=== PATIENT | male | born 1940 | race Caucasian/White ===

== ENCOUNTER 2016-05-28 13:55 | Inpatient (IN) | payer MEDICAID, MEDICARE ==
[~2016-05-28] VITALS: Ht 172.7 cm; Wt 78.9 kg
[2016-05-28] VITALS (8 sets, daily range): BP systolic 107–137; BP diastolic 56–68; PULSE 78–103; RESP 18–24; O2SAT 93–98
[~2016-05-28 13:55] MED LIST: ADV100INH INHALATION; IPRA4AER IH; LOSA25TA2 PO; METO25TA99 PO; Senna/Docusate Sodium PO; WARF2.5T PO
--- NOTE | 2016-05-28 14:13 | ED.REPORT ---
HPI-Dyspnea / Wheezing Date of Service May 28, 2016 ED Provider: MD Derek This is a 75 year old male with a history of COPD and CHF presenting to the emergency department due to shortness of breath that worsened 2 days ago. Associated symptoms include hemoptysis that began today and productive cough in the last few days with clear sputum. Denies fever, chills, nausea, vomiting, abdominal pain, bowel or bladder changes at this time. Started on azithromycin by PCP on , symptoms have been worsening. On 2 liters home O2. Nursing Notes Stated Complaint: SHORTNESS OF BREATH/SPITTING UP BLOOD Chief Complaint: Respiratory Distress Nursing Notes Reviewed: Yes Allergies: Coded Allergies: No Known Allergies (Unverified , 05/28/16) Scheduled ([Senna/Docusate Sodium]) 1 TABLET TABLET 2 TABLET PO DAILY ([Performist]) 20 MCG INHALATION BID Albuterol/Ipratropium (Combivent Respimat Inhal [place]) 120 Spr/4 Gm Inhaler 1 PUFF IH QID Azithromycin (Zithromax) 250 Mg Tablet 250 MG PO DAILY Budesonide (Pulmicort Flexhaler) 1 Puff/90 Mcg Aerp 1 PUFF IH BID Fluticasone/Salmeterol (Advair 100-50 Diskus) 60 Puffs/Inh Disk 1 PUFF INHALATION BID Furosemide (Furosemide) 40 Mg Tablet 40 MG PO DAILY Losartan Potassium (Cozaar) 25 Mg Tablet 50 MG PO DAILY Losartan Potassium (Losartan Potassium) 100 Mg Tablet 100 MG PO DAILY Metoprolol Succinate ER (Metoprolol Succinate ER) 50 Mg Tab.er.24h 50 MG PO BID Pantoprazole DR (Pantoprazole DR) 40 Mg Tablet.dr 40 MG PO DAILY Warfarin Sodium (Warfarin Sodium) 2.5 Mg Tablet 3.75 MG PO DAILY General Time Seen by : 14:12 Chief Complaint Other Hx Obtained From: Patient Arrived By: Walk-in Sudden in Onset?: Yes Onset Occurred: 2 days ago Symptom Duration: Since onset Severity: Current: No pain currently Pertinent Negative: Pt denies other symptoms Recent Healthcare: No recent doctor visit, No recent hospitalization Similar Sx Previous: No Past Medical History Past Medical History COPD CHF Past Surgical History none reported Smoking History Current Every Day Smoker Ambulatory Status Independent Review of Systems Constitutional: Denies: Chills, Fever Respiratory: Reports: Prod cough, bloody, Prod cough, clear, Shortness of breath Cardiovascular: Denies: Chest pain Complete sys rev & neg: except as marked. Neurologic: Denies: Lightheaded, Numbness, Weakness Physical Exam Initial Vital Signs Vital Signs (First) Date Time Temp Pulse Resp B/P Pulse Ox O2 Delivery O2 Flow Rate FiO2 05/28/16 14:05 37.3 103 24 137/68 96 Nasal Cannula 4 Initial VS: Reviewed Head / Eyes: Atraumatic, Normocephalic, PERRL ENT: Mucous membranes moist, Conjunctiva normal, No scleral icterus Extremities: Vascular intact, Neuro intact, No swelling, No tenderness Skin: Warm, Dry, No cyanosis Neurologic: Alert, Oriented, Nonfocal Psychiatric: Mood/affect normal, Behavior normal, Normal thought content General/Constitutional: Awake, Alert Neck: Atraumatic, Supple, No meningismus, Full range of motion, No swelling, Non-tender, No masses Resp Distress / Stridor: Positive: Resp distress mild Rales / Rhonchi: Positive: Rales R base Cardiovascular: No murmurs, No rubs Heart Rate / Rhythm: Positive: Tachycardia Abdomen: Non-tender, No guarding, No rebound, BS normoactive Bowel Sounds / Distention: Positive: Distention mild Interpretation & Diagnostics Lab Results Interpretation Result Diagram: 05/28/16 1410 Test 05/28/16 14:10 White Blood Count 14.1th/mm3 (3.8-10.1) Red Blood Count 3.80mil/mm3 (4.40-5.80) Hemoglobin 11.6g/dL (13.8-17.2) Hematocrit 35.4% (41.0-50.0) Mean Corpuscular Volume 93.2fL (81-100) Mean Corpuscular Hemoglobin 30.5pg (27.0-35.0) Mean Corpuscular Hemoglobin Concent 32.8% (32.0-37.0) Red Cell Distribution Width 14.6% (12.3-15.4) Platelet Count 121bil/L (150-400) Neutrophils (%) (Auto) 76.8% (40-74) Lymphocytes (%) (Auto) 10.7% (14-46) Monocytes (%) (Auto) 11.2% (4-12) Eosinophils (%) (Auto) 0.9% (0-5) Basophils (%) (Auto) 0.1% (0-3) ECG Interpretation ECG Interpretation: NSR at a rate of 94 Time: 14:32 Interpreted by: ED physician Normal ECG Interpretation: Normal rate, Normal sinus rhythm, No acute ischemic changes, Normal QRS, Normal axis, Normal intervals, No change from prior ECGs, Adequate tracing Re-Eval/Medical Decision Med Decision/Clinical Course This patient has a right lower lobe pneumonia is already on antibiotics. He is feeling outpatient treatment and all need to be admitted. The patient is somewhat hesitant about admission. He is sent out to my colleague Dr. Mitchell. Counseled Regarding: Diagnosis, Lab results, Need for follow-up Discharge & Departure Impression: Primary Impression: Pneumonia Pneumonia type: due to unspecified organism Laterality: right Lung location : lower lobe of lung Qualified Code: J18.9 - Pneumonia, unspecified organism Referrals: Natasha Garcia PAC (PCP) Care Transferred to: Dr. Mitchell Care Transferred at: 15:00 Scribe Attestation Portions of this note were transcribed by Navdeep Martinez. I, Dr. Reed personally performed the history, physical exam and medical decision-making; I reviewed and confirmed the accuracy of the information in the transcribed note. Signed by: car Ledbetter. 05/28/2016, 15:00. Danuta Reed MD May 28, 2016 14:13 NAVDEEP MARTINEZ May 28, 2016 14:15
[2016-05-28] MEDS ORDERED: PANT40TA3 PO (14:16)
[2016-05-28] MEDS ORDERED: BUDE90AE IH (14:16)
[2016-05-28] MEDS ORDERED: ZIT250 PO (14:16)
[2016-05-28] MEDS ORDERED: WARF2.5T82 PO (14:16)
[2016-05-28] MEDS ORDERED: METO-272 PO (14:16)
[2016-05-28] MEDS ORDERED: FURO40TA4 PO (14:16)
[2016-05-28] MEDS ORDERED: PERFORMIST INHALATION (14:16)
[2016-05-28] MEDS ORDERED: LOSA100T29 PO (14:16)
[2016-05-28] MEDS ORDERED: Albuterol-Ipratropium 3 mL Inhalation Solution NEB ONE (14:45)
[2016-05-28 14:51] LABS: BASOPHILS % (AUTO) 0.1 % (0-3); EOSINOPHILS % (AUTO) 0.9 % (0-5); MONOCYTES % (AUTO) 11.2 % (4-12); Mean Corpuscular Hemoglobin 30.5 pg (27.0-35.0); Mean Corpuscular Volume 93.2 fL (81-100); NEUTROPHILS % (AUTO) 76.8 % (40-74); Platelet Count 121 bil/L (150-400)
--- NOTE | 2016-05-28 14:54 | DRSVH ---
PROCEDURE: X-RAY CHEST ONE VIEW, PORTABLE ([id number]) INDICATIONS: SOB TECHNIQUE: One view of the chest was acquired. COMPARISON: [facility], CR, XR CHEST 2VW, 01/18/2016, 14:02. FINDINGS: Surgical changes and devices: None. Lungs and pleura: The lung volumes are large, the diaphragms are flattened, and there is a paucity o f superior blood vessels suggesting severe emphysematous change. Patchy pulmonary opacities are prese nt within the right mid and lower lung. Mediastinum: Mediastinal contours appear normal. Heart size is normal. Bones and chest wall: No suspicious bony lesions. Overlying soft tissues appear unremarkable. IMPRESSION: Right mid and lower lung patchy radiopacities suspicious for aspiration/infection superim posed on severe centrilobular emphysema. Short interval followup is recommended to ensure resolution of this finding and exclude underlying pulmonary pathology. Dictated by: Taniya Flor M.D. on 05/28/2016 at 14:51 Approved by: Taniya Flor M.D. on 05/28/2016 at 14:52
[2016-05-28 15:15] LABS: INR 4.13 ratio
[2016-05-28 15:18] LABS: TROPONIN T 0.033 ug/L (0.0-0.011)
[2016-05-28 15:29] LABS: Magnesium 2.3 mg/dL (1.6-2.6)
[2016-05-28] MEDS ORDERED: Albuterol 2.5 mg/3 mL Inhalation Solution NEB ONE (16:10)
[2016-05-28] MEDS ORDERED: 0.9% Sodium Chloride 1,000 ML IV ONE (16:50)
[2016-05-28] MEDS ORDERED: Piperacillin-Tazo 3.375 Gm Inj 3.375 GM in Dextrose 5% Minibag Plus 50 ML IV ONE (16:50)
[2016-05-28] MEDS ORDERED: levoFLOXacin Inj 750 MG in IV Premix 1 EACH IV ONE (16:50)
[2016-05-28] MEDS ORDERED: Alum-Mag Hydrox-Simeth 30 mL Suspension PO PRN (17:15)
[2016-05-28] MEDS ORDERED: Polyethylene Glycol (PEG) 17 Gm Powder PO PRN (17:15)
[2016-05-28] MEDS ORDERED: TRAZ150T72 PO (18:40)
--- NOTE | 2016-05-28 19:26 | NUR ---
ADMIT Report received from LICO Lamb in ED. Pt brought up to unit via gurney at 1800. Oriented to unit, room, and call light. Tele attached, IV ABX continued, O2 running at 3L. Pt strong with steady gate. Med rec completed and reviewed, admission interventions completed. Pt spitting up large amounts of blood. aware, next shift to continue with care.
[2016-05-28] MEDS: 0.9% Sodium Chloride 1,000 ML IV SCH (19:39)
[2016-05-28] MEDS: Fluticasone 100 mCg Inhaler INHALATION SCH (19:48)
[2016-05-28] MEDS: MeTOProlol XL 50 mg ER24 Tablet PO SCH (19:51)
[2016-05-28] MEDS ORDERED: Fluticasone-Salmeterol 100-50 Inhaler INHALATION SCH (20:30)
[2016-05-28] MEDS ORDERED: PERFORMIST PO SCH (20:30)
[2016-05-28] MEDS: Albuterol-Ipratropium 3 mL Inhalation Solution NEB SCH (21:30)
--- NOTE | 2016-05-28 22:49 | PCM.HPMED ---
Subjective Date of Service May 28, 2016 Primary Provider: Admitting Physician: Wisam Burns MD Primary Care Physician: Cam Alston MD Attending Physician: Wisam Burns MD Admit Status: From the Emergency Department Chief Complaint: Shortness of breath and blood in Saliva History of Present Illness: This is a 75 year-old male who states that he has noticed blood in his saliva, denying any blood in sputum or emesis. He has also been progressively short of breath for the last 2 days with increasing hypoxia. His daughter who he lives with states that his saturation was down to 70% but reached above 90% when placed on 4 L nasal cannula. There has been no chest pain or vomiting. He has had very little coughing. He has never seen blood in his saliva before. He has had pneumonia 4 times since January and is currently on erythromycin 1 tablet daily for prophylaxis. He has also gained 15 pounds in the last month and a half and has noticed increasing abdominal girth. This is likely due to increased steroid use over that time. He was started on Coumadin for bilateral femoral vein DVTs back in January. His VQ scan showed matched deficits at that time. The chest x-ray today shows a curious appearing right lower lobe infiltrate that is consistent with hemorrhage or straightforward pneumonia per my discussion with radiology. He is not showing any signs of the severe renal failure that he experienced in his last hospitalization. The creatinine has risen slightly but not to the previous levels. He quit smoking and drinking alcohol 6 months ago. He also has a history of acute on chronic heart failure with reduced ejection fraction that is followed by Dr. Martínez. His troponin today is 0.033. Review of Systems: Positive for bloody sputum/saliva, shortness of breath, increasing hypoxia. Negative for chest pain, coughing, fever, chills, sweats, nausea, vomiting, abdominal pain, dysuria, GI bleed, rash, joint pain, seizures, headaches, sore throat, new allergies, hearing loss. Allergies Coded Allergies: No Known Allergies (Unverified , 05/28/16) PMH 1. congestive heart failure, with an ejection fraction of 25%. Was found to also has severe mitral regurgitation, severe tricuspid regurgitation. 2. History of COPD. 3. History of tobacco abuse. 4. History of alcohol abuse. 5. Acute Kidney Injury 6. DVT Bilateral LE Family History Mom and dad of complications from diabetes apparently. Social History Hx Alcohol Use: No (Quit 7 days ago) Hx Substance Use: No Hx Tobacco Use: Yes Smoking Status: Former Smoker Living Arrangement: with Family (Daughter ) Additional Information PCP is Dr. Alston Weight Reduction Specialist is Dr. Novak He lives with daughter. Smoking a pack a day for 50 years, quit 6 months ago. Alcohol: Drinks 10 cans of beer per week until 6 months ago. Exam Vital Signs Vital Sign - Last Date Time Temp Pulse Resp B/P Pulse Ox O2 Delivery O2 Flow Rate FiO2 05/28/16 17:13 85 22 93 Nasal Cannula 2 05/28/16 14:05 37.3 137/68 Exam He is alert, oriented 3, quick witted, and does not appear to be in significant distress. Pupils are equally round and reactive to light and accommodation. Extraocular muscles are intact. Sclerae are pink and nonicteric. Throat looks normal. Lymph nodes are felt head, neck, supraclavicular area. No thyromegaly JVD is less than 6 cm No carotid bruits are heard Heart is regular rate and rhythm without murmur. Lungs are notable for right base crackles. Abdomen is soft, nontender, no organomegaly or mass, bowel sounds are heard Extremities have no ankle edema Skin has no rash or jaundice Neuro exam. Cranial nerves II through XII tested intact. There is no tremor. Motor function is 4/5 throughout. Lab and Diagnostics Labs INR is 4.13 BNP is 847 Pro calcitonin is 0.1 Result Diagram: 05/28/16 1410 05/28/16 1410 X-Rays, CTs and MRIs X-RAY CHEST ONE VIEW, PORTABLE ([id number]) INDICATIONS: SOB TECHNIQUE: One view of the chest was acquired. COMPARISON: [facility], CR, XR CHEST 2VW, 01/18/2016, 14:02. FINDINGS: Surgical changes and devices: None. Lungs and pleura: The lung volumes are large, the diaphragms are flattened, and there is a paucity of superior blood vessels suggesting severe emphysematous change. Patchy pulmonary opacities are present within the right mid and lower lung. Mediastinum: Mediastinal contours appear normal. Heart size is normal. Bones and chest wall: No suspicious bony lesions. Overlying soft tissues appear unremarkable. IMPRESSION: Right mid and lower lung patchy radiopacities suspicious for aspiration/infection superimposed on severe centrilobular emphysema. Short interval followup is recommended to ensure resolution of this finding and exclude underlying pulmonary pathology. Dictated by: Taniya Flor M.D. Assessment & Plan 1 - Pulmonary Hemorrhage/Pneumonia -Hold Coumadin and consider Vit K/FFP if bleeding recurs or H/H drops -He does have a documented history of DVT and so stopping anticoagulation could cause more problems than continuing it. We will see how the balance goes. -D/W radiology. The RLL infiltrate looks like Blood to me but the Procalcitonin is slightly elevated -Continue on Levaquin IV -The blood and saliva would appear to be a pulmonary source. 2 - COPD Exacerbation/Pneumonia -Begin IV Solumedrol -Continue Oxygen by NC 3 - HTN/CHF/Valvular Heart Disease and Cardiomyopathy -Continue his usual Cardiac medicines of losartan, metoprolol, Lasix. -Cautious IV fluid hydration overnight. -The BNP is 847. 4 - Acute on Chronic Kidney Disease -IVF to be given cautiously and BMP to be repeated in the morning. Darin Burns MD Pain Evaluation: Adequate Pain Control VTE Prophylaxis: Theraputic Anticoag with Warfarin Resuscitation Status: CPR: Attempt Resuscitation Wisam Burns MD May 28, 2016 18:00
[2016-05-29] VITALS (11 sets, daily range): BP systolic 114–160; BP diastolic 63–72; PULSE 91–110; RESP 20–24; O2SAT 93–99
[2016-05-29] MEDS: 0.9% Sodium Chloride 1,000 ML IV SCH ×2 (05:43→15:40)
[2016-05-29 06:03] LABS: BASOPHILS % (AUTO) 0.1 % (0-3); EOSINOPHILS % (AUTO) 1.8 % (0-5); MONOCYTES % (AUTO) 13.1 % (4-12); Mean Corpuscular Hemoglobin 30.2 pg (27.0-35.0); Mean Corpuscular Volume 93.5 fL (81-100); NEUTROPHILS % (AUTO) 69.3 % (40-74); Platelet Count 89 bil/L (150-400)
[2016-05-29 06:23] LABS: INR 3.23 ratio
--- NOTE | 2016-05-29 06:57 | NUR ---
Cough Pts cough frequency slowly decreased through out the shift. Slept well after receiving trazodone.
[2016-05-29] MEDS: Albuterol-Ipratropium 3 mL Inhalation Solution NEB SCH ×4 (07:37→20:14)
[2016-05-29] MEDS: FORMOTEROL FUMARATE INHALATION SCH ×2 (08:22→20:13)
[2016-05-29] MEDS: MeTOProlol XL 50 mg ER24 Tablet PO SCH ×2 (08:30→21:45)
[2016-05-29] MEDS: Senna-Docusate 8.6-50 mg Tablet PO SCH (09:05)
[2016-05-29] MEDS: Pantoprazole 40 mg ER24 Tablet PO SCH (09:05)
[2016-05-29] MEDS: Fluticasone 100 mCg Inhaler INHALATION SCH ×2 (11:14→21:44)
--- NOTE | 2016-05-29 11:15 | PCM.PNMED ---
Subjective Date of Service May 29, 2016 Subjective Feels like breathing is getting better but still coughing up blood, no chest pain, no nausea or vomiting Exam Vital Signs Vital Sign - Last Date Time Temp Pulse Resp B/P Pulse Ox O2 Delivery O2 Flow Rate FiO2 05/29/16 11:08 101 05/29/16 09:59 36.6 24 131/72 97 Nasal Cannula 3.00 Intake and Output 05/28/16 05/28/16 05/29/16 Cumulative From/Thru 15:00 23:00 07:00 05/28/16 14:05 - 05/29/16 06:07 Intake Total 1674 ml 1674 ml Output Total 625 ml 625 ml Balance 1049 ml 1049 ml Intake Oral 674 ml 674 ml IV Total 1000 ml 1000 ml Output Urine Total 625 ml 625 ml # Bowel Movements 0 0 Exam Gen- He is alert, oriented 3, quick witted, and does not appear to be in significant distress. Thin male sitting up in chair eyes- Pupils are equal Extraocular muscles are intact. Sclerae are pink and nonicteric. Neck-trach midline Heart is regular rate and rhythm without murmur. Lungs are notable for right base crackles. otherwise CTA no wheezes or rhonchi Abdomen is soft, nontender, no organomegaly or mass, bowel sounds are heard musc- have no ankle edema, moving 4 Skin has no rash or jaundice Neuro exam. Cranial nerves II through XII intact, gross neuro exam nonfocal Psych- patient is pleasant and appropriate Lab and Diagnostics Result Diagram: 05/29/16 0530 05/29/16 0530 X-Rays, CTs and MRIs X-RAY CHEST ONE VIEW, PORTABLE ([id number]) INDICATIONS: SOB TECHNIQUE: One view of the chest was acquired. COMPARISON: [facility], CR, XR CHEST 2VW, 01/18/2016, 14:02. FINDINGS: Surgical changes and devices: None. Lungs and pleura: The lung volumes are large, the diaphragms are flattened, and there is a paucity of superior blood vessels suggesting severe emphysematous change. Patchy pulmonary opacities are present within the right mid and lower lung. Mediastinum: Mediastinal contours appear normal. Heart size is normal. Bones and chest wall: No suspicious bony lesions. Overlying soft tissues appear unremarkable. IMPRESSION: Right mid and lower lung patchy radiopacities suspicious for aspiration/infection superimposed on severe centrilobular emphysema. Short interval followup is recommended to ensure resolution of this finding and exclude underlying pulmonary pathology. Dictated by: Taniya Flor M.D. Assessment & Plan 75-year-old male admitted 05/28 with pneumonia/pulmonary hemorrhage. He was in acute respiratory failure that seems to have resolved overnight. # Pulmonary Hemorrhage/Pneumonia -Hold Coumadin and consider Vit K/FFP if bleeding recurs or H/H drops -He does have a documented history of DVT and so stopping anticoagulation could cause more problems than continuing it. We will see how the balance goes. -D/W radiology. The RLL infiltrate looks like Blood to me but the Procalcitonin is slightly elevated -Continue on Levaquin IV -The blood and saliva would appear to be a pulmonary source. #Acute blood loss anemia -Following H&H at least daily -Correct supratherapeutic INR vitamin K 05/29 # COPD Exacerbation/Pneumonia -cont IV Solumedrol -Continue Oxygen by NC # HTN/CHF/Valvular Heart Disease and Cardiomyopathy -Continue his usual Cardiac medicines of losartan, metoprolol, Lasix. -Cautious IV fluid hydration overnight. -The BNP is 847. # Acute on Chronic Kidney Disease -IVF to be given cautiously and BMP to be repeated in the morning. #Thrombocytopenia-baseline platelet seemed to be around 90,000 historically #Vitamin K -In the setting of warfarin/Levaquin I will give vitamin K 2.5 mg by mouth 05/29 VTE Prophylaxis: Theraputic Anticoag with Warfarin VTE Mechanical Devices: Intermittant Pneumatic CD Resuscitation Status: CPR: Attempt Resuscitation Mak Powell MD May 29, 2016 11:15
[2016-05-29] MEDS ORDERED: Phytonadione (Adult) 10 mg/1 mL Inj PO ONE (11:20)
--- NOTE | 2016-05-29 15:55 | NUR ---
Medications/Coughing up blood Pt complained about taking Flovent during morning administration. Willing to take dose but prefers Nebulizer treatments. Explained to pt about the importance of following MD medication regimen and that each medication has a specific purpose. Pt willing to comply, daughter in room to help reinforce following MD orders. Reported that pt coughing up blood during NOC shift has been reduced from when admitted. During the morning pt still coughing up blood, reported to be less than day before. Administered PO Vitamin K per orders. Have not seen pt cough up any blood since. Continuing to monitor.
[2016-05-29 19:51] LABS: Unsaturated Iron Binding 195.7 ug/dL
[2016-05-30] VITALS (12 sets, daily range): BP systolic 127–164; BP diastolic 66–73; PULSE 80–117; RESP 20–22; O2SAT 91–96
[2016-05-30] MEDS: 0.9% Sodium Chloride 1,000 ML IV SCH ×3 (00:02→21:47)
--- NOTE | 2016-05-30 03:23 | NUR ---
Patient continues to cough of avelina blood. Dozing most of the night. Able to get up with SBA and give self sponge bath in restroom tonight. Able to verbalize needs and using call light appropriately.
[2016-05-30 07:00] LABS: BASOPHILS % (AUTO) 0.1 % (0-3); EOSINOPHILS % (AUTO) 4.1 % (0-5); MONOCYTES % (AUTO) 13.7 % (4-12); Mean Corpuscular Hemoglobin 30.8 pg (27.0-35.0); Mean Corpuscular Volume 93.9 fL (81-100); NEUTROPHILS % (AUTO) 65.5 % (40-74); Platelet Count 96 bil/L (150-400)
[2016-05-30] MEDS: Albuterol-Ipratropium 3 mL Inhalation Solution NEB SCH ×4 (07:33→22:10)
[2016-05-30 07:41] LABS: TROPONIN T 0.019 ug/L (0.0-0.011)
[2016-05-30] MEDS: FORMOTEROL FUMARATE INHALATION SCH ×2 (07:45→20:30)
--- NOTE | 2016-05-30 08:00 | NUR ---
Pt off floor to XRAY via WC
[2016-05-30] MEDS: Senna-Docusate 8.6-50 mg Tablet PO SCH (08:38)
[2016-05-30] MEDS: MeTOProlol XL 50 mg ER24 Tablet PO SCH ×2 (08:38→21:20)
[2016-05-30] MEDS: Pantoprazole 40 mg ER24 Tablet PO SCH (08:38)
[2016-05-30] MEDS: Fluticasone 100 mCg Inhaler INHALATION SCH ×2 (08:38→21:20)
[2016-05-30 08:58] LABS: INR 1.39 ratio
--- NOTE | 2016-05-30 08:59 | DRSVH ---
PROCEDURE: X-RAY CHEST, TWO VIEWS ([id number]) INDICATIONS: pneumonia/possible pulmonary hemorrhage TECHNIQUE: 2 views of the chest were acquired. COMPARISON: [facility], CR, XR CHEST 1VW (PORTABLE), 05/28/2016, 14:11. FINDINGS: Surgical changes and devices: None. Lungs and pleura: The lung volumes are large, the diaphragms are flattened, and there is a paucity o f superior blood vessels suggesting severe emphysematous change. Patchy pulmonary opacities are prese nt within the right mid and lower lung. Mediastinum: Mediastinal contours appear normal. Heart size is normal. Bones and chest wall: No suspicious bony lesions. Overlying soft tissues appear unremarkable. IMPRESSION: 1. Mid right and lower lung diffuse interstitial opacities redemonstrated not significantly changed w hich may be related to aspiration/infection but pulmonary hemorrhage cannot be excluded. If indicate d chest CT scan could be performed for further characterization. 2. Emphysematous changes redemonstrated. Dictated by: Sudhakar DAVIS Interpreted: Maki Mayer MD on 05/30/2016 at 8:36 Transcribed by: IMTIAZ on 05/30/2016 at 8:58 Approved by: Maki Mayer M.D. on 05/30/2016 at 16:33
--- NOTE | 2016-05-30 08:59 | NUR ---
Social Work Note - Initial Assessment: D/A: See Initial Assessment. The Pt is a 75 y/o male that was admitted for bilat pneumonia, failed output tx, hypoxia. The Pt's PCP is MD Cam Alston and his primary insurance is Medicare with a [facility] Medicaid supplement, no LTC or VA benefits. EMR reviewed, MOISES met with the Pt and the Pt's daughter to explain role and discuss discharge planning. MOISES telephone number written on white board. The Pt lives in a one story home in [place] with his daughter Pina. The Pt reports that his daughter Pina is his DPOA, copy requested. The Pt reports that his daughter assists with all of his caregiving needs to include cooking, cleaning, medications, personal care, and driving. The Pt has a hospital bed, wheelchair, and walker at home. He has home oxygen (2l) with [employer]. He has had [facility] in the past but denies a SNF history. PT evaluation completed, recommending return home once medically stable. The Pt denies any needs at this time, SW to follow if needs arise. P: Pt likely to discharge home with family to provide POV transportation when medically stable. The Pt denies any needs at this time, SW to follow if needs arise. MIGUEL Saldana Weaving Supervisor MIGUEL Hinson Addendum: 05/30/16 at 0928 by YELENA CARMONA Amended: Links added.
--- NOTE | 2016-05-30 09:27 | NUR ---
Social Work Note - Initial Assessment: D/A: See Initial Assessment. The Pt is a 75 y/o male that was admitted for bilat pneumonia, failed output tx, hypoxia. The Pt's PCP is MD Cam Alston and his primary insurance is Medicare with a [facility] Medicaid supplement, no LTC or VA benefits. EMR reviewed, MOISES met with the Pt and the Pt's daughter to explain role and discuss discharge planning. MOISES telephone number written on white board. The Pt lives in a one story home in [place] with his daughter Pina. The Pt reports that his daughter Pina is his DPOA, copy requested. The Pt reports that his daughter assists with all of his caregiving needs to include cooking, cleaning, medications, personal care, and driving. The Pt has a hospital bed, wheelchair, and walker at home. He has home oxygen (2l) with [employer]. He has had [facility] in the past but denies a SNF history. PT evaluation completed, recommending return home once medically stable. The Pt denies any needs at this time, SW to follow if needs arise. P: Pt likely to discharge home with family to provide POV transportation when medically stable. The Pt denies any needs at this time, SW to follow if needs arise. MIGUEL Saldana Venetian Blind Worker MIGUEL Hinson Addendum: 05/30/16 at 0927 by YELENA CARMONA Amended: Links added.
--- NOTE | 2016-05-30 14:23 | PCM.CHPMED ---
Subjective Date of Service: May 30, 2016 Provider requesting consult: Mak Powell MD Primary Physician: Admitting Physician: Wisam Burns MD Primary Care Physician: Cam Alston MD Attending Physician: Wisam Burns MD Chief Complaint: Chief Complaint: Hemoptysis History of Present Illness: Pulmonology Consult: Attending physician Dr. Fabio Mcneil. Requesting Physician Dr. Powell Mr Hein is a 75 year old male with a past medical history of COPD, CHF with EF of ~23% and MR, DVT, Pulmonary hypertension and renal insufficiency presented to [facility] ED secondary to hemoptysis x 2 days. Pt was hospitalized December/January 2016 for Heart failure with reduced ejection fraction(CHF); COPD; acute kidney injury and liver injury. He was discharged with cardiac and blood pressure medication adjustment which included the discontinuation of furosemide, COPD inhalers and home O2. He was also started on Warfarin secondary to his DVT's. Since discharge from the hospital in 2015 Pt reports that he has had 5 bouts of pneumonia which have required prophylactic antibiotic treatment. He has had a continual productive cough of green/yellow sputum but does not report and fevers or chills. He has gained ~15lbs over the last month. In the 2-3 days leading up to this admission Pt endorses coughing up blood about 4 times per day while awake and not during the night. The blood loss is reported as small/ mild. He denies N/V, ABD pain, CP, KIM, Dizzyness, Blurred vision. Mr. Abdullahi was born in [place] and moved to [facility] when he was a kid. 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 He currently lives with his daughter and son-in-law who appeared to care for him. Pets in the home including dog and a cat and he does endorse owning a period approximately 20 years ago. He is a lifetime smoker stating that he started smoking at age 5 , and has smoked 2 packs per day until approximately 6 months ago after his last hospital admission. He has traveled to [facility] in [place] though nowhere in the last 3-4 years. Son-in-law was present during the interview both deny other sick contacts in the home. Patient's PCP is Dr. Alston. [facility] Past Medical History 1. Congestive heart failure, with an ejection fraction of 25%. Was found to also has severe mitral regurgitation, severe tricuspid regurgitation. 2. History of COPD. 3. History of tobacco abuse. 4. History of alcohol abuse. 5. Acute Kidney Injury 6. DVT Bilateral LE Allergies: Coded Allergies: No Known Allergies (Unverified , 05/28/16) Family History Family History Mother and Father both Dx with DM, per Pt from complications due to DM Social History Hx Alcohol Use: Yes (Quit 7 days ago)Alcoholic Drinks Per Day: 10Hx Substance Use: NoHx Tobacco Use: Yes Smoking Status: Former Smoker Living Arrangement: with Family (Daughter ) Exam Vital Signs Vital Sign - Last Date Time Temp Pulse Resp B/P Pulse Ox O2 Delivery O2 Flow Rate FiO2 05/30/16 12:44 36.6 90 20 136/68 93 Nasal Cannula 2.00 Intake and Output 05/29/16 05/29/16 05/30/16 Cumulative From/Thru 15:00 23:00 07:00 05/28/16 14:05 - 05/30/16 06:41 Intake Total 2458 ml 1458 ml 5590 ml Output Total 1375 ml 575 ml 2575 ml Balance 1083 ml 883 ml 3015 ml Intake Oral 1200 ml 400 ml 2274 ml IV Total 1258 ml 1058 ml 3316 ml Output Urine Total 1375 ml 575 ml 2575 ml # Bowel Movements 0 1 1 Additional Information: General: Sitting up in bed in no acute distress, appropriately interactive reactive HEENT: Normocephalic, atraumatic. External ears without defect. Pupils equal, round, and reactive to light and accommodation. Anicteric sclerae, moist conjunctivae, and no lid lag. Oropharynx free of erythema and cobble stoning with moist mucosa. Edentulous. Neck: Jugular venous distention present, No bruits. Cardiovascular: Regular rate and rhythm with no murmurs, rubs, or gallops appreciated. Pulmonary: Right lower lobe crackles, accessory neck muscle usage during inspiration. Bronchial breath sounds heard in the bilateral upper lung andrews. C Abdomen: Bowel tones present. Soft, nontender, nondistended. Extremities: Finger clubbing, no cyanosis. Lower extremity pretibial edema. Neurological: Cranial nerves grossly intact. Psychiatric: Normal mood and affect. Alert and oriented to person, place, and time. Lab and Diagnostics Result Diagram: 05/30/16 0610 05/30/16 0610 X-Rays, CTs and MRIs . X-RAY CHEST ONE VIEW, PORTABLE 05/28/2016 IMPRESSION: Right mid and lower lung patchy radiopacities suspicious for aspiration/infection superimposed on severe centrilobular emphysema. Short interval followup is recommended to ensure resolution of this finding and exclude underlying pulmonary pathology. X-RAY CHEST, TWO VIEWS 05/30/2016 IMPRESSION: 1. Mid right and lower lung diffuse interstitial opacities redemonstrated not significantly changed which may be related to aspiration/infection but pulmonary hemorrhage cannot be excluded. If indicated chest CT scan could be performed for further characterization. 2. Emphysematous changes redemonstrated. Assessment & Plan Assessment 75 male with PMH of COPD, CHF with EF of ~23% and MR, DVT, Pulmonary hypertension and renal insufficiency. 1. Hemoptysis. Patient had been coughing up blood 2 days prior to hospital admission and continues to have hemoptysis during hospital admission. Significant past medical history of DVTs and possible PE secondary to VQ mismatch during last hospital admission. There is a concern for recurrent PE, though it is also likely that current hemoptysis is the result of trauma secondary to recurrent hacking cough with supratherapeutic INR on admission as well as the possibility of an underlying neoplasm. - CT angiogram pending - Doppler lower extremities pending - Continue to hold warfarin - Based on results of CT and lower extremity US will consider diagnostic bronchoscopy. 2. Possible pneumonia versus pulmonary hemorrhage. - CXR showed RLL infiltrate pulmonary hemorrhage versus aspiration. - Pro calcitonin mildly elevated 0.12 from 0.1 - Current antibiotics levofloxacin - Hemoglobin 11.6 on admit currently 9.6 - INR 1.39 from 4.1. 3 COPD. - Continue oxygen via nasal cannula - Continue Flovent, DuoNeb nebs 4. CHF. Echo done 01/06/2016 showed EF 23% with mitral and tricuspid regurgitation. Physical exam findings do show lower extremity edema - Repeat echo pending - Continue home metoprolol, losartan - Lasix 40 mg daily Chronic Problems Hypertension, CKD, thrombocytopenia to be managed by primary team Problems: Pain Evaluation: Adequate Pain Control VTE Prophylaxis: Theraputic Anticoag with Warfarin VTE Mechanical Devices: Intermittant Pneumatic CD Resuscitation Status: CPR: Attempt Resuscitation Attending Statement The patient was seen and examined together with Dr. Merino on 05/30/2016 and I agree with the history, exam and plan as outlined in the note above. ROSALINDA MERINO DO May 30, 2016 14:23 Fabio Mcneil MD May 31, 2016 11:25
--- NOTE | 2016-05-30 14:48 | NUR ---
SOB Exacerbation Pt in side lying position while in bed for Echocardiogram. SBA ambulated to bathroom afterwards. SOB exacerbation afterwards, SpO2 at 88%. 2L O2 NC. Pt resting in seated position on bed. Breathing improved. Instructed/taught pt that with position during ECHO and ambulating made it difficult to breath. Pt SpO2 improved to 92% with some rest. Notes on board to not over exacerbate self with activity. Continuing with care.
--- NOTE | 2016-05-30 15:03 | PCM.PNMED ---
Subjective Date of Service May 30, 2016 Subjective Other than continuing hemoptysis patient has no complaints. His dyspnea is about stable, he has not having chest pain and he has no nausea or vomiting Exam Vital Signs Vital Sign - Last Date Time Temp Pulse Resp B/P Pulse Ox O2 Delivery O2 Flow Rate FiO2 05/30/16 05:51 36.6 92 22 150/68 93 Nasal Cannula 2.00 Intake and Output 05/29/16 05/29/16 05/30/16 Cumulative From/Thru 15:00 23:00 07:00 05/28/16 14:05 - 05/30/16 06:41 Intake Total 2458 ml 1458 ml 5590 ml Output Total 1375 ml 575 ml 2575 ml Balance 1083 ml 883 ml 3015 ml Intake Oral 1200 ml 400 ml 2274 ml IV Total 1258 ml 1058 ml 3316 ml Output Urine Total 1375 ml 575 ml 2575 ml # Bowel Movements 0 1 1 Exam Gen- He is alert, oriented 3, Thin male sitting up in chair in no apparent distress eyes- Pupils are equal Extraocular muscles are intact. Sclerae are pink and nonicteric. Neck-trach midline Heart is regular rate and rhythm without murmur. Lungs are notable for right base crackles. otherwise CTA no wheezes or rhonchi Abdomen is soft, nontender, no organomegaly or mass, bowel sounds are heard musc- have no ankle edema, moving 4 Skin has no rash or jaundice Neuro exam. Cranial nerves II through XII intact, gross neuro exam nonfocal Psych- patient is pleasant and appropriate Lab and Diagnostics Result Diagram: 05/29/16 1905 05/29/16 0530 X-Rays, CTs and MRIs X-RAY CHEST ONE VIEW, PORTABLE ([id number]) INDICATIONS: SOB TECHNIQUE: One view of the chest was acquired. COMPARISON: [facility], CR, XR CHEST 2VW, 01/18/2016, 14:02. FINDINGS: Surgical changes and devices: None. Lungs and pleura: The lung volumes are large, the diaphragms are flattened, and there is a paucity of superior blood vessels suggesting severe emphysematous change. Patchy pulmonary opacities are present within the right mid and lower lung. Mediastinum: Mediastinal contours appear normal. Heart size is normal. Bones and chest wall: No suspicious bony lesions. Overlying soft tissues appear unremarkable. IMPRESSION: Right mid and lower lung patchy radiopacities suspicious for aspiration/infection superimposed on severe centrilobular emphysema. Short interval followup is recommended to ensure resolution of this finding and exclude underlying pulmonary pathology. Dictated by: Taniya Flor M.D. Assessment & Plan 75-year-old male admitted 05/28 with pneumonia/pulmonary hemorrhage. He was in acute respiratory failure that seems to have resolved overnight. 05/30 pulmonary consult and workup for hemoptysis, spoke to daughter/POA was going out of town tomorrow morning we will be needing to speak with son-in-law I met at bedside today. Still awaiting CT scan results to decide whether bronchoscopy will be indicated thank you Dr. Cardoza for seeing/consulting on patient #Hemoptysis-clinically the patient looks well but I saw the frankly bloody expectorant that the patient had been bringing up and became alarmed and ordered a CT scan and showed it to the telephone station repairer Dr. Bartlett who agreed that this was alarming the patient needed further workup. Formal pulmonary consult was placed, CT angiogram is pending along with Dopplers of lower extremities. Differential includes chronic clot that caused infarction and bleeding versus tumor. Patient had a large area of V/Q mismatch when he was last year and started on warfarin. CT angiogram was not obtained because of JG creatinine of 4.0. He has a strong family history for cancer particularly lung cancer and multiple risk factors including tobacco abuse. # Pulmonary Hemorrhage/Pneumonia -Holding Coumadin from admit and may discontinue it - DVT/ +/-PE (int prob v/q) 01/18/16 -D/W radiology. The RLL infiltrate looks like Blood to me but the Procalcitonin is slightly elevated -Continue on Levaquin IV 05/28- -The blood and saliva would appear to be a pulmonary source. #Acute blood loss anemia -Following H&H at least daily -Corrected supratherapeutic INR vitamin K 05/29 -INR 1.39 05/30 # COPD Exacerbation/Pneumonia - IV Solumedrol/levaquin 05/28- -Continue Oxygen by PR patient's on 2 L which is pretty much baseline 05/30 # HTN/CHF/Valvular Heart Disease and Cardiomyopathy -Continue his usual Cardiac medicines of losartan, metoprolol, Lasix. -Cautious IV fluid hydration overnight. -The BNP is 847. Patient does not seem clinically to be in overt heart failure # JG/Chronic Kidney Disease 3 -IVF to be given cautiously -Creatinine was 1.64 05/29 -CR 1.27 05/30 much closer to baseline #Thrombocytopenia-baseline platelet seemed to be around 90,000 historically #Supratherapeutic INR - -In the setting of warfarin/Levaquin I will give vitamin K 2.5 mg by mouth 05/29 -Corrected 1.39 05/30 #DVT/PE 02/01-patient is coming up on 6 months of therapy with there are ongoing issues risk of warfarin outweighs benefit at this point in time and will likely be discontinued VTE Prophylaxis: Theraputic Anticoag with Warfarin VTE Mechanical Devices: Intermittant Pneumatic CD Resuscitation Status: CPR: Attempt Resuscitation Mak Powell MD May 30, 2016 07:26
--- NOTE | 2016-05-30 16:01 | DRSVH ---
PROCEDURE: US VENOUS LEG DUPLEX BILATERAL INDICATIONS: Hx of DVT TECHNIQUE: Real-time imaging, as well as color and pulse Doppler interrogation, were performed of the deep veins of both legs from the inguinal ligament to the popliteal fossa. COMPARISON: None. FINDINGS: The deep veins are normally compressible, and free of intraluminal thrombus. Color and pu lse Doppler demonstrate normal phasic intravascular flow. There is normal augmentation response to d istal compression maneuver. IMPRESSION: No deep venous thrombosis identified within either the left or right lower extremities. Dictated by: Sudhakar DAVIS Interpreted: Maki Mayer MD on 05/30/2016 at 16:01 Transcribed by: IMTIAZ on 05/30/2016 at 16:01 Approved by: Maki Mayer M.D. on 06/01/2016 at 21:56
--- NOTE | 2016-05-30 16:05 | NUR ---
Pt off floor for CT scan via WC.
--- NOTE | 2016-05-30 16:28 | DRSVH ---
[facility] [address] [place] [address] Echocardiogram Report Name: Enriqueta CERVANTES BStudy Date: 05/30/2016 Height: 68 in Hospital Exam Location: [facility] Weight: 171 lb Gender: Male BSA: 1.9 m2 : 1940 Age: 75 yrs BP: 127/73 mmHg Reason For Study: PNEUMONIA Ordering Physician: HOSPITALIST SVHPerformed By: Bart Waite Referring Physician: TONY Interpretation Summary Left ventricular systolic function is moderately reduced with the ejection fraction estimated to be 40-45% but has significantly improved compared to the prior exam. There is mild to moderate global hypokinesis that is significantly improved compared to the previous study but remains worse in the distal anteroseptum, apex, and periapical sgemtns which are essentially akinetic and unchanged from the previous study. Assessment of diastolic parameters indicates a relaxation abnormality of the left ventricle, consistent with normal filling pressures, and is unchanged compared to the previous study. The right ventricle is normal in size and function and has markedly improved compared to the previous study. The right ventricular systolic pressure is estimated at 39 mmHg assuming a right atrial pressure of 3 mm Hg, and is likely significantly lower compared to the previous study. The left atrium is mildly dilated and has mildly increased in size since the prior echo exam. Right atrial size is normal and has significantly decreased in size. There is moderate mitral regurgitation that is unchanged compared to the previous study, and mild to moderate tricuspid regurgitation that has significantly improved compared to the previous study. The ascending aorta is at the upper limits of normal in size and unchanged compared to the previous study. There is no pleural effusion seen, suggesting resolution of the previously seen effusions on the previous study. Procedure: A two-dimensional transthoracic echocardiogram with color flow and Doppler was performed. The study quality was technically difficult. Comparison is made with the echocardiogram of 01/17/16. The patient was in normal sinus rhythm during the exam. Left Ventricle: The left ventricle is normal in size. There is normal left ventricular wall thickness. There is no thrombus. Left ventricular systolic function is moderately reduced. The ejection fraction is estimated to be 40- 45%. Compared to the prior exam, left ventricular function is significantly improved. There is mild to moderate global hypokinesis of the left ventricle. This is significantly improved compared to the previous study. This is worse in the distal anteroseptum, apex, and periapical sgemtns which are essentially akinetic, unchanged from the previous study. Assessment of diastolic parameters indicates a relaxation abnormality of the left ventricle, consistent with normal filling pressures. This is unchanged compared to the previous study. Right Ventricle: The right ventricle is normal in size and function. This is markedly improved compared to the previous study. Atria: The left atrium is mildly dilated. The left atrium has mildly increased in size since the prior echo exam. Right atrial size is normal. The right atrium has significantly decreased in size since the prior echo exam. The interatrial septum is intact with no evidence for an atrial septal defect. Mitral Valve: There is mild mitral annular calcification. There is moderate mitral regurgitation. This is unchanged compared to the previous study. Aortic Valve: The aortic valve is not well visualized. The aortic valve is grossly normal. The aortic valve opens well. There is trace aortic regurgitation. Tricuspid Valve: The tricuspid valve is normal in structure and function. There is mild to moderate tricuspid regurgitation. The right ventricular systolic pressure is estimated at 39 mmHg assuming a right atrial pressure of 3 mm Hg. This is significantly improved compared to the previous study. Pulmonic Valve: The pulmonic valve is not well visualized. Great Vessels: The aortic root is normal size. The ascending aorta is at the upper limits of normal in size. This is unchanged compared to the previous study. The pulmonary artery is normal size. The IVC is of normal diameter and collapses greater than 50% with a sniff. This suggests a low right atrial pressure of 3 mm Hg. Pericardium/ Pleura There is no pericardial effusion. There is no pleural effusion. This is resolution of the previously seen effusions compared to the previous study. MMode/2D Measurements & Calculations LVIDd: 5.2 cm LA dimension: 4.3 cm RA long axis: 4.5 cm Ao root diam LVIDs: 3.9 cm FS: 26.2 % LA A2 area: 20.4 cm RA area: 15.8 cm Aortic Jxn EPSS: 0.83 cm LA A4 area: 23.4 cm RA vol: 47.1 ml IVSd: 0.88 cm LA length (vol): 5.4 cm RA : 24.6 ml/m2 asc Aorta LA vol: 75.2 ml Diam: 3.4 cm LA vol index IVC diam: 1.8 cm EDV(MOD-sp2) LV alejandro. diameter/BSA LV sys. diameter/BSA RVD1 (basal) : 108.6 ml (cm/m^2): 2.7 (cm/m^2): 2.0 : 3.3 cm RVD2 (mid) : 3.6 cm Doppler Measurements & Calculations Ao V2 max: 142.3 cm/secMV E max azar MV E/A: 0.56 TR max azar Ao max P.1 mmHg : 66.2 cm/sec Med Peak E' Azar : 301.2 cm/sec Ao mean P.9 mmHg MV A max azar TR max PG : 118.6 cm/sec E/E' med: 11.7 : 36.3 mmHg Lat Peak E' Azar PA V2 max : 90.9 cm/sec E/E' lat: 8.1 PA mean PG E/e' average PA Accel Time Pulm A Revs Dur : 0.10 sec MV A dur : 0.12 sec MV dec time: 0.23 sec Ao V2 mean MR PISA radius PA V2 mean : 106.7 cm/sec : 72.5 cm/sec Ao V2 VTI: 27.8 cm PA pr(Accel) : 25.8 mmHg Sierra Jacob [facility] A Dur: -0.03 msec Reading Physician:04:27 PM
--- NOTE | 2016-05-30 16:45 | DRSVH ---
PROCEDURE: CT ANGIO CHEST PULMONARY EMBOLISM ([id number]) INDICATIONS: Hemoptysis TECHNIQUE: After the administration of intravenous contrast, 2 mm thick sections acquired from the pulmonary api wong to the posterior costophrenic angles. 3-dimensional maximum intensity projection (MIP) coronal a nd sagittal reformats were then acquired through the thorax. For radiation dose reduction, the follo wing was used: automated exposure control, adjustment of mA and/or kV according to patient size. COMPARISON: None. FINDINGS: Image quality: Excellent. Pulmonary arteries: No filling defect within the pulmonary arteries to suggest acute pulmonary embolu s. The pulmonary arteries demonstrate normal size. Lungs and pleura: Bolus, paraseptal, and severe centrilobular emphysema is present bilaterally with an apical predominance. Superimposed, consolidative radiopacities are present throughout the right lo wer lobe. A 2.9 x 4.0 x 3.7 cm mass is present within the lateral aspect of the right lower lobe (ser ies 7, image 41 and series 8, image 27). No pleural effusion or pneumothorax. There is a spiculated 2 .4 x 1.5 cm mass at the left lung base (series 7, image 46). A 4 mm diameter spiculated mass is prese nt more inferiorly at the left lung base (series 7, image 49). There is a large bulla within the infe rior lingula. Mediastinum: Heart size is normal, without pericardial effusion. A subcarinal lymph node measures 1. 3 cm in diameter. Thoracic aorta is normal in caliber and enhancement. Scattered atheromatous calcifi cations are present within the aortic arch. Esophagus is normal in caliber, without hiatal hernia. Bones and chest wall: No suspicious bony lesions. Ribs and thoracic spine appear intact throughout. Thyroid gland is unremarkable. No axillary or supraclavicular adenopathy. Abdomen: A 3 mm diameter calculus is present within the gallbladder fundus. No bulbar wall thickenin g on this limited view. Visualized upper abdominal solid organs appear otherwise normal in the early arterial phase of enhancement. IMPRESSION: 1. Consolidative airspace opacity throughout the right lower lobe suspicious for aspiration/infection . Aspiration secondary to hemoptysis could also cause this appearance. 2. Discrete mass lesion within the lateral aspect of the right lower lobe. This finding is suspicious for a discrete neoplastic mass. Additionally, 2 spiculated lesions are present within the left lung base suspicious for neoplastic lesions. If clinically indicated, the right lower lobe mass may be ramón nable to CT-guided percutaneous biopsy. Of note, the patient is at increased risk for complication acosta ch as pneumothorax given the extensive emphysematous disease. 3. Solitary enlarged subcarinal lymph node. Differential considerations include reactive/infectious e tiologies and korin metastasis. 4. No acute pulmonary embolus. Dictated by: Taniya Flor M.D. on 05/30/2016 at 16:30 Approved by: Taniya Flor M.D. on 05/30/2016 at 16:44
[2016-05-30] MEDS ORDERED: levoFLOXacin Inj 500 MG in IV Premix 1 EACH IV SCH (17:00)
[2016-05-31] VITALS (10 sets, daily range): BP systolic 115–136; BP diastolic 56–74; PULSE 65–106; RESP 18–22; O2SAT 92–98
[2016-05-31] MEDS ORDERED: Lactated Ringer's 1,000 ML IV ONE ×2 (06:00)
[2016-05-31 06:41] LABS: BASOPHILS % (AUTO) 0.2 % (0-3); EOSINOPHILS % (AUTO) 5.4 % (0-5); MONOCYTES % (AUTO) 12.7 % (4-12); Mean Corpuscular Hemoglobin 30.1 pg (27.0-35.0); Mean Corpuscular Volume 93.2 fL (81-100); NEUTROPHILS % (AUTO) 59.9 % (40-74); Platelet Count 103 bil/L (150-400)
[2016-05-31 06:53] LABS: INR 1.12 ratio
[2016-05-31] MEDS: Albuterol-Ipratropium 3 mL Inhalation Solution NEB SCH ×4 (07:49→20:10)
[2016-05-31] MEDS: Senna-Docusate 8.6-50 mg Tablet PO SCH (08:30)
[2016-05-31] MEDS: FORMOTEROL FUMARATE INHALATION SCH ×2 (08:30→20:30)
[2016-05-31] MEDS: Pantoprazole 40 mg ER24 Tablet PO SCH (08:31)
[2016-05-31] MEDS: MeTOProlol XL 50 mg ER24 Tablet PO SCH ×2 (08:31→19:51)
[2016-05-31] MEDS: Fluticasone 100 mCg Inhaler INHALATION SCH ×2 (08:32→19:51)
[2016-05-31] MEDS: 0.9% Sodium Chloride 1,000 ML IV SCH (08:39)
--- NOTE | 2016-05-31 10:33 | ABG ---
DateTimeAnalyzed 10:29:00 -_ pH ____7.496 - 7.350 7.450 pCO2 ___32.6__ -mmHg 35.0 45.0 pO2 ___48.0__ -mmHg 69.0 116 HCO3- ___24.9__ -mmol/L 22.0 26.0 ABE ____2.2__ -mmol/L -2.0 2.0 tHb ____9.8__ -g/dL O2Hb ___86.0__ -% COHb ____2.1__ -% MetHb ____1.0__ -% sO2 ___88.7__ -% FIO2 ___28.0__ -% Drawn By [facility] - Date/Time Notified____ 10:32:00 -_ Oxygen Device 1 __CANNULA - Notified By [facility] - Notified Whom [place], Galindo DO -___ B 754 -mmHg tO2 ___.9__ -Vol% Rasta test _Positive -
--- NOTE | 2016-05-31 10:48 | PCM.PNMED ---
Subjective Date of Service May 31, 2016 Subjective Pulmonology Consult: Attending physician Dr. Fabio Mcneil. Requesting Physician Dr. Powell. Reason for Consult Hemoptysis Mr Hein is a 75 year old male with a past medical history of COPD, CHF with EF of ~23% and MR, DVT, Pulmonary hypertension and renal insufficiency presented to [facility] ED secondary to hemoptysis x 2 days. Pathology consult requested secondary to hemoptysis. Differential includes PE, barotrauma, underlying malignancy. Overnight: Patient had mostly uneventful night. SPO2 remained high 80s low 90s then will drop with activity. Patient able to ambulate to bathroom independently. Reports no chest pain, shortness of breath at rest or headache. Overall is in good spirits and is aware of care plan for the day. Exam Vital Signs Vital Sign - Last Date Time Temp Pulse Resp B/P Pulse Ox O2 Delivery O2 Flow Rate FiO2 05/31/16 10:33 106 05/31/16 09:23 36.9 20 136/63 95 Nasal Cannula 2.00 Intake and Output 05/30/16 05/30/16 05/31/16 Cumulative From/Thru 15:00 23:00 07:00 05/28/16 14:05 - 05/31/16 06:40 Intake Total 2033 ml 500 ml 8123 ml Output Total 750 ml 1050 ml 4375 ml Balance 1283 ml -550 ml 3748 ml Intake Oral 704 ml 500 ml 3478 ml IV Total 1329 ml 4645 ml Output Urine Total 750 ml 1050 ml 4375 ml # Bowel Movements 0 0 1 Exam General: Sitting up in bed in no acute distress, appropriately interactive reactive. Good spirits HEENT: Normocephalic, atraumatic. External ears without defect. Pupils equal, round, and reactive to light and accommodation. Anicteric sclerae, moist conjunctivae, and no lid lag. Oropharynx free of erythema and cobble stoning with moist mucosa. Edentulous. Neck: Jugular venous distention present, No bruits. Cardiovascular: Regular rate and rhythm with no murmurs, rubs, or gallops appreciated. Pulmonary: Right lower lobe crackles, accessory neck muscle usage during inspiration. Bronchial breath sounds heard in the bilateral upper lung andrews. Abdomen: Bowel tones present. Soft, nontender, nondistended. Extremities: Finger clubbing, no cyanosis. Lower extremity pretibial edema. Left index finger missing after second knuckle. Neurological: Cranial nerves grossly intact. Psychiatric: Normal mood and affect. Alert and oriented to person, place, and time. IVs and Medications Medications Reviewed: Medications were reviewed in detail Lab and Diagnostics Result Diagram: 05/31/16 0615 05/31/1615 X-Rays, CTs and MRIs X-RAY CHEST ONE VIEW, PORTABLE 05/28/2016 IMPRESSION: Right mid and lower lung patchy radiopacities suspicious for aspiration/infection superimposed on severe centrilobular emphysema. Short interval followup is recommended to ensure resolution of this finding and exclude underlying pulmonary pathology. X-RAY CHEST, TWO VIEWS 05/30/2016 IMPRESSION: 1. Mid right and lower lung diffuse interstitial opacities redemonstrated not significantly changed which may be related to aspiration/infection but pulmonary hemorrhage cannot be excluded. If indicated chest CT scan could be performed for further characterization. 2. Emphysematous changes redemonstrated. CT ANGIO CHEST PULMONARY EMBOLISM 05/30/2016 IMPRESSION: 1. Consolidative airspace opacity throughout the right lower lobe suspicious for aspiration/infection. Aspiration secondary to hemoptysis could also cause this appearance. 2. Discrete mass lesion within the lateral aspect of the right lower lobe. This finding is suspicious for a discrete neoplastic mass. Additionally, 2 spiculated lesions are present within the left lung base suspicious for neoplastic lesions. If clinically indicated, the right lower lobe mass may be amenable to CT-guided percutaneous biopsy. Of note, the patient is at increased risk for complication such as pneumothorax given the extensive emphysematous disease. 3. Solitary enlarged subcarinal lymph node. Differential considerations include reactive/infectious etiologies and korin metastasis. 4. No acute pulmonary embolus. US VENOUS LEG DUPLEX BILATERAL 05/30/2016 IMPRESSION: No deep venous thrombosis identified within either the left or right lower extremities. Cardiac Echo Impressions . Echocardiogram Report: Interpretation Summary Left ventricular systolic function is moderately reduced with the ejection fraction estimated to be 40-45% but has significantly improved compared to the prior exam. There is mild to moderate global hypokinesis that is significantly improved compared to the previous study but remains worse in the distal anteroseptum, apex, and periapical sgemtns which are essentially akinetic and unchanged from the previous study. Assessment of diastolic parameters indicates a relaxation abnormality of the left ventricle, consistent with normal filling pressures, and is unchanged compared to the previous study. The right ventricle is normal in size and function and has markedly improved compared to the previous study. The right ventricular systolic pressure is estimated at 39 mmHg assuming a right atrial pressure of 3 mm Hg, and is likely significantly lower compared to the previous study. The left atrium is mildly dilated and has mildly increased in size since the prior echo exam. Right atrial size is normal and has significantly decreased in size. There is moderate mitral regurgitation that is unchanged compared to the previous study, and mild to moderate tricuspid regurgitation that has significantly improved compared to the previous study. The ascending aorta is at the upper limits of normal in size and unchanged compared to the previous study. There is no pleural effusion seen, suggesting resolution of the previously seen effusions on the previous study. Assessment & Plan 75 male with PMH of COPD, CHF with EF of ~23% and MR, DVT, Pulmonary hypertension and renal insufficiency. 1. Hemoptysis. Patient had been coughing up blood 2 days prior to hospital admission and continues to have hemoptysis during hospital admission. Significant past medical history of DVTs and possible PE secondary to VQ mismatch during last hospital admission. There is a concern for recurrent PE, though it is also likely that current hemoptysis is the result of trauma secondary to recurrent hacking cough with supratherapeutic INR on admission as well as the possibility of an underlying neoplasm. - CT chest showed mass lesion lateral aspect of right lower lobe. Suspicious for neoplastic mass. Also showed 2 spiculated lesions in the left lung base suspicious for neoplastic lesions. - Doppler lower extremities negative - Continue to hold warfarin - Based on location of lesion found on CT needle biopsy scheduled for today. Bronchoscopy canceled. 2. Possible pneumonia versus pulmonary hemorrhage. - CXR showed RLL infiltrate pulmonary hemorrhage versus aspiration. - Pro calcitonin mildly elevated 0.12 from 0.1 - Current antibiotics levofloxacin - Hemoglobin 11.6 on admit currently 9.6 - INR 1.39 from 4.1. 3 COPD. - Continue oxygen via nasal cannula - Continue Flovent, DuoNeb nebs 4. CHF. Echo done 01/06/2016 showed EF 23% with mitral and tricuspid regurgitation. Physical exam findings do show lower extremity edema - Repeat echo showed EF of 43%. [id number] global hypokinesis also improved to previous study. Moderate mitral regurgitation unchanged from previous - Continue home metoprolol, losartan - Lasix 40 mg daily Chronic Problems Hypertension, CKD, thrombocytopenia to be managed by primary team VTE Prophylaxis: Theraputic Anticoag with Warfarin VTE Mechanical Devices: Intermittant Pneumatic CD Resuscitation Status: CPR: Attempt Resuscitation Attending Statement The patient was seen and examined together with Dr. Merino on 05/31/2016 and I agree with the history, exam and plan as outlined in the note above. ROSALINDA MERINO DO May 31, 2016 10:48 Fabio Mcneil MD Jun 11, 2016 10:34
[2016-05-31] MEDS: predniSONE 20 mg Tablet PO SCH (12:15)
--- NOTE | 2016-05-31 12:21 | PCM.PNMED ---
Subjective Date of Service May 31, 2016 Subjective Patient states that his sputum is decreasing but still bloody. No chest pain, breathing about stable baseline, no nausea or vomiting Exam Vital Signs Vital Sign - Last Date Time Temp Pulse Resp B/P Pulse Ox O2 Delivery O2 Flow Rate FiO2 05/31/16 05:49 36.6 82 18 127/70 98 Nasal Cannula 2.00 Intake and Output 05/30/16 05/30/16 05/31/16 Cumulative From/Thru 15:00 23:00 07:00 05/28/16 14:05 - 05/31/16 06:40 Intake Total 2033 ml 500 ml 8123 ml Output Total 750 ml 1050 ml 4375 ml Balance 1283 ml -550 ml 3748 ml Intake Oral 704 ml 500 ml 3478 ml IV Total 1329 ml 4645 ml Output Urine Total 750 ml 1050 ml 4375 ml # Bowel Movements 0 0 1 Exam Gen- He is alert, oriented 3, Thin male sitting at bedside no apparent distress eyes- Pupils are equal Extraocular muscles are intact. Sclerae are pink and nonicteric. Neck-trach midline Heart is regular rate and rhythm without murmur. Lungs: Moving air well, wheezes expiratory right lung base Abdomen is soft, nontender, no organomegaly or mass, bowel sounds are heard musc- have no ankle edema, moving 4 Skin has no rash or jaundice Neuro exam. Cranial nerves II through XII intact, gross neuro exam nonfocal Psych- patient is pleasant and appropriate Lab and Diagnostics Result Diagram: 05/31/1615 05/31/1615 X-Rays, CTs and MRIs CT chest concurrently reviewed by Andre 05/31 Severe emphysema with blebs, right-sided peripheral mass 1. Consolidative airspace opacity throughout the right lower lobe suspicious for aspiration/infection. Aspiration secondary to hemoptysis could also cause this appearance. 2. Discrete mass lesion within the lateral aspect of the right lower lobe. This finding is suspicious for a discrete neoplastic mass. Additionally, 2 spiculated lesions are present within the left lung base suspicious for neoplastic lesions. If clinically indicated, the right lower lobe mass may be amenable to CT-guided percutaneous biopsy. Of note, the patient is at increased risk for complication such as pneumothorax given the extensive emphysematous disease. 3. Solitary enlarged subcarinal lymph node. Differential considerations include reactive/infectious etiologies and korin metastasis. 4. No acute pulmonary embolus. Dictated by: Taniya Flor M.D. on 05/30/2016 at 16:30 Doppler lower extremities - for DVT 05/30 Assessment & Plan 75-year-old male admitted 05/28 with pneumonia/pulmonary hemorrhage. He was in acute respiratory failure that seems to have resolved overnight. 05/30 pulmonary consult and workup for hemoptysis, spoke to daughter/POA was going out of town tomorrow morning we will be needing to speak with son-in-law I met at bedside today. 05/31 patient medically stable awaiting biopsy plan #Right side peripheral lung mass-evaluating best way to obtain tissue sample, appears to me that CT-guided needle biopsy will be most expedient approach but option of that versus bronchoscopy per pulmonary Dr. Cardoza thank you very much for your consultation. #Hemoptysis-diminishing # Pulmonary Hemorrhage/Pneumonia- seems to have stabilized/stopped with reversal of warfarin/anticoagulation -d/c Coumadin only resumed per pulmonary/Dhruv recommendation if needed - DVT/ +/-PE (int prob v/q) 01/18/16, Doppler/CT angiogram negative for clot/PE 05/30 -Continue on Levaquin IV 05/28- -CT scan reveals mass which is likely source of hemorrhage #Acute blood loss anemia Hg 9.2 05/31 approximately stable -Corrected supratherapeutic INR vitamin K 05/29 -INR 1.39 05/30, 1.12 05/31 # COPD Exacerbation/Pneumonia - IV levaquin 05/28-05/31 ,prednisone 40 mg daily -06/05, Levaquin 500mg q48 -06/03 -Continue Oxygen by [place] patient's on 2 L which is pretty much baseline 05/30 # HTN/CHF/Valvular Heart Disease and Cardiomyopathy -Continue his usual Cardiac medicines of losartan, metoprolol, Lasix. -Cautious IV fluid hydration overnight. -The BNP is 847. Patient does not seem clinically to be in overt heart failure , would use IV fluids cautiously # JG/Chronic Kidney Disease 3-JG resolved, IV fluids discontinued 05/31 -Creatinine was 1.64 05/29 -CR 1.27 05/30 much closer to baseline #Thrombocytopenia-baseline platelet seemed to be around 90,000 historically #Supratherapeutic INR -resolved 05/30, off anticoagulation 05/28 -In the setting of warfarin/Levaquin I will give vitamin K 2.5 mg by mouth 05/29 -INR 1.39 05/30, 1.12 05/31 #DVT/PE 02/01-patient is coming up on 6 months of therapy with there are ongoing issues risk of warfarin outweighs benefit at this point in time and will likely be discontinued VTE Prophylaxis: Theraputic Anticoag with Warfarin VTE Mechanical Devices: Intermittant Pneumatic CD Resuscitation Status: CPR: Attempt Resuscitation Mak Powell MD May 31, 2016 07:46
--- NOTE | 2016-05-31 18:35 | NUR ---
Biopsy: Patient is going to have lung biopsy tomorrow. He was given Dinner and will be NPO AFTER MIDNIGHT FOR THE PROCEDURE TOMORROW.
[2016-06-01] VITALS (12 sets, daily range): BP systolic 121–180; BP diastolic 65–81; PULSE 83–105; RESP 18–20; O2SAT 90–98
--- NOTE | 2016-06-01 03:54 | NUR ---
Biopsy Pt is NPO after midnight, sleeping well. Will continue to monitor.
[2016-06-01] MEDS: FORMOTEROL FUMARATE INHALATION SCH ×2 (07:39→20:44)
[2016-06-01] MEDS: Albuterol-Ipratropium 3 mL Inhalation Solution NEB SCH ×4 (07:39→20:43)
[2016-06-01] MEDS: Senna-Docusate 8.6-50 mg Tablet PO SCH (08:30)
[2016-06-01] MEDS: Fluticasone 100 mCg Inhaler INHALATION SCH ×2 (08:57→21:03)
[2016-06-01] MEDS: MeTOProlol XL 50 mg ER24 Tablet PO SCH ×2 (08:59→21:22)
[2016-06-01] MEDS: levoFLOXacin 500 mg Tablet PO SCH (08:59)
[2016-06-01] MEDS: Pantoprazole 40 mg ER24 Tablet PO SCH (08:59)
[2016-06-01 09:45] LABS: BASOPHILS % (AUTO) 0.2 % (0-3); EOSINOPHILS % (AUTO) 4.8 % (0-5); MONOCYTES % (AUTO) 11.6 % (4-12); Mean Corpuscular Hemoglobin 30.4 pg (27.0-35.0); Mean Corpuscular Volume 92.7 fL (81-100); NEUTROPHILS % (AUTO) 63.5 % (40-74); Platelet Count 106 bil/L (150-400)
[2016-06-01 10:03] LABS: INR 1.01 ratio
[2016-06-01 10:08] LABS: Magnesium 2.2 mg/dL (1.6-2.6)
--- NOTE | 2016-06-01 10:10 | NUR ---
EFRAIN signed ST[employer]PER spoke with pt's daughter on the phone, verbal permission to sign. MIGUEL Recinos
--- NOTE | 2016-06-01 10:51 | NUR ---
EFRAIN: Gave patient message and he requested we call his daughter Pooja who is the POA.
--- NOTE | 2016-06-01 13:27 | NUR ---
Social Work: Continued d/c planning Data: Pt is on day 4 of hospitalization. EMR reviewed. PLANER OPERATOR called pt's daughter to discuss d/c plan. Pt's daughter states that they want HH set up for pt before d/c. PLANER OPERATOR states that HH RN would be appropriate but that the most recent PT note states that they recommend home with no PT needs. PLANER OPERATOR spoke with PT who states they have not worked with pt since 05/29 and that they have closed pt. PLANER OPERATOR will discuss with MD regarding if another PT evaluation is needed. PLANER OPERATOR will continue to follow. Assessment: Pt who is independent at baseline. Plan: Pt will d/c home via POV possibly with HH, [facility] preferred if needed. PLANER OPERATOR will continue to follow. MIGUEL Recinos
[2016-06-01] MEDS: predniSONE 20 mg Tablet PO SCH (13:42)
--- NOTE | 2016-06-01 18:09 | NUR ---
Lung Biopsy: Patients lung biopsy is scheduled for 0830 tomorrow morning. Patient will be NPO after midnight for the procedure. Patient has had no c/o lung pain today. He has been on 2 liters of 02 ans sating in the 90s. He does become SOB with activity.
--- NOTE | 2016-06-01 22:50 | NUR ---
Resp Pt has no complaint of shortness of breath. His cough has been minimal. Aware that he is NPO after MN for lung bx in AM Will cont to monitor
--- NOTE | 2016-06-01 23:09 | PCM.PNMED ---
Subjective Date of Service Jun 01, 2016 Subjective The patient is sitting up in a bedside chair with no new complaints. He appears to be a little bit apprehensive about what his diagnosis might be. Otherwise he appears comfortable. Exam Vital Signs Vital Sign - Last Date Time Temp Pulse Resp B/P Pulse Ox O2 Delivery O2 Flow Rate FiO2 06/01/16 20:51 36.2 83 20 148/70 98 Nasal Cannula 2.00 Intake and Output 05/31/16 05/31/16 06/01/16 Cumulative From/Thru 15:00 23:00 07:00 05/28/16 14:05 - 06/01/16 06:22 Intake Total 1385 ml 300 ml 9808 ml Output Total 2300 ml 375 ml 7050 ml Balance -915 ml -75 ml 2758 ml Intake Oral 450 ml 300 ml 4228 ml IV Total 935 ml 5580 ml Output Urine Total 2300 ml 375 ml 7050 ml # Voids 5 5 # Bowel Movements 1 0 2 Exam General: Patient is in no apparent distress sitting up in a bedside chair. HEENT: Head is atraumatic and normocephalic. Eyes: Pupils are equally round and reactive to light and accommodation. Extraocular muscles are intact. Sclera are white, anicteric. Subconjunctival mucosa is pink. Ears and nose are unremarkable. Oropharynx: There is no mucosal lesions, there is no thrush, there is no pharyngitis. Neck: Is supple, there are no nodes, or masses or tenderness. Chest: Is clear to auscultation and percussion. There are no rales, rhonchi, wheezes or rubs. Heart: Rate, rhythm is regular. There is no murmur, rub or gallop. Abdomen: Good bowel sounds are present. Abdomen is soft, nontender, no organomegaly or masses were appreciated. Extremities: Are symmetrical and well perfused. There is no edema, there is no cellulitis, no rash. Neurologic: There are no focal neurological deficits. Cranial nerves II through XII are intact. There are no sensory or motor deficits. Psychiatric: Patients mood is calm and shows no sign of agitation. Genital: Deferred Rectal: Deferred Lab and Diagnostics Result Diagram: 06/01/1615 06/01/16 0915 Microbiology Name: Enriqueta CERVANTES Age/Sex: 75/M Attend Dr: Wisam Burns MD Acct: [id number] Unit: [id number] Status: ADM IN Location: [facility] [place] 3016-1 Re05/28/16 Disch: Specimen: [id number] Collected: 05/28/16 Status: RES Req#: [id number] Received: 05/28/16 Source: BLOOD Sp Desc : AA Alecia Dr: Danuta Reed MD Ordered: NEO Comments: Collected by Nurse/Unit? Y/N N Procedure Result Verified Site Microbiology NADER CULTURE BLOOD Preliminary 05/30/16 No growth at 2 days; culture examined daily no report between 2-5 days if negative. X-Rays, CTs and MRIs CT chest concurrently reviewed by Andre 05/31 Severe emphysema with blebs, right-sided peripheral mass 1. Consolidative airspace opacity throughout the right lower lobe suspicious for aspiration/infection. Aspiration secondary to hemoptysis could also cause this appearance. 2. Discrete mass lesion within the lateral aspect of the right lower lobe. This finding is suspicious for a discrete neoplastic mass. Additionally, 2 spiculated lesions are present within the left lung base suspicious for neoplastic lesions. If clinically indicated, the right lower lobe mass may be amenable to CT-guided percutaneous biopsy. Of note, the patient is at increased risk for complication such as pneumothorax given the extensive emphysematous disease. 3. Solitary enlarged subcarinal lymph node. Differential considerations include reactive/infectious etiologies and korin metastasis. 4. No acute pulmonary embolus. Dictated by: Taniya Flor M.D. on 05/30/2016 at 16:30 PROCEDURE: US VENOUS LEG DUPLEX BILATERAL INDICATIONS: Hx of DVT TECHNIQUE: Real-time imaging, as well as color and pulse Doppler interrogation, were performed of the deep veins of both legs from the inguinal ligament to the popliteal fossa. COMPARISON: None. FINDINGS: The deep veins are normally compressible, and free of intraluminal thrombus. Color and pulse Doppler demonstrate normal phasic intravascular flow. There is normal augmentation response to distal compression maneuver. IMPRESSION: No deep venous thrombosis identified within either the left or right lower extremities. Dictated by: Sudhakar DAVIS Interpreted: Maki Mayer MD on 05/30/2016 at 16: 01 Transcribed by: IMTIAZ on 05/30/2016 at 16:01 Approved by: Maki Mayer M.D. on 06/01/2016 at 21:56 Cardiac Echo Impressions . Echocardiogram Report: Interpretation Summary Left ventricular systolic function is moderately reduced with the ejection fraction estimated to be 40-45% but has significantly improved compared to the prior exam. There is mild to moderate global hypokinesis that is significantly improved compared to the previous study but remains worse in the distal anteroseptum, apex, and periapical sgemtns which are essentially akinetic and unchanged from the previous study. Assessment of diastolic parameters indicates a relaxation abnormality of the left ventricle, consistent with normal filling pressures, and is unchanged compared to the previous study. The right ventricle is normal in size and function and has markedly improved compared to the previous study. The right ventricular systolic pressure is estimated at 39 mmHg assuming a right atrial pressure of 3 mm Hg, and is likely significantly lower compared to the previous study. The left atrium is mildly dilated and has mildly increased in size since the prior echo exam. Right atrial size is normal and has significantly decreased in size. There is moderate mitral regurgitation that is unchanged compared to the previous study, and mild to moderate tricuspid regurgitation that has significantly improved compared to the previous study. The ascending aorta is at the upper limits of normal in size and unchanged compared to the previous study. There is no pleural effusion seen, suggesting resolution of the previously seen effusions on the previous study. Assessment & Plan 75-year-old male admitted 05/28 with pneumonia/pulmonary hemorrhage. He was in acute respiratory failure that seems to have resolved overnight. # Right side peripheral lung mass-evaluating best way to obtain tissue sample, a CT-guided needle biopsy will be performed in the morning #Hemoptysis-diminishing # Pulmonary Hemorrhage/Pneumonia- seems to have stabilized/stopped with reversal of warfarin/anticoagulation - Coumadin has been discontinued and will only resumed per pulmonary/Dhruv recommendation if needed - DVT/ +/-PE (int prob v/q) 01/18/16, Doppler/CT angiogram negative for clot/PE 05/30 - Continue on Levaquin IV started on 05/28/16 - CT scan reveals mass which is likely source of hemorrhage # Acute blood loss anemia Hg 9.2 05/31 approximately stable - Corrected supratherapeutic INR with vitamin K given on 05/29/16 - INR 1.39 05/30, 1.12 05/31 # COPD Exacerbation/Pneumonia - IV levaquin was given from 05/28-05/31/16, then 06/05/16, Levaquin was changed to 500mg by mouth q48 -06/03 - We will continue prednisone 40 mg daily -06/05. - Continue Oxygen by [place] patient's on 2 L which is pretty much baseline 05/30/16 # HTN/CHF/Valvular Heart Disease and Cardiomyopathy - Continue his usual Cardiac medicines of losartan, metoprolol, Lasix. - Cautious IV fluid hydration was given - The BNP is 847. Patient does not seem clinically to be in overt heart failure , would use IV fluids cautiously # JG/Chronic Kidney Disease 3-JG resolved, IV fluids discontinued 05/31 -Creatinine was 1.64 05/29 -CR 1.27 05/30 much closer to baseline # Thrombocytopenia-baseline platelet seemed to be around 90,000 historically # Supratherapeutic INR -resolved 05/30/16, off anticoagulation 05/28/16 -In the setting of warfarin/Levaquin I will give vitamin K 2.5 mg by mouth 05/29. -INR 1.39 05/30, 1.12 05/31 # DVT/PE 02/01-patient is coming up on 6 months of therapy with there are ongoing issues risk of warfarin outweighs benefit at this point in time and will likely be discontinued Pain Evaluation: Adequate Pain Control (currently anticoagulation is being held due to plan for lung mass biopsy in a.m.) GI Prophylaxis: Proton Pump Inhibitor VTE Prophylaxis: Theraputic Anticoag with Warfarin VTE Mechanical Devices: Intermittant Pneumatic CD Resuscitation Status: CPR: Attempt Resuscitation Jose Cruz Carlson MD Jun 01, 2016 23:09
[2016-06-02] VITALS (11 sets, daily range): BP systolic 120–149; BP diastolic 51–80; PULSE 71–98; RESP 16–22; O2SAT 90–99
--- NOTE | 2016-06-02 00:56 | PROG NOTE ---
[address] [address] PROGRESS NOTE PATIENT: Enriqueta CEVRANTES : 1940 MR#: [id number] ADMIT: 05/28/2016 JOB ID: [id number] DATE: 06/01/2016 PROBLEM: 1. Lung mass. 2. Hemoptysis. SUBJECTIVE: Continues to cough up blood. However, he only coughed up blood this morning. Did fairly well last evening. It was about a tablespoon size plug of blood. Relatively dark. Breathing is about the same. Continues to have some mild difficulty, but overall stable. Ate fairly well last night. OBJECTIVE: Temperature 36.4, pulse 86-105, respiratory rate 18-20, blood pressure 130/68 to as high as 180/81, O2 sat on 2 liters of oxygen is 90% to 94%. General appearance: Chronically ill. Moving slowly. Remains jovial and gregarious. Chest: Fair breath sounds bilaterally. Diminished left base. Crackles at right base. Few crackles in the mid lung andrews bilaterally. Upper lung andrews are relatively clear. Heart tones normal. Abdomen is soft. Bowel tones present. Extremities: No pretibial edema. ASSESSMENT: 1. Hemoptysis. Remains unchanged. There was some confusion over whether he got Coumadin this morning, but it turns out he did not. Some type of clerical error. Confirmed with the pharmacist that he is not on any schedule for Coumadin. 2. Lung mass. Reschedule transthoracic needle aspiration biopsy. Will rediscuss with Radiology. PLAN: 1. Keep n.p.o. for possible transthoracic needle aspiration biopsy of the lung today. 2. Continue current regimen.
[2016-06-02 06:35] LABS: BASOPHILS % (AUTO) 0 % (0-3); EOSINOPHILS % (AUTO) 0.1 % (0-5); MONOCYTES % (AUTO) 8.4 % (4-12); Mean Corpuscular Hemoglobin 30.7 pg (27.0-35.0); Mean Corpuscular Volume 91.4 fL (81-100); NEUTROPHILS % (AUTO) 81.1 % (40-74); Platelet Count 119 bil/L (150-400)
[2016-06-02 06:50] LABS: Magnesium 2.2 mg/dL (1.6-2.6); Phosphorus 3.7 mg/dL (2.5-4.9)
[2016-06-02] MEDS: Albuterol-Ipratropium 3 mL Inhalation Solution NEB SCH ×3 (07:37→20:47)
[2016-06-02] MEDS: FORMOTEROL FUMARATE INHALATION SCH ×2 (07:38→20:48)
[2016-06-02] MEDS ORDERED: 0.9% Sodium Chloride 500 ML ONE (07:41)
[2016-06-02] MEDS ORDERED: Flumazenil 0.1 mg/mL 5 mL Inj IV ONE (07:47)
[2016-06-02] MEDS ORDERED: fentaNYL-PF 50 mCg/mL 2 mL Inj ONE (08:12)
[2016-06-02] MEDS: Fluticasone 100 mCg Inhaler INHALATION SCH ×2 (08:16→20:38)
[2016-06-02] MEDS: MeTOProlol XL 50 mg ER24 Tablet PO SCH ×2 (08:17→20:38)
[2016-06-02] MEDS: Pantoprazole 40 mg ER24 Tablet PO SCH (08:17)
[2016-06-02] MEDS: predniSONE 20 mg Tablet PO SCH (08:22)
[2016-06-02] MEDS: Senna-Docusate 8.6-50 mg Tablet PO SCH (08:24)
--- NOTE | 2016-06-02 09:24 | NUR ---
CT/JOSE Patient taken down to CT for lung biopsy at 0900. Denies SOB at rest, 2L NC, blood in sputum x1 this am. Patient will be recovered in JOSE before returning to [facility]. Santiagoefe held this am for procedure. Addendum: 06/02/16 at 1134 by IVAN CARRINGTON RN [facility] Patient returned to [facility] 1030 with chest tube, which upon arrival hooked up to low suction, some bubbling due to small air leak, suction line and dressing c/d/i were reinforced. Patient denies shortness of breath O2 sat 94% on 2L NC. Patient encourage not to get out of bed without calling, has been started on general diet, biopsy sent to lab, no hematosis at this time.
--- NOTE | 2016-06-02 10:27 | NUR ---
CT/Procedure Taken to CT about 0900. Baseline VS stable. Denied pain. Procedure commenced at 0910. Versed 1 mg and Fentanyl 50mcg IVP given. Pt. received pneumothorax per MD reading of CT. Chest tube placed and hooked to suction. Fluctuation and air leak present. Minimal pain during procedure, mostly from position. Relieved once procedure complete. Biopsies obtained. VS returned to baseline and pt. alert at end of procedure and MD stated JOSE not needed and VS already obtained sufficient for recovery since chest tube is in place. Transported to 301 at 1010 in no distress. VSS. Denies pain. Instructions given to pt. re: calling for help to get up and to inform us of increasing SOB. Verbalizes understanding. Report given to Otilio Atkinson RN from CT and bedside check done. Otilio further securing chest tube.
--- NOTE | 2016-06-02 11:20 | DRSVH ---
PROCEDURE: 1. CT-guided lung biopsy. 2. CT-guided chest tube placement. 3. Conscious sedation time 60 minutes. INDICATIONS: Emphysema. Right lung mass. TECHNIQUE: The indications, alternatives, benefits, risks, and possible complications of the procedure were comm unicated to the patient. Informed written consent from the patient was obtained and placed in the art. Continuous EKG and hemodynamic monitoring was started by trained personnel. For radiation dose reduction, the following was used: automated exposure control, adjustment of mA and/or kV according to patient size. The patient was brought to the CT suite and traffic officer spiral CT imaging was performed with localization g rid. The appropriate site for percutaneous access to the biopsy target was marked, was prepped and d raped sterilely, and was infused with local anaesthesia. Under CT guidance, a core biopsy trocar and needle set was advanced to the biopsy target. A pneumothorax was encountered prior to biopsy. Conseq uently, a 10 Gambian chest tube was placed within the right pleural space using Seldinger technique vi a an 18 gauge needle. The biopsy trocar was then advanced into the nodule. 4 core specimens were obta ined. The trocar and needle were then removed, and the patient was sent for post-procedure monitoring . COMPARISON: None. FINDINGS: Biopsy site: Right lower lobe nodule Needle: 20 gauge biopsy needle with introducer trocar. Number of passes: 4 Medications: 1% lidocaine for local anaesthesia. IV Fentanyl and Versed for conscious sedation for 60 minutes (see nursing record). Complications: None. IMPRESSION: 1. CT guided chest tube placement for treatment of pneumothorax encountered during lung biopsy. 2. Successful CT-guided biopsy of left lung base nodule. Dictated by: Young Matthew M.D. on 06/02/2016 at 11:14 Approved by: Young Matthew M.D. on 06/02/2016 at 11:18
--- NOTE | 2016-06-02 11:37 | NUR ---
Meds wasted Wasted Fentanyl 50mcg and Versed 1mg with Mary Santos RN. Returned Versed 2mg and Fentanyl 100mcg with Mary Santos RN.
--- NOTE | 2016-06-02 14:12 | NUR ---
CHEST TUBE P-Patient in need of lung biopsy. I-Patient taken to radiology for needle guided biopsy. E-Biopsy done unfortunately patient had pneumothorax and chest tube inserted. LABS - Hbg 9, Hct 26 NEURO- LOC X4, Very pleasant upbeat gentlemen CVS- SR tachy 100's PLUM- Chest tube intermittent suction, serosang drainage, 2L NC, O2 sat 54% GI- general diet good lunch, BM today. - Urinal SKIN-Diffuse bruising, fragile skin. PAIN-Denies IV-S/L PLAN- Monitor chest tube, breathing, await biopsy results, stabilize. Addendum: 06/02/16 at 1843 by IVAN CARRINGTON RN CHEST TUBE Total 55ml sero-sangeous out on low suction from right chest tube last 8 hrs. Insertion site c/d/i, Patient c/o mild pain, tylenol given.
--- NOTE | 2016-06-02 19:34 | PCM.PNMED ---
Subjective Date of Service Jun 02, 2016 Subjective The patient is in surprisingly good spirits after his lung biopsy. He stated that the new chest tube was not bothering him at all right after the procedure. However, several hours later he was complaining of it causing him some irritation and his nurse Otilio asked for some Tylenol to the patient some relief for this irritation. Exam Vital Signs Vital Sign - Last Date Time Temp Pulse Resp B/P Pulse Ox O2 Delivery O2 Flow Rate FiO2 06/02/16 16:55 36.6 82 18 135/51 Nasal Cannula 2.00 06/02/16 13:45 95 Intake and Output 06/01/16 06/01/16 06/02/16 Cumulative From/Thru 14:59 22:59 06:59 05/28/16 14:05 - 06/02/16 04:18 Intake Total 700 ml 300 ml 47363 ml Output Total 400 ml 820 ml 8270 ml Balance 300 ml -520 ml 2538 ml Intake Oral 700 ml 300 ml 5228 ml IV Total 5580 ml Output Urine Total 400 ml 820 ml 8270 ml # Voids 5 10 # Bowel Movements 2 Exam General: Patient is in no apparent distress sitting up in a bedside chair. HEENT: Head is atraumatic and normocephalic. Eyes: Pupils are equally round and reactive to light and accommodation. Extraocular muscles are intact. Sclera are white, anicteric. Subconjunctival mucosa is pink. Ears and nose are unremarkable. Oropharynx: There is no mucosal lesions, there is no thrush, there is no pharyngitis. Neck: Is supple, there are no nodes, or masses or tenderness. Chest: There is decreased breath sounds on the right and there is a chest tube in right chest. There are scattered crackles throughout the right lung base up to two thirds of the posterior right lung field on auscultation. Heart: Rate, rhythm is regular. There is no new murmur, rub or gallop. Abdomen: Good bowel sounds are present. Abdomen is soft, nontender, no organomegaly or masses were appreciated. Extremities: Are symmetrical and well perfused. There is no edema, there is no cellulitis, no rash. Neurologic: There are no focal neurological deficits. Cranial nerves II through XII are intact. There are no sensory or motor deficits. Psychiatric: Patients mood is calm and shows no sign of agitation. Genital: Deferred Rectal: Deferred Lab and Diagnostics Result Diagram: 06/02/1660406/02/16604 Microbiology Name: Enriqueta CERVANTES Age/Sex: 75/M Attend Dr: Wisam Burns MD Acct: [id number] Unit: [id number] Status: ADM IN Location: [facility] 3016-1 Re05/28/16 Disch: Specimen: [id number] Collected: 05/28/16 Status: RES Req#: [id number] Received: 05/28/16 Source: BLOOD Sp Desc : AA Alecia Dr: Danuta Reed MD Ordered: Comments: Collected by Nurse/Unit? Y/N N Procedure Result Verified Site Microbiology NADER CULTURE BLOOD Preliminary 05/30/16-1525 No growth at 2 days; culture examined daily no report between 2-5 days if negative. X-Rays, CTs and MRIs CT chest concurrently reviewed by Andre 05/31 Severe emphysema with blebs, right-sided peripheral mass 1. Consolidative airspace opacity throughout the right lower lobe suspicious for aspiration/infection. Aspiration secondary to hemoptysis could also cause this appearance. 2. Discrete mass lesion within the lateral aspect of the right lower lobe. This finding is suspicious for a discrete neoplastic mass. Additionally, 2 spiculated lesions are present within the left lung base suspicious for neoplastic lesions. If clinically indicated, the right lower lobe mass may be amenable to CT-guided percutaneous biopsy. Of note, the patient is at increased risk for complication such as pneumothorax given the extensive emphysematous disease. 3. Solitary enlarged subcarinal lymph node. Differential considerations include reactive/infectious etiologies and korin metastasis. 4. No acute pulmonary embolus. Dictated by: Taniya Flor M.D. on 05/30/2016 at 16:30 PROCEDURE: US VENOUS LEG DUPLEX BILATERAL INDICATIONS: Hx of DVT TECHNIQUE: Real-time imaging, as well as color and pulse Doppler interrogation, were performed of the deep veins of both legs from the inguinal ligament to the popliteal fossa. COMPARISON: None. FINDINGS: The deep veins are normally compressible, and free of intraluminal thrombus. Color and pulse Doppler demonstrate normal phasic intravascular flow. There is normal augmentation response to distal compression maneuver. IMPRESSION: No deep venous thrombosis identified within either the left or right lower extremities. Dictated by: Sudhakar DAVIS Interpreted: Maki Mayer MD on 05/30/2016 at 16: 01 Transcribed by: IMTIAZ on 05/30/2016 at 16:01 Approved by: Maki Mayer M.D. on 06/01/2016 at 21:56 Cardiac Echo Impressions . Echocardiogram Report: Interpretation Summary Left ventricular systolic function is moderately reduced with the ejection fraction estimated to be 40-45% but has significantly improved compared to the prior exam. There is mild to moderate global hypokinesis that is significantly improved compared to the previous study but remains worse in the distal anteroseptum, apex, and periapical sgemtns which are essentially akinetic and unchanged from the previous study. Assessment of diastolic parameters indicates a relaxation abnormality of the left ventricle, consistent with normal filling pressures, and is unchanged compared to the previous study. The right ventricle is normal in size and function and has markedly improved compared to the previous study. The right ventricular systolic pressure is estimated at 39 mmHg assuming a right atrial pressure of 3 mm Hg, and is likely significantly lower compared to the previous study. The left atrium is mildly dilated and has mildly increased in size since the prior echo exam. Right atrial size is normal and has significantly decreased in size. There is moderate mitral regurgitation that is unchanged compared to the previous study, and mild to moderate tricuspid regurgitation that has significantly improved compared to the previous study. The ascending aorta is at the upper limits of normal in size and unchanged compared to the previous study. There is no pleural effusion seen, suggesting resolution of the previously seen effusions on the previous study. Assessment & Plan 75-year-old male admitted 05/28/16 with pneumonia/pulmonary hemorrhage. He was in acute respiratory failure that seems to have resolved overnight. # Right side peripheral lung mass-a CT-guided needle biopsy will be performed this morning - Patient developed a postprocedure pneumothorax and had a chest tube placed - We will await lung biopsy pathology report - Consider oncology consult # Hemoptysis-present on admission and persisting, however diminishing # Pulmonary Hemorrhage/Pneumonia- seems to have stabilized/stopped with reversal of warfarin/anticoagulation - Coumadin has been discontinued and will only resumed per pulmonary/Dhruv recommendation if needed - DVT/ +/-PE (int prob v/q) 01/18/16, Doppler/CT angiogram negative for clot/PE 05/30 - Continue on Levaquin IV started on 05/28/16 - CT scan reveals mass which is likely source of hemorrhage # Acute blood loss anemia Hg 9.2 05/31 approximately stable - Corrected supratherapeutic INR with vitamin K given on 05/29/16 - INR 1.39 05/30, 1.12 05/31 # COPD Exacerbation/Pneumonia - IV Levaquin was given from 05/28-05/31/16, then 06/05/16, Levaquin was changed to 500mg by mouth q48 -06/03 - We will continue prednisone 40 mg daily -06/05. - Continue Oxygen by KS patient's on 2 L which is pretty much baseline 05/30/16 # HTN/CHF/Valvular Heart Disease and Cardiomyopathy - Continue his usual Cardiac medicines of losartan, metoprolol, Lasix. - Cautious IV fluid hydration was given - The BNP is 847. Patient does not seem clinically to be in overt heart failure , would use IV fluids cautiously # JG/Chronic Kidney Disease 3-JG resolved, IV fluids discontinued 05/31 -Creatinine was 1.64 05/29 -CR 1.27 05/30 much closer to baseline # Thrombocytopenia-baseline platelet seemed to be around 90,000 historically # Supratherapeutic INR -resolved 05/30/16, off anticoagulation 05/28/16 -In the setting of warfarin/Levaquin I will give vitamin K 2.5 mg by mouth 05/29. -INR 1.39 05/30, 1.12 05/31 # DVT/PE 02/01-patient is coming up on 6 months of therapy with there are ongoing issues risk of warfarin outweighs benefit at this point in time and will likely be discontinued. Disposition: Patient will require several more days of hospitalization due to pneumothorax and chest tube placement. Pain Evaluation: Adequate Pain Control GI Prophylaxis: Proton Pump Inhibitor VTE Prophylaxis: Theraputic Anticoag with Warfarin VTE Mechanical Devices: Intermittant Pneumatic CD Resuscitation Status: CPR: Attempt Resuscitation Jose Cruz Carlson MD Jun 02, 2016 19:34
[2016-06-03] VITALS (12 sets, daily range): BP systolic 119–153; BP diastolic 55–74; PULSE 68–96; RESP 18–22; O2SAT 90–98
--- NOTE | 2016-06-03 05:41 | NUR ---
Respiration/Chest tube Pt mild SOB at rest, increase when get up to bedside. SPO2 96-97% on O2 2l per nc. Occasional nonproductive cough,no hemoptysis noted. Coarse lung sounds and fine crackles at right posterior LL, decreased lung sounds, left<right. Tele:[id number], HR increase to 100s with activities. Chest tube in place at right later chest,low continuous wall suction, a few air bubbles with cough or expiration at pm,no bubbles noted since MN. Dressing CDI, put out sero-sanguineus drainage 25ml/12hours, less than previous shift 55ml. Cough and deep breathing encouraged to improve lung expansion. No c/o of chest pain.
[2016-06-03 06:40] LABS: BASOPHILS % (AUTO) 0.1 % (0-3); EOSINOPHILS % (AUTO) 0.2 % (0-5); MONOCYTES % (AUTO) 9.3 % (4-12); Mean Corpuscular Hemoglobin 30.5 pg (27.0-35.0); NEUTROPHILS % (AUTO) 77.8 % (40-74); Platelet Count 146 bil/L (150-400)
[2016-06-03] MEDS: Albuterol-Ipratropium 3 mL Inhalation Solution NEB SCH ×4 (07:33→20:16)
[2016-06-03] MEDS: FORMOTEROL FUMARATE INHALATION SCH ×2 (07:34→20:16)
[2016-06-03] MEDS: Fluticasone 100 mCg Inhaler INHALATION SCH ×2 (08:14→21:21)
[2016-06-03] MEDS: MeTOProlol XL 50 mg ER24 Tablet PO SCH ×2 (08:15→21:21)
[2016-06-03] MEDS: levoFLOXacin 500 mg Tablet PO SCH (08:15)
[2016-06-03] MEDS: Pantoprazole 40 mg ER24 Tablet PO SCH (08:15)
[2016-06-03] MEDS: Senna-Docusate 8.6-50 mg Tablet PO SCH (08:15)
[2016-06-03] MEDS: predniSONE 20 mg Tablet PO SCH (08:15)
[2016-06-03] MEDS: 0.9% NaCl + KCl 20 mEq/L 1,000 ML IV SCH (10:38)
--- NOTE | 2016-06-03 10:44 | NUR ---
Chest Tube: Responded to patient after being notified of chest tube becoming disconnected. Patient standing in room and tube laying on floor. Chest tube reconnected. paged and notified. Received order for CXR. Awaiting CXR.
--- NOTE | 2016-06-03 10:55 | NUR ---
Social Work: Continued d/c planning Data: Pt is on day 6 of hospitalization. EMR reviewed. Pt discussed in rounds. states pt would benefit from [facility] RN, PT still recommending home with outpt PT if needed. EVP AND CHIEF OPERATING OFFICER left a message with pt's daughter explaining this as well as that pt will likely remain at hospital for at least 2 more days, per . EVP AND CHIEF OPERATING OFFICER left a message with Avelino of [facility] referring pt, access given, F2F in [employer]P [employer]IEF [employer]PERATING OFFICER folder. EVP AND CHIEF OPERATING OFFICER will continue to follow. Assessment: Pt who is independent at baseline. Plan: Pt will d/c home via POV when medically stable with [facility]. EVP AND CHIEF OPERATING OFFICER will continue to follow. MIGUEL Recinos
--- NOTE | 2016-06-03 10:55 | NUR ---
EFRAIN signed MIGUEL Recinos
--- NOTE | 2016-06-03 11:40 | NUR ---
Off Unit: Patient transported to radiology for chest x-ray via wheelchair @ approx 1135. VSS. No apparent distress at time of transport.
--- NOTE | 2016-06-03 12:19 | DRSVH ---
PROCEDURE: X-RAY CHEST, TWO VIEWS ([id number]) INDICATIONS: Evaluate Pneumothorax TECHNIQUE: 2 views of the chest were acquired. COMPARISON: [facility], CR, XR CHEST 2VW, 05/30/2016, 8:05. FINDINGS: Surgical changes and devices: Right-sided pigtail chest tube is noted. Lungs and pleura: Trace apical right sided pneumothorax noted. Patchy opacities in the right lung b ase are stable compared to prior examination. Focal masslike a opacity in the periphery of the right lung base is stable.. Mediastinum: Mediastinal contours are normal. Heart size is normal. Bones and chest wall: No suspicious bony abnormalities. Soft tissues appear unremarkable. Subcutane ous air noted in the right chest wall soft tissues. IMPRESSION: Trace apical right sided pneumothorax. Dictated by: Siena Choi MD, PhD on 06/03/2016 at 12:16 Approved by: Siena Choi MD, PhD on 06/03/2016 at 12:18
--- NOTE | 2016-06-03 21:40 | PCM.PNMED ---
Subjective Date of Service Jun 03, 2016 Subjective Patient remains in good spirits. However, he states there was a little accident this morning when his chest tube tubing became disconnected. Patient states that he was not injured during this incident. Patient has no new complaints. Exam Vital Signs Vital Sign - Last Date Time Temp Pulse Resp B/P Pulse Ox O2 Delivery O2 Flow Rate FiO2 06/03/16 21:27 90 133/55 92 Nasal Cannula 2.00 06/03/16 20:19 20 06/03/16 18:18 36.7 Intake and Output 06/02/16 06/02/16 06/03/16 Cumulative From/Thru 15:00 23:00 07:00 05/28/16 14:05 - 06/03/16 06:15 Intake Total 487 ml 0 ml 87844 ml Output Total 1204 ml 675 ml 53417 ml Balance -717 ml -675 ml 1146 ml Intake Oral 487 ml 0 ml 5715 ml IV Total 5580 ml Output Urine Total 1200 ml 650 ml 79662 ml Emesis 4 ml 4 ml Chest Tube Drainage Total 25 ml 25 ml # Voids 1 11 # Bowel Movements 1 1 4 Exam General: Patient is in no apparent distress sitting up in a bedside chair. HEENT: Head is atraumatic and normocephalic. Eyes: Pupils are equally round and reactive to light and accommodation. Extraocular muscles are intact. Sclera are white, anicteric. Subconjunctival mucosa is pink. Ears and nose are unremarkable. Oropharynx: There is no mucosal lesions, there is no thrush, there is no pharyngitis. Neck: Is supple, there are no nodes, or masses or tenderness. Chest: There is improved breath sounds on the right. The chest tube in right chest is intact and the site is unremarkable. There are scattered crackles throughout the right lung base up to two thirds of the posterior right lung field on auscultation. However, again the right lung field is slightly clearer. Heart: Rate, rhythm is regular. There is no new murmur, rub or gallop. Abdomen: Good bowel sounds are present. Abdomen is soft, nontender, no organomegaly or masses were appreciated. Extremities: Are symmetrical and well perfused. There is no edema, there is no cellulitis, no rash. Neurologic: There are no focal neurological deficits. Cranial nerves II through XII are intact. There are no sensory or motor deficits. Psychiatric: Patients mood is calm and he shows no sign of agitation. Genital: Deferred Rectal: Deferred Lab and Diagnostics Result Diagram: 06/03/1660906/03/16609 Microbiology Name: Enriqueta CERVANTES Age/Sex: 75/M Attend Dr: Wisam Burns MD Acct: [id number] Unit: [id number] Status: ADM IN Location: [facility] [place] 3016-1 Re05/28/16 Disch: Specimen: [id number] Collected: 05/28/16 Status: RES Req#: [id number] Received: 05/28/16 Source: BLOOD Sp Desc : SURENDRA Alston Dr: Danuta Reed MD Ordered: BC Comments: Collected by Nurse/Unit? Y/N N Procedure Result Verified Site Microbiology NADER CULTURE BLOOD Preliminary 05/30/16-1525 No growth at 2 days; culture examined daily no report between 2-5 days if negative. X-Rays, CTs and MRIs CT chest concurrently reviewed by Andre 05/31 Severe emphysema with blebs, right-sided peripheral mass 1. Consolidative airspace opacity throughout the right lower lobe suspicious for aspiration/infection. Aspiration secondary to hemoptysis could also cause this appearance. 2. Discrete mass lesion within the lateral aspect of the right lower lobe. This finding is suspicious for a discrete neoplastic mass. Additionally, 2 spiculated lesions are present within the left lung base suspicious for neoplastic lesions. If clinically indicated, the right lower lobe mass may be amenable to CT-guided percutaneous biopsy. Of note, the patient is at increased risk for complication such as pneumothorax given the extensive emphysematous disease. 3. Solitary enlarged subcarinal lymph node. Differential considerations include reactive/infectious etiologies and korin metastasis. 4. No acute pulmonary embolus. Dictated by: Taniya Flor M.D. on 05/30/2016 at 16:30 PROCEDURE: US VENOUS LEG DUPLEX BILATERAL INDICATIONS: Hx of DVT TECHNIQUE: Real-time imaging, as well as color and pulse Doppler interrogation, were performed of the deep veins of both legs from the inguinal ligament to the popliteal fossa. COMPARISON: None. FINDINGS: The deep veins are normally compressible, and free of intraluminal thrombus. Color and pulse Doppler demonstrate normal phasic intravascular flow. There is normal augmentation response to distal compression maneuver. IMPRESSION: No deep venous thrombosis identified within either the left or right lower extremities. Dictated by: Sudhakar DAVIS Interpreted: Maki Mayer MD on 05/30/2016 at 16: 01 Transcribed by: IMTIAZ on 05/30/2016 at 16:01 Approved by: Maki Mayer M.D. on 06/01/2016 at 21:56 Cardiac Echo Impressions . Echocardiogram Report: Interpretation Summary Left ventricular systolic function is moderately reduced with the ejection fraction estimated to be 40-45% but has significantly improved compared to the prior exam. There is mild to moderate global hypokinesis that is significantly improved compared to the previous study but remains worse in the distal anteroseptum, apex, and periapical sgemtns which are essentially akinetic and unchanged from the previous study. Assessment of diastolic parameters indicates a relaxation abnormality of the left ventricle, consistent with normal filling pressures, and is unchanged compared to the previous study. The right ventricle is normal in size and function and has markedly improved compared to the previous study. The right ventricular systolic pressure is estimated at 39 mmHg assuming a right atrial pressure of 3 mm Hg, and is likely significantly lower compared to the previous study. The left atrium is mildly dilated and has mildly increased in size since the prior echo exam. Right atrial size is normal and has significantly decreased in size. There is moderate mitral regurgitation that is unchanged compared to the previous study, and mild to moderate tricuspid regurgitation that has significantly improved compared to the previous study. The ascending aorta is at the upper limits of normal in size and unchanged compared to the previous study. There is no pleural effusion seen, suggesting resolution of the previously seen effusions on the previous study. Assessment & Plan 75-year-old male admitted 05/28/16 with pneumonia/pulmonary hemorrhage. He was in acute respiratory failure that seems to have resolved overnight. # Right side peripheral lung mass-a CT-guided needle biopsy will be performed this morning - Patient developed a postprocedure pneumothorax and had a chest tube placed - We will await lung biopsy pathology report - Consider oncology consult once the pathology report has returned. # Hemoptysis-present on admission and persisting, patient coughed up another mass of blood this morning and seemed to show me. # Pulmonary Hemorrhage/Pneumonia- seems to have stabilized with reversal of warfarin/anticoagulation. However, patient is still having hemoptysis. - Coumadin has been discontinued and will only resumed per pulmonary/Dhruv recommendation if needed - DVT/ +/-PE (int prob v/q) 01/18/16, Doppler/CT angiogram negative for clot/PE 05/30 - Continue on Levaquin IV started on 05/28/16 - CT scan reveals mass which is likely source of hemorrhage # Acute blood loss anemia Hg 9.2 05/31 approximately stable - Corrected supratherapeutic INR with vitamin K given on 05/29/16 - INR 1.39 05/30, 1.12 05/31 # COPD Exacerbation/Pneumonia - IV Levaquin was given from 05/28-05/31/16, then 06/05/16, Levaquin was changed to 500mg by mouth q48 -06/03 - We will again to taper prednisone decreasing from 40 mg daily to 30 mg daily to start on 06/03/2016 - Continue Oxygen by [place] patient's on 2 L which is pretty much baseline 05/30/16 # HTN/CHF/Valvular Heart Disease and Cardiomyopathy - Continue his usual Cardiac medicines of losartan, metoprolol, Lasix. - Cautious IV fluid hydration was given - The BNP was 847. Patient does not seem clinically to be in overt heart failure, would use IV fluids cautiously # JG/Chronic Kidney Disease 3-JG resolved, IV fluids discontinued 05/31 -Creatinine was 1.64 05/29 -CR 1.27 05/30 much closer to baseline # Thrombocytopenia - The patient's baseline platelet seemed to be around 90,000 historically - Today the platelet count has improved to 46,000. - Lovenox DVT prophylaxis is on hold. # Supratherapeutic INR -resolved 05/30/16, off anticoagulation 05/28/16 -In the setting of warfarin/Levaquin I will give vitamin K 2.5 mg by mouth 05/29. -INR 1.39 05/30, 1.12 05/31 # DVT/PE 02/01-patient is coming up on 6 months of therapy with there are ongoing issues risk of warfarin outweighs benefit at this point in time and will likely be discontinued. Disposition: Patient will require several more days of hospitalization due to pneumothorax and chest tube placement. Pain Evaluation: Adequate Pain Control GI Prophylaxis: Proton Pump Inhibitor VTE Prophylaxis: Theraputic Anticoag with Warfarin VTE Mechanical Devices: Intermittant Pneumatic CD Resuscitation Status: CPR: Attempt Resuscitation Jose Cruz Carlson MD Jun 03, 2016 21:40
[2016-06-04] VITALS (12 sets, daily range): BP systolic 145–156; BP diastolic 52–71; PULSE 64–90; RESP 20–22; O2SAT 94–98
[2016-06-04] MEDS: 0.9% NaCl + KCl 20 mEq/L 1,000 ML IV SCH ×2 (00:30→14:36)
[2016-06-04 06:03] LABS: BASOPHILS % (AUTO) 0 % (0-3); EOSINOPHILS % (AUTO) 0.1 % (0-5); MONOCYTES % (AUTO) 8.9 % (4-12); Mean Corpuscular Hemoglobin 30.4 pg (27.0-35.0); Mean Corpuscular Volume 93.2 fL (81-100); NEUTROPHILS % (AUTO) 77.3 % (40-74); Platelet Count 131 bil/L (150-400)
--- NOTE | 2016-06-04 07:05 | NUR ---
Respiration/Chest tube Pt mild SOB at rest, increase when get up to bedside. SPO2 92-96% on O2 2l per nc. Intermittent nonproductive cough,no hemoptysis noted. Coarse lung sounds, no wheezes or crackles noted, decreased lung sounds improved. NEB by RT overnight. Chest tube in place at right later chest,low continuous wall suction, no air bubbles with cough or expiration. Dressing CDI, put out sero-sanguineus drainage 40ml/12hoursl. Cough and deep breathing encouraged to improve lung expansion. No c/o of chest pain.
[2016-06-04] MEDS: Albuterol-Ipratropium 3 mL Inhalation Solution NEB SCH ×4 (08:10→20:10)
[2016-06-04] MEDS: FORMOTEROL FUMARATE INHALATION SCH ×2 (08:10→20:09)
[2016-06-04] MEDS: Pantoprazole 40 mg ER24 Tablet PO SCH (10:08)
[2016-06-04] MEDS: Senna-Docusate 8.6-50 mg Tablet PO SCH (10:08)
[2016-06-04] MEDS: MeTOProlol XL 50 mg ER24 Tablet PO SCH ×2 (10:08→20:54)
[2016-06-04] MEDS: Fluticasone 100 mCg Inhaler INHALATION SCH ×2 (10:08→20:53)
[2016-06-04] MEDS: predniSONE 20 mg Tablet PO SCH (10:09)
[2016-06-04] MEDS ORDERED: Furosemide 10 mg/mL 4 mL Inj ONE (11:48)
--- NOTE | 2016-06-04 22:14 | PCM.PNMED ---
Subjective Date of Service Jun 04, 2016 Subjective Patient is still coughing up big chunks of blood. However he states that he is coughing up less phlegm. He has no chest pain. He has no new complaints. Exam Vital Signs Vital Sign - Last Date Time Temp Pulse Resp B/P Pulse Ox O2 Delivery O2 Flow Rate FiO2 06/04/16 20:10 Supplement Oxygen 06/04/16 20:10 74 20 95 2.00 06/04/16 19:54 36.4 145/68 Intake and Output 06/03/16 06/03/16 06/04/16 Cumulative From/Thru 15:00 23:00 07:00 05/28/16 14:05 - 06/04/16 04:25 Intake Total 1650 ml 775 ml 13630 ml Output Total 1230 ml 40 ml 35061 ml Balance 420 ml 735 ml 2301 ml Intake Oral 1160 ml 6875 ml IV Total 490 ml 775 ml 6845 ml Output Urine Total 1200 ml 36226 ml Emesis 4 ml Chest Tube Drainage Total 30 ml 55 ml Drainage Total 40 ml 40 ml # Voids 11 # Bowel Movements 0 4 Exam General: Patient is in no apparent distress sitting up in a bedside chair. HEENT: Head is atraumatic and normocephalic. Eyes: Pupils are equally round and reactive to light and accommodation. Extraocular muscles are intact. Sclera are white, anicteric. Subconjunctival mucosa is pink. Ears and nose are unremarkable. Oropharynx: There is no mucosal lesions, there is no thrush, there is no pharyngitis. Neck: Is supple, there are no nodes, or masses or tenderness. Chest: There is improved breath sounds on the right. The chest tube in right chest is intact and the site is unremarkable. There are scattered crackles throughout the right lung base up to two thirds of the posterior right lung field on auscultation. However, again the right lung field is slightly clearer again today. Heart: Rate, rhythm is regular. There is no new murmur, rub or gallop. Abdomen: Good bowel sounds are present. Abdomen is soft, nontender, no organomegaly or masses were appreciated. Extremities: Are symmetrical and well perfused. There is no edema, there is no cellulitis, no rash. Neurologic: There are no focal neurological deficits. Cranial nerves II through XII are intact. There are no sensory or motor deficits. Psychiatric: Patients mood is calm and he shows no sign of agitation. Genital: Deferred Rectal: Deferred Lab and Diagnostics Result Diagram: 06/04/1652806/04/16528 Microbiology Name: Enriqueta CERVANTES Age/Sex: 75/M Attend Dr: Wisam Burns MD Acct: [id number] Unit: [id number] Status: ADM IN [place] [facility] [place]016-1 Re05/28/16 Disch: Specimen: [id number] Collected: 05/28/16 Status: RES Req#: [id number] Received: 05/28/16 Source: BLOOD Sp Desc : AA Alecia Dr: Danuta Reed MD Ordered: NEO Comments: Collected by Nurse/Unit? Y/N N Procedure Result Verified Site Microbiology NADER CULTURE BLOOD Preliminary 05/30/16-1525 No growth at 2 days; culture examined daily no report between 2-5 days if negative. X-Rays, CTs and MRIs CT chest concurrently reviewed by Andre 05/31 Severe emphysema with blebs, right-sided peripheral mass 1. Consolidative airspace opacity throughout the right lower lobe suspicious for aspiration/infection. Aspiration secondary to hemoptysis could also cause this appearance. 2. Discrete mass lesion within the lateral aspect of the right lower lobe. This finding is suspicious for a discrete neoplastic mass. Additionally, 2 spiculated lesions are present within the left lung base suspicious for neoplastic lesions. If clinically indicated, the right lower lobe mass may be amenable to CT-guided percutaneous biopsy. Of note, the patient is at increased risk for complication such as pneumothorax given the extensive emphysematous disease. 3. Solitary enlarged subcarinal lymph node. Differential considerations include reactive/infectious etiologies and korin metastasis. 4. No acute pulmonary embolus. Dictated by: Taniya Flor M.D. on 05/30/2016 at 16:30 PROCEDURE: US VENOUS LEG DUPLEX BILATERAL INDICATIONS: Hx of DVT TECHNIQUE: Real-time imaging, as well as color and pulse Doppler interrogation, were performed of the deep veins of both legs from the inguinal ligament to the popliteal fossa. COMPARISON: None. FINDINGS: The deep veins are normally compressible, and free of intraluminal thrombus. Color and pulse Doppler demonstrate normal phasic intravascular flow. There is normal augmentation response to distal compression maneuver. IMPRESSION: No deep venous thrombosis identified within either the left or right lower extremities. Dictated by: Sudhakar DAVIS Interpreted: Maki Mayer MD on 05/30/2016 at 16: 01 Transcribed by: IMTIAZ on 05/30/2016 at 16:01 Approved by: Maki Mayer M.D. on 06/01/2016 at 21:56 Cardiac Echo Impressions . Echocardiogram Report: Interpretation Summary Left ventricular systolic function is moderately reduced with the ejection fraction estimated to be 40-45% but has significantly improved compared to the prior exam. There is mild to moderate global hypokinesis that is significantly improved compared to the previous study but remains worse in the distal anteroseptum, apex, and periapical sgemtns which are essentially akinetic and unchanged from the previous study. Assessment of diastolic parameters indicates a relaxation abnormality of the left ventricle, consistent with normal filling pressures, and is unchanged compared to the previous study. The right ventricle is normal in size and function and has markedly improved compared to the previous study. The right ventricular systolic pressure is estimated at 39 mmHg assuming a right atrial pressure of 3 mm Hg, and is likely significantly lower compared to the previous study. The left atrium is mildly dilated and has mildly increased in size since the prior echo exam. Right atrial size is normal and has significantly decreased in size. There is moderate mitral regurgitation that is unchanged compared to the previous study, and mild to moderate tricuspid regurgitation that has significantly improved compared to the previous study. The ascending aorta is at the upper limits of normal in size and unchanged compared to the previous study. There is no pleural effusion seen, suggesting resolution of the previously seen effusions on the previous study. Assessment & Plan 75-year-old male admitted 05/28/16 with pneumonia/pulmonary hemorrhage. He was in acute respiratory failure that seems to have resolved overnight after admission. She continues to have hemoptysis. # Right side peripheral lung mass-a CT-guided needle biopsy was performed 2016. - Patient developed a postprocedure pneumothorax and had a chest tube placed - We will await lung biopsy pathology report - Consider oncology consult once the pathology report has returned. - I have asked pulmonary to continue to follow the patient. # Hemoptysis-present on admission and persisting, - Patient continues to cough up large clots of blood. # Pulmonary Hemorrhage/Pneumonia- seems to have stabilized with reversal of warfarin/anticoagulation. However, patient is still having hemoptysis. - Coumadin has been discontinued and will only resumed per pulmonary/Dhruv recommendation if needed - DVT/ +/-PE (int prob v/q) 01/18/16, Doppler/CT angiogram negative for clot/PE 05/30 - Continue on Levaquin IV started on 05/28/16, patient states that he is feeling a little bit better - CT scan reveals mass which is likely source of hemorrhage # Acute blood loss anemia Hg 9.2 05/31 approximately stable - Corrected supratherapeutic INR with vitamin K given on 05/29/16 - INR 1.39 05/30, 1.12 05/31 # COPD Exacerbation/Pneumonia - IV Levaquin was given from 05/28-05/31/16, then 06/05/16, Levaquin was changed to 500mg by mouth q48 -06/03 - We will again to taper prednisone decreasing from 40 mg daily to 30 mg daily to start on 06/03/2016 - Continue Oxygen by [place] patient's on 2 L which is pretty much baseline 05/30/16 # HTN/CHF/Valvular Heart Disease and Cardiomyopathy - Suspect patient has hypertensive heart disease and unsure about the cause of his valvular disease - Continue his usual Cardiac medicines of losartan, metoprolol, Lasix. - Cautious IV fluid hydration was given - The BNP was 847. Patient does not seem clinically to be in overt heart failure, would use IV fluids cautiously # JG/Chronic Kidney Disease 3-JG resolved, IV fluids discontinued 05/31 -Creatinine was 1.64 05/29 -Creatinine is now 1.14 much closer to baseline # Thrombocytopenia improved - The patient's baseline platelet seemed to be around 90,000 historically - Today the platelet count has improved to 131,000. - Lovenox DVT prophylaxis is on hold due to the pulmonary hemorrhage and hemoptysis which is persisting. # Supratherapeutic INR -resolved 05/30/16, off anticoagulation 05/28/16 -In the setting of warfarin/Levaquin I will give vitamin K 2.5 mg by mouth 05/29. -INR 1.39 05/30, 1.12 05/31 # DVT/PE 02/01-patient is coming up on 6 months of therapy with there are ongoing issues risk of warfarin outweighs benefit at this point in time and will likely be discontinued. Disposition: Patient will require several more days of hospitalization due to pneumothorax and chest tube placement. Pain Evaluation: Adequate Pain Control GI Prophylaxis: Proton Pump Inhibitor VTE Prophylaxis: Theraputic Anticoag with Warfarin VTE Mechanical Devices: Intermittant Pneumatic CD Resuscitation Status: CPR: Attempt Resuscitation RobynJose Cruz MD Jun 04, 2016 22:14
[2016-06-05] VITALS (11 sets, daily range): BP systolic 130–159; BP diastolic 53–77; PULSE 67–82; RESP 18–22; O2SAT 94–100
[2016-06-05] MEDS: 0.9% NaCl + KCl 20 mEq/L 1,000 ML IV SCH ×2 (02:41→13:49)
--- NOTE | 2016-06-05 05:27 | NUR ---
Chest tube Chest tube to wall suction draining sero-sang drainage, dressing reinforced at beginning of shift, PT has no complaints of pain and only mild SOBOE. He still has a little hemoptysis but it in improving. Rested well last night and he is moving good air in both lungs.
[2016-06-05 06:52] LABS: BASOPHILS % (AUTO) 0.1 % (0-3); EOSINOPHILS % (AUTO) 0.4 % (0-5); MONOCYTES % (AUTO) 9.4 % (4-12); Mean Corpuscular Hemoglobin 30.6 pg (27.0-35.0); Mean Corpuscular Volume 93.9 fL (81-100); NEUTROPHILS % (AUTO) 73.7 % (40-74); Platelet Count 143 bil/L (150-400)
[2016-06-05] MEDS: Albuterol-Ipratropium 3 mL Inhalation Solution NEB SCH ×4 (07:21→20:53)
[2016-06-05] MEDS: Pantoprazole 40 mg ER24 Tablet PO SCH (08:14)
[2016-06-05] MEDS: Fluticasone 100 mCg Inhaler INHALATION SCH ×2 (08:14→20:41)
[2016-06-05] MEDS: MeTOProlol XL 50 mg ER24 Tablet PO SCH ×2 (08:15→20:41)
[2016-06-05] MEDS: Senna-Docusate 8.6-50 mg Tablet PO SCH (08:15)
[2016-06-05] MEDS: predniSONE 20 mg Tablet PO SCH (08:15)
[2016-06-05] MEDS: FORMOTEROL FUMARATE INHALATION SCH ×2 (08:30→20:52)
--- NOTE | 2016-06-05 09:49 | NUR ---
refused to sign EFRAIN
--- NOTE | 2016-06-05 14:26 | DRSVH ---
PROCEDURE: X-RAY CHEST ONE VIEW, PORTABLE ([id number]) INDICATIONS: Pneumothorax TECHNIQUE: One view of the chest was acquired. COMPARISON: [facility], CR, XR CHEST 2VW, 06/03/2016, 11:16. [facility], CR, XR CHEST 1VW (PORTABLE), 05/28/2016, 14:11. FINDINGS: Surgical changes and devices: Right-sided pigtail chest tube is noted. Lungs and pleura: Trace apical right sided pneumothorax noted. Patchy opacities in the right lung b ase are stable compared to prior examination. Focal masslike a opacity in the periphery of the right lung base is stable.. Mediastinum: Mediastinal contours are normal. Heart size is normal. Bones and chest wall: No suspicious bony abnormalities. Soft tissues appear unremarkable. Subcutane ous air noted in the right chest wall soft tissues. IMPRESSION: Resolved right pneumothorax and patchy opacity in the right lung base as well as focal op acity, stable compared to prior exam. Continued radiographic surveillance to resolution is recomme nded. Dictated by: Sudhakar Jo RRA Interpreted: Siena Choi MD on 06/05/2016 at 14:24 Transcribed by: JAQUAN on 06/05/2016 at 14:26 Approved by: Siena Choi MD, PhD on 06/05/2016 at 16:34
--- NOTE | 2016-06-05 14:55 | PROG NOTE ---
[address] [address] PROGRESS NOTE PATIENT: Enriqueta CERVANTES : 1940 MR#: [id number] ADMIT: 05/28/2016 JOB ID: [id number] DATE: 06/05/2016 PROBLEM LIST: 1. Hemoptysis. 2. Lung mass. 3. Small pneumothorax status post transthoracic needle aspiration biopsy. 4. Emphysematous lung disease. SUBJECTIVE: Breathing comfortably. No chest pain. No chest pain at the site of the chest tube. Hemoptysis has almost resolved. Breathing relatively comfortably. Appetite improving. OBJECTIVE: Temperature 36.4. Pulse 70. Respiratory rate 18-22. Blood pressure 159/77, O2 sat on 2 L is 100%. I and O shows 3.4 L in, 2.6 L out. General appearance: Sitting in chair. Comfortable. Speaking easily. Moving in chair easily. Chest: Fair breath sounds bilaterally. Significantly diminished at both bases. Crackles at the lower right lung field. No subcutaneous emphysema around the chest tube site. A very small air leak with one bubble maybe every 30 seconds or so. Heart: Heart tones normal. Abdomen soft. Bowel tones present. ASSESSMENT: 1. Small pneumothorax. Will obtain a chest x-ray. Suspect that is pretty much gone at this point. Still with a small pneumothorax, film of 48 hours ago. Will check it again but suspect that pneumothorax is probably gone with only a very small leak. Will continue the chest tube to suction. 2. Lung mass. Awaiting path report. 3. Hemoptysis slowly abating. PLAN: 1. Continue chest tube to suction. 2. Chest x-ray, upright: Underpenetrated view.
--- NOTE | 2016-06-05 15:11 | NUR ---
Activity/Chest Tube: Patient OOB to chair most of day. States SOB is "better" today w/exertion that compared to prior days. Baseline O2 2L via NC, 98-100% O2 sats. Rt chest tube to continuous low wall suction, draining minimal sero-sanguinous fluid. Dressing C/D/I. Continues to cough minimal dark clot-appearing sputum, however less than previous days. MDs aware.
--- NOTE | 2016-06-05 21:38 | PCM.PNMED ---
Subjective Date of Service Jun 05, 2016 Subjective Patient is feeling little bit better. He states that his hemoptysis is improving. However he still is coughing up some blood. He has no other new complaints. Exam Vital Signs Vital Sign - Last Date Time Temp Pulse Resp B/P Pulse Ox O2 Delivery O2 Flow Rate FiO2 06/05/16 20:54 80 20 100 Nasal Cannula 2.00 06/05/16 19:45 36.6 151/69 Intake and Output 06/04/16 06/04/16 06/05/16 Cumulative From/Thru 15:00 23:00 07:00 05/28/16 14:05 - 06/05/16 06:17 Intake Total 400 ml 2299 ml 1340 ml 64181 ml Output Total 950 ml 1610 ml 1825 ml 49014 ml Balance -550 ml 689 ml -485 ml 1955 ml Intake Oral 400 ml 1300 ml 490 ml 9065 ml IV Total 999 ml 850 ml 8694 ml Output Urine Total 950 ml 1600 ml 1775 ml 30132 ml Emesis 4 ml Chest Tube Drainage Total 10 ml 65 ml Drainage Total 50 ml 90 ml # Voids 11 # Bowel Movements 1 1 6 Exam General: Patient is in no apparent distress sitting up in a bedside chair. HEENT: Head is atraumatic and normocephalic. Eyes: Pupils are equally round and reactive to light and accommodation. Extraocular muscles are intact. Sclera are white, anicteric. Subconjunctival mucosa is pink. Ears and nose are unremarkable. Oropharynx: There is no mucosal lesions, there is no thrush, there is no pharyngitis. Neck: Is supple, there are no nodes, or masses or tenderness. Chest: There is improved breath sounds again today on the right. The chest tube in right chest is intact and the site is unremarkable. Heart: Rate, rhythm is regular. There is no new murmur, rub or gallop. Abdomen: Good bowel sounds are present. Abdomen is soft, nontender, no organomegaly or masses were appreciated. Extremities: Are symmetrical and well perfused. There is no edema, there is no cellulitis, no rash. Neurologic: There are no focal neurological deficits. Cranial nerves II through XII are intact. There are no sensory or motor deficits. Psychiatric: Patients mood is calm and he shows no sign of agitation. Genital: Deferred Rectal: Deferred Lab and Diagnostics Result Diagram: 06/05/1660506/05/16605 Microbiology Name: Enriqueta CERAVNTES Age/Sex: 75/M Attend Dr: Wisam Burns MD Acct: [id number] Unit: [id number] Status: ADM IN [place] [facility] [place]05/28[place] Disch: Specimen: [id number] Collected: 05/28/16 Status: RES Req#: [id number] Received: 05/28/16 Source: BLOOD Sp Desc : AA Alecia Dr: Danuta Reed MD Ordered: Comments: Collected by Nurse/Unit? Y/N N Procedure Result Verified Site Microbiology NADER CULTURE BLOOD Preliminary 05/30/16-1525 No growth at 2 days; culture examined daily no report between 2-5 days if negative. X-Rays, CTs and MRIs CT chest concurrently reviewed by Andre 05/31 Severe emphysema with blebs, right-sided peripheral mass 1. Consolidative airspace opacity throughout the right lower lobe suspicious for aspiration/infection. Aspiration secondary to hemoptysis could also cause this appearance. 2. Discrete mass lesion within the lateral aspect of the right lower lobe. This finding is suspicious for a discrete neoplastic mass. Additionally, 2 spiculated lesions are present within the left lung base suspicious for neoplastic lesions. If clinically indicated, the right lower lobe mass may be amenable to CT-guided percutaneous biopsy. Of note, the patient is at increased risk for complication such as pneumothorax given the extensive emphysematous disease. 3. Solitary enlarged subcarinal lymph node. Differential considerations include reactive/infectious etiologies and korin metastasis. 4. No acute pulmonary embolus. Dictated by: Taniya Flor M.D. on 05/30/2016 at 16:30 PROCEDURE: US VENOUS LEG DUPLEX BILATERAL INDICATIONS: Hx of DVT TECHNIQUE: Real-time imaging, as well as color and pulse Doppler interrogation, were performed of the deep veins of both legs from the inguinal ligament to the popliteal fossa. COMPARISON: None. FINDINGS: The deep veins are normally compressible, and free of intraluminal thrombus. Color and pulse Doppler demonstrate normal phasic intravascular flow. There is normal augmentation response to distal compression maneuver. IMPRESSION: No deep venous thrombosis identified within either the left or right lower extremities. Dictated by: Sudhakar DAVIS Interpreted: Maki Mayer MD on 05/30/2016 at 16: 01 Transcribed by: IMTIAZ on 05/30/2016 at 16:01 Approved by: Maki Mayer M.D. on 06/01/2016 at 21:56 Cardiac Echo Impressions . Echocardiogram Report: Interpretation Summary Left ventricular systolic function is moderately reduced with the ejection fraction estimated to be 40-45% but has significantly improved compared to the prior exam. There is mild to moderate global hypokinesis that is significantly improved compared to the previous study but remains worse in the distal anteroseptum, apex, and periapical sgemtns which are essentially akinetic and unchanged from the previous study. Assessment of diastolic parameters indicates a relaxation abnormality of the left ventricle, consistent with normal filling pressures, and is unchanged compared to the previous study. The right ventricle is normal in size and function and has markedly improved compared to the previous study. The right ventricular systolic pressure is estimated at 39 mmHg assuming a right atrial pressure of 3 mm Hg, and is likely significantly lower compared to the previous study. The left atrium is mildly dilated and has mildly increased in size since the prior echo exam. Right atrial size is normal and has significantly decreased in size. There is moderate mitral regurgitation that is unchanged compared to the previous study, and mild to moderate tricuspid regurgitation that has significantly improved compared to the previous study. The ascending aorta is at the upper limits of normal in size and unchanged compared to the previous study. There is no pleural effusion seen, suggesting resolution of the previously seen effusions on the previous study. Assessment & Plan Patient is a 75-year-old male admitted 05/28/16 with pneumonia/pulmonary hemorrhage. He was in acute respiratory failure that seems to have resolved overnight after admission. She continues to have hemoptysis. # Right side peripheral lung mass-a CT-guided needle biopsy was performed 2016. - Patient developed a postprocedure pneumothorax and had a chest tube placed - We will await lung biopsy pathology report - Consider oncology consult once the pathology report has returned. - I have asked pulmonary to continue to follow the patient and appreciate Dr. Castillo's input today. # Hemoptysis-present on admission and persisting, - Patient continues to cough up clots of blood. However, the hemoptysis has improved some. # Pulmonary Hemorrhage/Pneumonia- seems to have stabilized with reversal of warfarin/anticoagulation. However, patient is still having hemoptysis. - Coumadin has been discontinued and will only resumed per pulmonary/Dhruv recommendation if needed - DVT/ +/-PE (int prob v/q) 01/18/16, Doppler/CT angiogram negative for clot/PE 05/30 - Continue on Levaquin IV started on 05/28/16, patient states that he is feeling a little bit better - CT scan reveals mass which is likely source of hemorrhage - Check results of needle biopsy. # Acute blood loss anemia Hgb remains stable - Corrected supratherapeutic INR with vitamin K given on 05/29/16 - INR 1.39 05/30, 1.12 05/31 # COPD Exacerbation/Pneumonia - IV Levaquin was given from 05/28-05/31/16, then 06/05/16, Levaquin was changed to 500mg by mouth q48 -06/03 and has subsequently been discontinued. - We will to new to taper prednisone decreasing from 40 mg daily to 30 mg daily started on 06/03/2016. We will decrease prednisone to 20 mg by mouth daily on 06/06/2016. - Continue Oxygen by VT patient's on 2 L which is pretty much baseline 05/30/16 # HTN/CHF/Valvular Heart Disease and Cardiomyopathy - Suspect patient has hypertensive heart disease and unsure about the cause of his valvular disease - Continue his usual Cardiac medicines of losartan, metoprolol, Lasix. - Cautious IV fluid hydration was given - The BNP was 847. Patient does not seem clinically to be in overt heart failure, would use IV fluids cautiously # JG/Chronic Kidney Disease 3-JG resolved, IV fluids discontinued 05/31 -Creatinine was 1.64 05/29 -Creatinine is now 1. 21 and appears to have reached baseline # Thrombocytopenia improved - The patient's baseline platelet seemed to be around 90,000 historically - Today the platelet count has improved to 143,000. - Lovenox DVT prophylaxis is on hold due to the pulmonary hemorrhage and hemoptysis which is persisting. # Supratherapeutic INR -resolved 05/30/16, off anticoagulation 05/28/16 -In the setting of warfarin/Levaquin I will give vitamin K 2.5 mg by mouth 05/29. -INR 1.39 05/30, 1.12 05/31 # DVT/PE 02/01-patient is coming up on 6 months of therapy with there are ongoing issues risk of warfarin outweighs benefit at this point in time and will likely be discontinued. Disposition: Patient will require a few more days of hospitalization due to pneumothorax and chest tube placement. Pain Evaluation: Adequate Pain Control GI Prophylaxis: Proton Pump Inhibitor VTE Prophylaxis: Theraputic Anticoag with Warfarin VTE Mechanical Devices: Intermittant Pneumatic CD Resuscitation Status: CPR: Attempt Resuscitation YukonJose Cruz MD Jun 05, 2016 21:38
[2016-06-06] VITALS (13 sets, daily range): BP systolic 119–150; BP diastolic 56–75; PULSE 72–88; RESP 16–20; O2SAT 92–99
[2016-06-06] MEDS: 0.9% NaCl + KCl 20 mEq/L 1,000 ML IV SCH ×2 (02:53→15:31)
--- NOTE | 2016-06-06 03:46 | NUR ---
Transfer of Care Transfer of care to Sunita Lombardo RN. Pt is currently sleeping with, 2LPM NC o2, and saturating 94%. VSS, and afebrile. Chest tube intact and patent.
--- NOTE | 2016-06-06 06:42 | NUR ---
Uneventful Night: Pt had an uneventful night, no c/o pain, chest pain or SOB. Chest tube intact, minimal drainage. Pt slept most of the night, pleasant and cooperative with care.
[2016-06-06 06:51] LABS: BASOPHILS % (AUTO) 0.1 % (0-3); EOSINOPHILS % (AUTO) 0.8 % (0-5); Mean Corpuscular Hemoglobin 30.2 pg (27.0-35.0); Mean Corpuscular Volume 93.8 fL (81-100); NEUTROPHILS % (AUTO) 70.6 % (40-74); Platelet Count 152 bil/L (150-400)
[2016-06-06] MEDS: Albuterol-Ipratropium 3 mL Inhalation Solution NEB SCH ×4 (07:20→20:17)
[2016-06-06] MEDS: FORMOTEROL FUMARATE INHALATION SCH ×2 (07:20→20:18)
[2016-06-06] MEDS: MeTOProlol XL 50 mg ER24 Tablet PO SCH ×2 (08:04→20:45)
[2016-06-06] MEDS: Fluticasone 100 mCg Inhaler INHALATION SCH ×2 (08:04→20:45)
[2016-06-06] MEDS: predniSONE 20 mg Tablet PO SCH (08:07)
[2016-06-06] MEDS: Pantoprazole 40 mg ER24 Tablet PO SCH (08:07)
[2016-06-06] MEDS: Senna-Docusate 8.6-50 mg Tablet PO SCH (08:08)
--- NOTE | 2016-06-06 09:55 | NUR ---
Off unit Pt off unit to CXR, perinatal technician notified. Addendum: 06/06/16 at 1017 by LOUISE LEPE RN Pt back on unit at 1010, nutrition tech notified
--- NOTE | 2016-06-06 13:10 | DRSVH ---
PROCEDURE: X-RAY CHEST, TWO VIEWS ([id number]) INDICATIONS: Follow up for Pneumothorax TECHNIQUE: 2 views of the chest were acquired. COMPARISON: [facility], CR, XR CHEST 1VW (PORTABLE), 06/05/2016, 11:09. [facility], CR, XR CHEST 2VW, 06/03/2016, 11:16. [facility], CT, CT BX LUNG MEDIASTINUM, 06/02, 8:51. FINDINGS: Surgical changes and devices: Right-sided pigtail chest tube is noted. Lungs and pleura: Trace apical right sided pneumothorax has resolved. Patchy opacities in the right lung base are stable compared to prior examination. Focal masslike a opacity in the periphery of th e right lung base is stable.. Mediastinum: Mediastinal contours are normal. Heart size is normal. Bones and chest wall: No suspicious bony abnormalities. Soft tissues appear unremarkable. Subcutane ous air noted in the right chest wall soft tissues. IMPRESSION: Resolved trace right pneumothorax otherwise no change from prior exam. Continued radiogra [facility] surveillance to resolution is recommended. Dictated by: Sudhakar Jo [facility] Interpreted: Ruben Ramos MD on 06/06/2016 at 13:09 Transcribed by: LENIN on 06/06/2016 at 13:10 Approved by: Ruben Ramos M.D. on 06/06/2016 at 17:12
--- NOTE | 2016-06-06 15:17 | PATH ---
SURGICAL PATHOLOGY Attending Physician:See Additional MD CASE STATUS: Signed Out PATIENT NAME: Enriqueta CERVANTES PID: [id number] : 1940 DATE COLLECTED:06/02/2016 16:33 SPECIMEN: Lung Biopsy CLINICAL HISTORY: RIGHT LUNG MASS 1). RIGHT LOWER LUNG MASS FINAL DIAGNOSIS: 1.BIOPSIES, RIGHT LOWER LUNG MASS: MINUTE FRAGMENTS OF PULMONARY TISSUE WITH DILATED AIR SPACES CONSISTENT WITH EMPHYSEMA. TWO FRAGMENTS OF PULMONARY TISSUE WITH PROMINENT NONSPECIFIC FIBROSIS. NEGATIVE FOR EVIDENCE OF NEOPLASM. ICD10 CODE J98.4 GROSS DESCRIPTION: The specimen is received in one formalin filled container labeled with the patient's name, sublabeled "right lung mass" and consists of multiple white garcia tiny fragments of cylindrical shaped tissue which aggregate to 0.5 x 0.1 x 0.1 CM. The specimen is filtered and entirely submitted in one cassette. 06/02/2016 [facility] MICRO DESCRIPTION: See diagnosis. ICD-9 CODES: CPT CODES: 1: 63813 Electronically Signed Out Jeffy Villalta MD [facility] [address], [place] [address] Technical component performed at [facility], [facility] [address], [place], [address]
--- NOTE | 2016-06-06 15:53 | NUR ---
Social Work: Continued discharge planning: Data:EMR reviewed. Pt is on day 9 of hospitalization for pneumonia per H&P. Pt anticipated to be in the hospital for several more days. states pt would benefit from HH RN, PT still recommending home with outpt PT if needed. Referral has been made to [facility] for RN,PT, and OT. Pt likely to be homebound and pt's daughter provides 09/10 are at home. F2F in folder. SW will continue to follow. Assessment: Pt who is independent at baseline. Plan: Pt to discharge home with daughter when medically stable via POV. Referral made to [facility] for RN,PT, and OT. F2F in folder. SW will continue to follow. MIGUEL Hinson
--- NOTE | 2016-06-06 16:27 | PCM.PNMED ---
Subjective Date of Service Jun 06, 2016 Subjective Pulmonology Consult: Attending physician Dr. Fabio Mcneil. Requesting Physician Dr. Powell Mr Hein is a 75 year old male with a past medical history of COPD, CHF with EF of ~23% and MR, DVT, Pulmonary hypertension and renal insufficiency presented to [facility] ED secondary to hemoptysis x 2 days. Pulmonology consult requested secondary to hemoptysis. Differential includes PE, barotrauma, underlying malignancy. Overnight: Patient had uneventful night no complaints of pain, chest pain or shortness of breath. Chest tube remains intact with minimal drainage 30 mL over 24 hours. At time of interview patient denies KIM, and/V, CP, SOB, chest wall pain, abdominal pain, GI or type symptoms. Patient still has not been able to ambulate outside of his room secondary to chest tube drainage container secured to floor. Other than that he is in very good spirits and is eager to go home. Exam Vital Signs Vital Sign - Last Date Time Temp Pulse Resp B/P Pulse Ox O2 Delivery O2 Flow Rate FiO2 06/06/16 16:15 88 20 93 Nasal Cannula 2.00 06/06/16 12:58 36.7 133/61 Intake and Output 06/05/16 06/05/16 06/06/16 Cumulative From/Thru 15:00 23:00 07:00 05/28/16 14:05 - 06/06/16 05:50 Intake Total 1950 ml 1231 ml 30395 ml Output Total 3185 ml 800 ml 60081 ml Balance -1235 ml 431 ml 1151 ml Intake Oral 1950 ml 420 ml 77807 ml IV Total 811 ml 9505 ml Output Urine Total 3175 ml 800 ml 61474 ml Emesis 4 ml Chest Tube Drainage Total 10 ml 75 ml Drainage Total 90 ml # Voids 11 # Bowel Movements 2 0 8 Exam General: Sitting up in bed in no acute distress, appropriately interactive reactive. Chest tube in place draining to container secured to the floor. HEENT: Normocephalic, atraumatic. External ears without defect. Pupils equal, round, and reactive to light and accommodation. Neck: Mild JVD, much improved from previous exam No bruits. Cardiovascular: Regular rate and rhythm with no murmurs, rubs, or gallops appreciated. Pulmonary: Chest tube in place right flank. Right lower lobe crackles. Other lung andrews clear to auscultation Abdomen:Soft, nontender, nondistended. Extremities: Finger clubbing, no cyanosis. Mild Lower extremity pretibial edema , much improved from previous. Left index finger missing after second knuckle. Neurological: Cranial nerves grossly intact. Psychiatric: Normal mood and affect. Alert and oriented to person, place, and time. IVs and Medications Medications Reviewed: Medications were reviewed in detail Lab and Diagnostics No growth 5 days Result Diagram: 06/06/16 0623 06/06/16 0623 X-Rays, CTs and MRIs . X-RAY CHEST ONE VIEW, PORTABLE 05/28/2016 IMPRESSION: Right mid and lower lung patchy radiopacities suspicious for aspiration/infection superimposed on severe centrilobular emphysema. Short interval followup is recommended to ensure resolution of this finding and exclude underlying pulmonary pathology. X-RAY CHEST, TWO VIEWS 05/30/2016 IMPRESSION: 1. Mid right and lower lung diffuse interstitial opacities redemonstrated not significantly changed which may be related to aspiration/infection but pulmonary hemorrhage cannot be excluded. If indicated chest CT scan could be performed for further characterization. 2. Emphysematous changes redemonstrated. X-RAY CHEST, TWO VIEWS 06/03/2016 IMPRESSION: Trace apical right sided pneumothorax. X-RAY CHEST ONE VIEW, PORTABLE 06/05/2016 IMPRESSION: Resolved right pneumothorax and patchy opacity in the right lung base as well as focal opacity, stable compared to prior exam. Continued radiographic surveillance to resolution is recommended. X-RAY CHEST, TWO VIEWS 06/06/2016 IMPRESSION: Resolved trace right pneumothorax otherwise no change from prior exam. Continued radiographic surveillance to resolution is recommended. CT ANGIO CHEST PULMONARY EMBOLISM 05/30/2016 IMPRESSION: 1. Consolidative airspace opacity throughout the right lower lobe suspicious for aspiration/infection. Aspiration secondary to hemoptysis could also cause this appearance. 2. Discrete mass lesion within the lateral aspect of the right lower lobe. This finding is suspicious for a discrete neoplastic mass. Additionally, 2 spiculated lesions are present within the left lung base suspicious for neoplastic lesions. If clinically indicated, the right lower lobe mass may be amenable to CT-guided percutaneous biopsy. Of note, the patient is at increased risk for complication such as pneumothorax given the extensive emphysematous disease. 3. Solitary enlarged subcarinal lymph node. Differential considerations include reactive/infectious etiologies and korin metastasis. 4. No acute pulmonary embolus. 1. CT-guided lung biopsy. 06/02/[address]-guided chest tube placement. IMPRESSION: 1. CT guided chest tube placement for treatment of pneumothorax encountered during lung biopsy. 2. Successful CT-guided biopsy of left lung base nodule. US VENOUS LEG DUPLEX BILATERAL 05/30/2016 IMPRESSION: No deep venous thrombosis identified within either the left or right lower extremities. Cardiac Echo Impressions . Echocardiogram Report: Interpretation Summary Left ventricular systolic function is moderately reduced with the ejection fraction estimated to be 40-45% but has significantly improved compared to the prior exam. There is mild to moderate global hypokinesis that is significantly improved compared to the previous study but remains worse in the distal anteroseptum, apex, and periapical sgemtns which are essentially akinetic and unchanged from the previous study. Assessment of diastolic parameters indicates a relaxation abnormality of the left ventricle, consistent with normal filling pressures, and is unchanged compared to the previous study. The right ventricle is normal in size and function and has markedly improved compared to the previous study. The right ventricular systolic pressure is estimated at 39 mmHg assuming a right atrial pressure of 3 mm Hg, and is likely significantly lower compared to the previous study. The left atrium is mildly dilated and has mildly increased in size since the prior echo exam. Right atrial size is normal and has significantly decreased in size. There is moderate mitral regurgitation that is unchanged compared to the previous study, and mild to moderate tricuspid regurgitation that has significantly improved compared to the previous study. The ascending aorta is at the upper limits of normal in size and unchanged compared to the previous study. There is no pleural effusion seen, suggesting resolution of the previously seen effusions on the previous study. Additional Diagnostics DATE COLLECTED:06/02/2016 16:33 SPECIMEN: Lung Biopsy CLINICAL HISTORY: RIGHT LUNG MASS 1). RIGHT LOWER LUNG MASS FINAL DIAGNOSIS: 1.BIOPSIES, RIGHT LOWER LUNG MASS: MINUTE FRAGMENTS OF PULMONARY TISSUE WITH DILATED AIR SPACES CONSISTENT WITH EMPHYSEMA. TWO FRAGMENTS OF PULMONARY TISSUE WITH PROMINENT NONSPECIFIC FIBROSIS. NEGATIVE FOR EVIDENCE OF NEOPLASM. GROSS DESCRIPTION: The specimen is received in one formalin filled container labeled with the patient's name, sublabeled "right lung mass" and consists of multiple white garcia tiny fragments of cylindrical shaped tissue which aggregate to 0.5 x 0.1 x 0.1 CM. The specimen is filtered and entirely submitted in one cassette. 06/02/2016 [facility] MICRO DESCRIPTION: See diagnosis. Assessment & Plan 75 male admitted 05/28/2016 with pneumonia/pulmonary hemorrhage. Pulmonology consult secondary to hemoptysis and mass found on CT. During needle biopsy patient had pneumothorax requiring addition to hospital stay. 1. Pneumothorax secondary to CT transthoracic fine-needle biopsy, requiring chest tube placement. - Chest x-ray 06/06/2016 shows resolved trace right pneumothorax - Tomorrow 06/07/2016 will start a water seal on the chest tube, and repeat chest x-ray approximately 8 hours later - If no evidence of continuing pneumothorax will remove chest tube 06/08/2016 followed by repeat chest x-ray 2-3 hours after to ensure resolution of pneumothorax 2. Lung mass. - CT showed a mass which may be neoplastic in nature. - Pathology report received 06/06/2016 NEGATIVE FOR EVIDENCE OF NEOPLASM. 3. Hemoptysis. Resolved - CT showed no evidence of pulmonary embolism - Hemoptysis has resolved, patient states he has not coughed or coughed up blood in the last 24+ hours - Hemoptysis most likely secondary to barotrauma from chronic cough, with concomitant supratherapeutic INR on admission 4. COPD Exacerbation/Pneumonia - Patient finished Levaquin course - Prednisone taper now to 20 mg by mouth daily - Continue supplemental oxygen GI Prophylaxis: Proton Pump Inhibitor VTE Prophylaxis: Theraputic Anticoag with Warfarin VTE Mechanical Devices: Intermittant Pneumatic CD Resuscitation Status: CPR: Attempt Resuscitation Attending Statement The patient was seen and examined together with Dr. Merino on 06/06/2016 and I agree with the history, exam and plan as outlined in the note above. ROSALINDA MERINO DO Jun 06, 2016 16:27 Fabio Mcneil MD Jun 11, 2016 11:16 GI Prophylaxis: Proton Pump Inhibitor VTE Prophylaxis: Theraputic Anticoag with Warfarin VTE Mechanical Devices: Intermittant Pneumatic CD Resuscitation Status: CPR: Attempt Resuscitation ROSALINDA MERINO DO Jun 06, 2016 16:27 # DVT/PE 16-patient is coming up on 6 months of therapy with there are ongoing issues risk of warfarin outweighs benefit at this point in time and will likely be discontinued. Disposition: Patient will require a few more days of hospitalization due to pneumothorax and chest tube placement. GI Prophylaxis: Proton Pump Inhibitor VTE Prophylaxis: Theraputic Anticoag with Warfarin VTE Mechanical Devices: Intermittant Pneumatic CD Resuscitation Status: CPR: Attempt Resuscitation ROSALINDA MERINO DO Jun 06, 2016 16:27
[2016-06-06] MEDS ORDERED: diphenhydrAMINE 25 mg Capsule PO PRN (16:35)
--- NOTE | 2016-06-06 19:45 | PCM.PNMED ---
Subjective Date of Service Jun 06, 2016 Subjective Patient remains in good spirits he states that the hemoptysis is improving daily he still having some but it is much better. He has no other new complaints no fever, no chills and no diaphoresis. Patient has no nausea no vomiting no diarrhea. Exam Vital Signs Vital Sign - Last Date Time Temp Pulse Resp B/P Pulse Ox O2 Delivery O2 Flow Rate FiO2 06/06/16 19:19 Supplement Oxygen 06/06/16 17:12 36.6 86 18 150/63 94 2.00 Intake and Output 06/05/16 06/05/16 06/06/16 Cumulative From/Thru 15:00 23:00 07:00 05/28/16 14:05 - 06/06/16 05:50 Intake Total 1950 ml 1231 ml 96000 ml Output Total 3185 ml 800 ml 36034 ml Balance -1235 ml 431 ml 1151 ml Intake Oral 1950 ml 420 ml 26568 ml IV Total 811 ml 9505 ml Output Urine Total 3175 ml 800 ml 22436 ml Emesis 4 ml Chest Tube Drainage Total 10 ml 75 ml Drainage Total 90 ml # Voids 11 # Bowel Movements 2 0 8 Exam General: Patient is in no apparent distress sitting up in a bedside chair. HEENT: Head is atraumatic and normocephalic. Eyes: Pupils are equally round and reactive to light and accommodation. Extraocular muscles are intact. Sclera are white, anicteric. Subconjunctival mucosa is pink. Ears and nose are unremarkable. Oropharynx: There is no mucosal lesions, there is no thrush, there is no pharyngitis. Neck: Is supple, there are no nodes, or masses or tenderness. Chest: There is improved breath sounds again today on the right. The chest tube in right chest is intact and the site is unremarkable. Heart: Rate, rhythm is regular. There is no new murmur, rub or gallop. Abdomen: Good bowel sounds are present. Abdomen is soft, nontender, no organomegaly or masses were appreciated. Extremities: Are symmetrical and well perfused. There is no edema, there is no cellulitis, no rash. Neurologic: There are no focal neurological deficits. Cranial nerves II through XII are intact. There are no sensory or motor deficits. Psychiatric: Patients mood is calm and he shows no sign of agitation. Genital: Deferred Rectal: Deferred Lab and Diagnostics Result Diagram: 06/06/1662206/06/16622 Microbiology Cultures are negative at 5 days. X-Rays, CTs and MRIs . X-RAY CHEST ONE VIEW, PORTABLE 05/28/2016 IMPRESSION: Right mid and lower lung patchy radiopacities suspicious for aspiration/infection superimposed on severe centrilobular emphysema. Short interval followup is recommended to ensure resolution of this finding and exclude underlying pulmonary pathology. X-RAY CHEST, TWO VIEWS 05/30/2016 IMPRESSION: 1. Mid right and lower lung diffuse interstitial opacities redemonstrated not significantly changed which may be related to aspiration/infection but pulmonary hemorrhage cannot be excluded. If indicated chest CT scan could be performed for further characterization. 2. Emphysematous changes redemonstrated. X-RAY CHEST, TWO VIEWS 06/03/2016 IMPRESSION: Trace apical right sided pneumothorax. X-RAY CHEST ONE VIEW, PORTABLE 06/05/2016 IMPRESSION: Resolved right pneumothorax and patchy opacity in the right lung base as well as focal opacity, stable compared to prior exam. Continued radiographic surveillance to resolution is recommended. X-RAY CHEST, TWO VIEWS 06/06/2016 IMPRESSION: Resolved trace right pneumothorax otherwise no change from prior exam. Continued radiographic surveillance to resolution is recommended. CT ANGIO CHEST PULMONARY EMBOLISM 05/30/2016 IMPRESSION: 1. Consolidative airspace opacity throughout the right lower lobe suspicious for aspiration/infection. Aspiration secondary to hemoptysis could also cause this appearance. 2. Discrete mass lesion within the lateral aspect of the right lower lobe. This finding is suspicious for a discrete neoplastic mass. Additionally, 2 spiculated lesions are present within the left lung base suspicious for neoplastic lesions. If clinically indicated, the right lower lobe mass may be amenable to CT-guided percutaneous biopsy. Of note, the patient is at increased risk for complication such as pneumothorax given the extensive emphysematous disease. 3. Solitary enlarged subcarinal lymph node. Differential considerations include reactive/infectious etiologies and korin metastasis. 4. No acute pulmonary embolus. 1. CT-guided lung biopsy. 06/02/[address]-guided chest tube placement. IMPRESSION: 1. CT guided chest tube placement for treatment of pneumothorax encountered during lung biopsy. 2. Successful CT-guided biopsy of left lung base nodule. US VENOUS LEG DUPLEX BILATERAL 05/30/2016 IMPRESSION: No deep venous thrombosis identified within either the left or right lower extremities. PROCEDURE: X-RAY CHEST, TWO VIEWS ([id number]) INDICATIONS: Follow up for Pneumothorax TECHNIQUE: 2 views of the chest were acquired. COMPARISON: [facility], CR, XR CHEST 1VW (PORTABLE), 06/05/2016, 11: 09. [facility], CR, XR CHEST 2VW, 06/03/2016, 11:16. [facility], CT, CT BX LUNG MEDIASTINUM, 06/02/2016, 8:51. FINDINGS: Surgical changes and devices: Right-sided pigtail chest tube is noted. Lungs and pleura: Trace apical right sided pneumothorax has resolved. Patchy opacities in the right lung base are stable compared to prior examination. Focal masslike a opacity in the periphery of the right lung base is stable.. Mediastinum: Mediastinal contours are normal. Heart size is normal. Bones and chest wall: No suspicious bony abnormalities. Soft tissues appear unremarkable. Subcutaneous air noted in the right chest wall soft tissues. IMPRESSION: Resolved trace right pneumothorax otherwise no change from prior exam. Continued radiographic surveillance to resolution is recommended. Dictated by: Sudhakar Jo RR Interpreted: Ruben Ramos MD on 06/06/2016 at 13 :09 Transcribed by: LENIN on 06/06/2016 at 13:10 Approved by: Ruben Ramos M.D. on 06/06/2016 at 17:12 Cardiac Echo Impressions . Echocardiogram Report: Interpretation Summary Left ventricular systolic function is moderately reduced with the ejection fraction estimated to be 40-45% but has significantly improved compared to the prior exam. There is mild to moderate global hypokinesis that is significantly improved compared to the previous study but remains worse in the distal anteroseptum, apex, and periapical sgemtns which are essentially akinetic and unchanged from the previous study. Assessment of diastolic parameters indicates a relaxation abnormality of the left ventricle, consistent with normal filling pressures, and is unchanged compared to the previous study. The right ventricle is normal in size and function and has markedly improved compared to the previous study. The right ventricular systolic pressure is estimated at 39 mmHg assuming a right atrial pressure of 3 mm Hg, and is likely significantly lower compared to the previous study. The left atrium is mildly dilated and has mildly increased in size since the prior echo exam. Right atrial size is normal and has significantly decreased in size. There is moderate mitral regurgitation that is unchanged compared to the previous study, and mild to moderate tricuspid regurgitation that has significantly improved compared to the previous study. The ascending aorta is at the upper limits of normal in size and unchanged compared to the previous study. There is no pleural effusion seen, suggesting resolution of the previously seen effusions on the previous study. Additional Diagnostics DATE COLLECTED:06/02/2016 16:33 SPECIMEN: Lung Biopsy CLINICAL HISTORY: RIGHT LUNG MASS 1). RIGHT LOWER LUNG MASS FINAL DIAGNOSIS: 1.BIOPSIES, RIGHT LOWER LUNG MASS: MINUTE FRAGMENTS OF PULMONARY TISSUE WITH DILATED AIR SPACES CONSISTENT WITH EMPHYSEMA. TWO FRAGMENTS OF PULMONARY TISSUE WITH PROMINENT NONSPECIFIC FIBROSIS. NEGATIVE FOR EVIDENCE OF NEOPLASM. GROSS DESCRIPTION: The specimen is received in one formalin filled container labeled with the patient's name, sublabeled "right lung mass" and consists of multiple white garcia tiny fragments of cylindrical shaped tissue which aggregate to 0.5 x 0.1 x 0.1 CM. The specimen is filtered and entirely submitted in one cassette. 06/02/2016 DAC MICRO DESCRIPTION: See diagnosis. Assessment & Plan Patient is a 75-year-old male admitted 05/28/16 with pneumonia/pulmonary hemorrhage. He was in acute respiratory failure that seems to have resolved overnight after admission. She continues to have hemoptysis. # Right side peripheral lung mass-a CT-guided needle biopsy was performed 2016. - Patient developed a postprocedure pneumothorax and had a chest tube placed - Lung biopsy report negative for neoplasm - I have asked pulmonary to continue to follow the patient and appreciate Dr. Castillo's input today. And the plan from a pulmonary standpoint is as follows : " - Chest x-ray 06/06/2016 shows resolved trace right pneumothorax - Tomorrow 06/07/2016 will start a water seal on the chest tube, and repeat chest x-ray approximately 8 hours later - If no evidence of continuing pneumothorax will remove chest tube 2016 followed by repeat chest x-ray 2-3 hours after to ensure resolution of pneumothorax" - Appreciate the pulmonary service follow-up and help # Hemoptysis-present on admission and persisting, - However, the hemoptysis has improved and has been minimal over the last 24 hours. # Pulmonary Hemorrhage/Pneumonia- seems to have stabilized with reversal of warfarin/anticoagulation. However, patient's emesis persisted until last 24 hours or so.. - Coumadin has been discontinued and will only resumed per pulmonary/Dhruv recommendation if needed - DVT/ +/-PE (int prob v/q) 01/18/16, Doppler/CT angiogram negative for clot/PE 05/30 - Levaquin has been discontinued - CT scan revealed a "mass" which is likely source of hemorrhage - Needle biopsy was for pathology results only and specimen was placed in formalin.. # Acute blood loss anemia Hgb remains stable - Corrected supratherapeutic INR with vitamin K given on 05/29/16 - INR 1.39 05/30, 1.12 05/31 # COPD Exacerbation/Pneumonia - IV Levaquin was given from 05/28-05/31/16, Levaquin was changed to 500mg by mouth q48 -06/03 and has subsequently been discontinued. - We will continue to taper prednisone decreasing from 40 mg daily to 30 mg daily started on 06/03/2016. We will decrease prednisone to 20 mg by mouth daily on 06/06/2016. - [facility] which is pretty much baseline 05/30/16 # HTN/CHF/Valvular Heart Disease and Cardiomyopathy - Suspect patient has hypertensive heart disease and unsure about the cause of his valvular disease - Continue his usual Cardiac medicines of losartan, metoprolol, Lasix. - Cautious IV fluid hydration was given - The BNP was 847. Patient does not seem clinically to be in overt heart failure, would use IV fluids cautiously # JG/Chronic Kidney Disease 3-JG resolved, IV fluids discontinued 05/31 -Creatinine was 1.64 05/29 -Creatinine is now 1. 21 and appears to have reached baseline # Thrombocytopenia improved - The patient's baseline platelet seemed to be around 90,000 historically - Today the platelet count has improved to 143,000. - Lovenox DVT prophylaxis is on hold due to the pulmonary hemorrhage and hemoptysis which is persisting. # Supratherapeutic INR -resolved 05/30/16, off anticoagulation 05/28/16 -In the setting of warfarin/Levaquin I will give vitamin K 2.5 mg by mouth 05/29. -INR 1.39 05/30, 1.12 05/31 # DVT/PE 02/01-patient is coming up on 6 months of therapy with there are ongoing issues risk of warfarin outweighs benefit at this point in time and will likely be discontinued. Pain Evaluation: Adequate Pain Control GI Prophylaxis: Proton Pump Inhibitor VTE Prophylaxis: Theraputic Anticoag with Warfarin VTE Mechanical Devices: Intermittant Pneumatic CD Resuscitation Status: CPR: Attempt Resuscitation Jose Cruz Carlson MD Jun 06, 2016 19:45
[2016-06-07] VITALS (12 sets, daily range): BP systolic 127–153; BP diastolic 61–71; PULSE 64–92; RESP 16–22; O2SAT 94–99
[2016-06-07] MEDS: 0.9% NaCl + KCl 20 mEq/L 1,000 ML IV SCH ×2 (04:46→18:36)
[2016-06-07] MEDS: Albuterol-Ipratropium 3 mL Inhalation Solution NEB SCH ×4 (05:59→20:26)
[2016-06-07] MEDS: FORMOTEROL FUMARATE INHALATION SCH ×2 (05:59→20:26)
--- NOTE | 2016-06-07 06:28 | NUR ---
Chest tube Patient's chest tube remained in place overnight, lower right lobe. No drainage during NOC shift. Connected to wall suction. Very slight bubbling in chamber during coughs. Patient has denied shortness of breath and pain through the night.
[2016-06-07 06:48] LABS: BASOPHILS % (AUTO) 0.1 % (0-3); EOSINOPHILS % (AUTO) 2.1 % (0-5); MONOCYTES % (AUTO) 7.8 % (4-12); Mean Corpuscular Hemoglobin 29.7 pg (27.0-35.0); Mean Corpuscular Volume 94.6 fL (81-100); NEUTROPHILS % (AUTO) 64.5 % (40-74); Platelet Count 162 bil/L (150-400)
[2016-06-07 07:07] LABS: Magnesium 2.1 mg/dL (1.6-2.6)
[2016-06-07] MEDS: Pantoprazole 40 mg ER24 Tablet PO SCH (08:19)
[2016-06-07] MEDS: Fluticasone 100 mCg Inhaler INHALATION SCH ×2 (08:19→21:31)
[2016-06-07] MEDS: MeTOProlol XL 50 mg ER24 Tablet PO SCH ×2 (08:20→21:31)
[2016-06-07] MEDS: predniSONE 20 mg Tablet PO SCH (08:20)
[2016-06-07] MEDS: Senna-Docusate 8.6-50 mg Tablet PO SCH (08:25)
--- NOTE | 2016-06-07 09:15 | NUR ---
EFRAIN signed Verbal signature from daughter via phone call. MIGUEL Recinos
--- NOTE | 2016-06-07 11:19 | DRSVH ---
PROCEDURE: CT CHEST WITH CONTRAST ([id number]) INDICATIONS: follow-up for right lung inflammatory mass TECHNIQUE: After the administration of intravenous contrast, 5 mm thick sections acquired from the pulmonary api wong to the posterior costophrenic angles. 7 mm thick coronal and sagittal MIP reformats were acquire d. For radiation dose reduction, the following was used: automated exposure control, adjustment of mA and/or kV according to patient size. COMPARISON: [facility], CT, CT ANGIO CHEST PE, 05/30/2016, 16:10. [facility] , CT, CT BX LUNG MEDIASTINUM, 06/02/2016, 8:51. FINDINGS: Image quality: Excellent. Lungs and pleura: The previously seen subpleural mass within the right lower lobe infralaterally is n ot significantly change in size, measuring roughly 48 mm anteroposterior by 36 mm transverse. Previou sly seen multilobular mass within the left lung base posteriorly measuring roughly 23 mm, is not sign ificantly changed. No change in 9 mm arcuate density within the left posterior lung base. There is se marnie emphysema with apical predominance, as before. There is decreased, moderate interstitial opacity within the right lung base diffusely. No pleural effusions or pneumothorax. Right-sided chest tube is present. Central and peripheral airways are patent and normal in caliber. Mediastinum: Heart size is normal. No pericardial effusion. No mediastinal or hilar adenopathy by size criteria. Thoracic aorta and central pulmonary arteries are normal in size. Esophagus is cathi l in caliber. No hiatal hernia. Bones and chest wall: No suspicious bony lesions. No vertebral body compression fractures. No axil thomas or supraclavicular adenopathy by size criteria. Thyroid gland is within normal limits. Abdomen: Visualized upper abdominal solid organs appear normal. Upper abdominal bowel loops are nor mal in caliber. IMPRESSION: 1. No change in bilateral lung base masses. 2. Decreased right lower lobe pneumonia. 3. Severe emphysema. 4. Right chest tube is present. No right pneumothorax. Dictated by: Young Matthew M.D. on 06/07/2016 at 11:13 Approved by: Young Matthew M.D. on 06/07/2016 at 11:18
--- NOTE | 2016-06-07 12:52 | DRSVH ---
PROCEDURE: X-RAY CHEST ONE VIEW, PORTABLE ([id number]) INDICATIONS: Confirm Pneumo resolution TECHNIQUE: One view of the chest was acquired. COMPARISON: [facility], CR, XR CHEST 1VW (PORTABLE), 06/05/2016, 11:09. FINDINGS: Surgical changes and devices: Stable positioning of right pleural drain. Lungs and pleura: Emphysematous changes redemonstrated in the right lung mass again noted. Right bas ilar patchy airspace opacity redemonstrated. Mediastinum: Mediastinal contours appear normal. Heart size is normal. Bones and chest wall: No suspicious bony lesions. Overlying soft tissues appear unremarkable. IMPRESSION: 1. Low position right pleural drain and no pneumothorax. 2. Right lower lobe lung mass. 3. Right basilar airspace opacity likely related to pneumonia. 4. Emphysematous changes redemonstrated. Dictated by: Sudhakar Jo [facility] Interpreted: Siena Choi MD on 06/07/2016 at 12:50 Transcribed by: JAQUAN on 06/07/2016 at 12:52 Approved by: Siena Choi MD, PhD on 06/07/2016 at 16:15
--- NOTE | 2016-06-07 15:57 | PCM.PNMED ---
Subjective Date of Service Jun 07, 2016 Subjective Pulmonology Consult: Attending physician Dr. Fabio Mcneil. Requesting Physician Dr. Powell Mr Hein is a 75 year old male with a past medical history of COPD, CHF with EF of ~23% and MR, DVT, Pulmonary hypertension and renal insufficiency presented to [facility] ED secondary to hemoptysis x 2 days. Pulmonology consult requested secondary to hemoptysis. Differential includes PE, barotrauma, underlying malignancy. Overnight: Uneventful night. Pt states he has no complaints and is in no pain. He is still in good spirits and is ready to go home. Denies KIM, N/V, SOB, CP, ABD pain. Exam Vital Signs Vital Sign - Last Date Time Temp Pulse Resp B/P Pulse Ox O2 Delivery O2 Flow Rate FiO2 06/07/16 13:51 36.3 84 18 153/62 94 Nasal Cannula 2.00 Intake and Output 06/06/16 06/06/16 06/07/16 Cumulative From/Thru 15:00 23:00 07:00 05/28/16 14:05 - 06/07/16 06:39 Intake Total 1952 ml 1471 ml 72443 ml Output Total 2240 ml 1600 ml 84532 ml Balance -288 ml -129 ml 734 ml Intake Oral 1074 ml 550 ml 23316 ml IV Total 878 ml 921 ml 72523 ml Output Urine Total 2210 ml 1600 ml 10487 ml Emesis 4 ml Chest Tube Drainage Total 75 ml Drainage Total 30 ml 120 ml # Voids 11 # Bowel Movements 3 1 12 Exam General: Sitting in bed side chair in no distress, awake and alert and mentating appropriately. HEENT: Normocephalic, atraumatic. External ears without defect. Pupils equal, round, and reactive to light and accommodation. Neck: No JVD. Cardiovascular: Regular rate and rhythm with no murmurs, rubs, or gallops appreciated. Pulmonary: Chest tube in place right flank. Right lower lobe crackles, diminished from yesterday. Other lung andrews clear to auscultation Abdomen:Soft, nontender, nondistended. Extremities: Finger clubbing, no cyanosis. No edema. Left index finger missing after second knuckle. Neurological: Cranial nerves grossly intact. Psychiatric: Normal mood and affect. Alert and oriented to person, place, and time. IVs and Medications Medications Reviewed: Medications were reviewed in detail Lab and Diagnostics Result Diagram: 06/07/1662406/07/16624 Microbiology Cultures are negative at 5 days. X-Rays, CTs and MRIs . X-RAY CHEST ONE VIEW, PORTABLE 05/28/2016 IMPRESSION: Right mid and lower lung patchy radiopacities suspicious for aspiration/infection superimposed on severe centrilobular emphysema. Short interval followup is recommended to ensure resolution of this finding and exclude underlying pulmonary pathology. X-RAY CHEST, TWO VIEWS 05/30/2016 IMPRESSION: 1. Mid right and lower lung diffuse interstitial opacities redemonstrated not significantly changed which may be related to aspiration/infection but pulmonary hemorrhage cannot be excluded. If indicated chest CT scan could be performed for further characterization. 2. Emphysematous changes redemonstrated. X-RAY CHEST, TWO VIEWS 06/03/2016 IMPRESSION: Trace apical right sided pneumothorax. X-RAY CHEST ONE VIEW, PORTABLE 06/05/2016 IMPRESSION: Resolved right pneumothorax and patchy opacity in the right lung base as well as focal opacity, stable compared to prior exam. Continued radiographic surveillance to resolution is recommended. X-RAY CHEST, TWO VIEWS 06/06/2016 IMPRESSION: Resolved trace right pneumothorax otherwise no change from prior exam. Continued radiographic surveillance to resolution is recommended. CT ANGIO CHEST PULMONARY EMBOLISM 05/30/2016 IMPRESSION: 1. Consolidative airspace opacity throughout the right lower lobe suspicious for aspiration/infection. Aspiration secondary to hemoptysis could also cause this appearance. 2. Discrete mass lesion within the lateral aspect of the right lower lobe. This finding is suspicious for a discrete neoplastic mass. Additionally, 2 spiculated lesions are present within the left lung base suspicious for neoplastic lesions. If clinically indicated, the right lower lobe mass may be amenable to CT-guided percutaneous biopsy. Of note, the patient is at increased risk for complication such as pneumothorax given the extensive emphysematous disease. 3. Solitary enlarged subcarinal lymph node. Differential considerations include reactive/infectious etiologies and korin metastasis. 4. No acute pulmonary embolus. 1. CT-guided lung biopsy. 06/02/[address]-guided chest tube placement. IMPRESSION: 1. CT guided chest tube placement for treatment of pneumothorax encountered during lung biopsy. 2. Successful CT-guided biopsy of left lung base nodule. US VENOUS LEG DUPLEX BILATERAL 05/30/2016 IMPRESSION: No deep venous thrombosis identified within either the left or right lower extremities. PROCEDURE: X-RAY CHEST, TWO VIEWS IMPRESSION: Resolved trace right pneumothorax otherwise no change from prior exam. Continued radiographic surveillance to resolution is recommended. Cardiac Echo Impressions . Echocardiogram Report: Interpretation Summary Left ventricular systolic function is moderately reduced with the ejection fraction estimated to be 40-45% but has significantly improved compared to the prior exam. There is mild to moderate global hypokinesis that is significantly improved compared to the previous study but remains worse in the distal anteroseptum, apex, and periapical sgemtns which are essentially akinetic and unchanged from the previous study. Assessment of diastolic parameters indicates a relaxation abnormality of the left ventricle, consistent with normal filling pressures, and is unchanged compared to the previous study. The right ventricle is normal in size and function and has markedly improved compared to the previous study. The right ventricular systolic pressure is estimated at 39 mmHg assuming a right atrial pressure of 3 mm Hg, and is likely significantly lower compared to the previous study. The left atrium is mildly dilated and has mildly increased in size since the prior echo exam. Right atrial size is normal and has significantly decreased in size. There is moderate mitral regurgitation that is unchanged compared to the previous study, and mild to moderate tricuspid regurgitation that has significantly improved compared to the previous study. The ascending aorta is at the upper limits of normal in size and unchanged compared to the previous study. There is no pleural effusion seen, suggesting resolution of the previously seen effusions on the previous study. Additional Diagnostics DATE COLLECTED:06/02/2016 16:33 SPECIMEN: Lung Biopsy CLINICAL HISTORY: RIGHT LUNG MASS 1). RIGHT LOWER LUNG MASS FINAL DIAGNOSIS: 1.BIOPSIES, RIGHT LOWER LUNG MASS: MINUTE FRAGMENTS OF PULMONARY TISSUE WITH DILATED AIR SPACES CONSISTENT WITH EMPHYSEMA. TWO FRAGMENTS OF PULMONARY TISSUE WITH PROMINENT NONSPECIFIC FIBROSIS. NEGATIVE FOR EVIDENCE OF NEOPLASM. GROSS DESCRIPTION: The specimen is received in one formalin filled container labeled with the patient's name, sublabeled "right lung mass" and consists of multiple white garcia tiny fragments of cylindrical shaped tissue which aggregate to 0.5 x 0.1 x 0.1 CM. The specimen is filtered and entirely submitted in one cassette. 06/02/2016 [facility] MICRO DESCRIPTION: See diagnosis. Assessment & Plan 75 male admitted 05/28/2016 with pneumonia/pulmonary hemorrhage. Pulmonology consult secondary to hemoptysis and mass found on CT. During needle biopsy patient had pneumothorax requiring addition to hospital stay. 1. Pneumothorax secondary to CT transthoracic fine-needle biopsy, requiring chest tube placement. - Chest x-ray 06/06/2016 shows resolved trace right pneumothorax, follow up CXR 06/07/2016 remains clear - Water seal started on the chest tube 06/07/2016 at 11:00, repeat CXR ordered and pending for 06/07/2016 at 19:30 - If no evidence of continuing pneumothorax will remove chest tube 06/08/2016 followed by repeat chest x-ray 2-3 hours after to ensure resolution of pneumothorax 2. Lung mass. - CT showed a mass which may be neoplastic in nature. - Pathology report received 06/06/2016 NEGATIVE FOR EVIDENCE OF NEOPLASM. - May need repeat biopsy 3. Hemoptysis. Resolved - CT showed no evidence of pulmonary embolism - Hemoptysis has resolved, patient states he has not coughed or coughed up blood in the last 24+ hours - Hemoptysis most likely secondary to barotrauma from chronic cough, with concomitant supratherapeutic INR on admission 4. COPD Exacerbation/Pneumonia - Patient finished Levaquin course - Prednisone taper now to 20 mg by mouth daily - Continue supplemental oxygen GI Prophylaxis: Proton Pump Inhibitor VTE Prophylaxis: Theraputic Anticoag with Warfarin VTE Mechanical Devices: Intermittant Pneumatic CD Resuscitation Status: CPR: Attempt Resuscitation Attending Statement The patient was seen and examined together with Dr. Merino on 06/07/2016 and I agree with the history, exam and plan as outlined in the note above. ROSALINDA MERINO DO Jun 07, 2016 15:57 Fabio Mcneil MD Jul 10, 2016 12:57
--- NOTE | 2016-06-07 20:00 | DRSVH ---
PROCEDURE: X-RAY CHEST ONE VIEW, PORTABLE ([id number]) INDICATIONS: Chest tube water seal monitoring TECHNIQUE: One view of the chest was acquired. COMPARISON: [facility], CT, CT BX LUNG MEDIASTINUM, 06/02/2016, 8:51. [facility], CR, XR CHEST 1VW (PORTABLE), 06/07/2016, 10:04. FINDINGS: Surgical changes and devices: Grossly unchanged position of right chest tube Lungs and pleura: No pleural effusions or pneumothorax. Patchy consolidative opacities in the right lung base are unchanged since earlier same day. Right lung base nodule is unchanged Mediastinum: Mediastinal contours appear normal. Heart size is normal. Bones and chest wall: No suspicious bony lesions. Overlying soft tissues appear unremarkable. IMPRESSION: No pneumothorax identified. Unchanged appearance of right chest tube. No interval change since earlier same day. Dictated by: Juan Flores M.D. on 06/07/2016 at 19:55 Approved by: Juan Flores M.D. on 06/07/2016 at 19:59
--- NOTE | 2016-06-07 21:22 | PCM.PNMED ---
Subjective Date of Service Jun 07, 2016 Subjective He has no new complaints. He is no longer having any significant hemoptysis. He remains in good spirits despite still having a chest tube. Exam Vital Signs Vital Sign - Last Date Time Temp Pulse Resp B/P Pulse Ox O2 Delivery O2 Flow Rate FiO2 06/07/16 20:28 84 20 99 Nasal Cannula 2.00 06/07/16 13:51 36.3 153/62 Intake and Output 06/06/16 06/06/16 06/07/16 Cumulative From/Thru 15:00 23:00 07:00 05/28/16 14:05 - 06/07/16 06:39 Intake Total 1952 ml 1471 ml 04932 ml Output Total 2240 ml 1600 ml 96310 ml Balance -288 ml -129 ml 734 ml Intake Oral 1074 ml 550 ml 32761 ml IV Total 878 ml 921 ml 98457 ml Output Urine Total 2210 ml 1600 ml 88759 ml Emesis 4 ml Chest Tube Drainage Total 75 ml Drainage Total 30 ml 120 ml # Voids 11 # Bowel Movements 3 1 12 Exam General: Patient is in no apparent distress sitting up in a bedside chair. HEENT: Head is atraumatic and normocephalic. Eyes: Pupils are equally round and reactive to light and accommodation. Extraocular muscles are intact. Sclera are white, anicteric. Subconjunctival mucosa is pink. Ears and nose are unremarkable. Oropharynx: There is no mucosal lesions, there is no thrush, there is no pharyngitis. Neck: Is supple, there are no nodes, or masses or tenderness. Chest: There is improved breath sounds again today on the right. The chest tube in right chest is intact and the site is unremarkable. Heart: Rate, rhythm is regular. There is no new murmur, rub or gallop. Abdomen: Good bowel sounds are present. Abdomen is soft, nontender, no organomegaly or masses were appreciated. Extremities: Are symmetrical and well perfused. There is no edema, there is no cellulitis, no rash. Neurologic: There are no focal neurological deficits. Cranial nerves II through XII are intact. There are no sensory or motor deficits. Psychiatric: Patients mood is calm and he shows no sign of agitation. Genital: Deferred Rectal: Deferred Lab and Diagnostics Result Diagram: 06/07/1662406/07/16624 Microbiology Cultures are negative at 5 days. X-Rays, CTs and MRIs . X-RAY CHEST ONE VIEW, PORTABLE 05/28/2016 IMPRESSION: Right mid and lower lung patchy radiopacities suspicious for aspiration/infection superimposed on severe centrilobular emphysema. Short interval followup is recommended to ensure resolution of this finding and exclude underlying pulmonary pathology. X-RAY CHEST, TWO VIEWS 05/30/2016 IMPRESSION: 1. Mid right and lower lung diffuse interstitial opacities redemonstrated not significantly changed which may be related to aspiration/infection but pulmonary hemorrhage cannot be excluded. If indicated chest CT scan could be performed for further characterization. 2. Emphysematous changes redemonstrated. X-RAY CHEST, TWO VIEWS 06/03/2016 IMPRESSION: Trace apical right sided pneumothorax. X-RAY CHEST ONE VIEW, PORTABLE 06/05/2016 IMPRESSION: Resolved right pneumothorax and patchy opacity in the right lung base as well as focal opacity, stable compared to prior exam. Continued radiographic surveillance to resolution is recommended. X-RAY CHEST, TWO VIEWS 06/06/2016 IMPRESSION: Resolved trace right pneumothorax otherwise no change from prior exam. Continued radiographic surveillance to resolution is recommended. CT ANGIO CHEST PULMONARY EMBOLISM 05/30/2016 IMPRESSION: 1. Consolidative airspace opacity throughout the right lower lobe suspicious for aspiration/infection. Aspiration secondary to hemoptysis could also cause this appearance. 2. Discrete mass lesion within the lateral aspect of the right lower lobe. This finding is suspicious for a discrete neoplastic mass. Additionally, 2 spiculated lesions are present within the left lung base suspicious for neoplastic lesions. If clinically indicated, the right lower lobe mass may be amenable to CT-guided percutaneous biopsy. Of note, the patient is at increased risk for complication such as pneumothorax given the extensive emphysematous disease. 3. Solitary enlarged subcarinal lymph node. Differential considerations include reactive/infectious etiologies and korin metastasis. 4. No acute pulmonary embolus. 1. CT-guided lung biopsy. 06/02/[address]-guided chest tube placement. IMPRESSION: 1. CT guided chest tube placement for treatment of pneumothorax encountered during lung biopsy. 2. Successful CT-guided biopsy of left lung base nodule. US VENOUS LEG DUPLEX BILATERAL 05/30/2016 IMPRESSION: No deep venous thrombosis identified within either the left or right lower extremities. PROCEDURE: X-RAY CHEST, TWO VIEWS IMPRESSION: Resolved trace right pneumothorax otherwise no change from prior exam. Continued radiographic surveillance to resolution is recommended. Cardiac Echo Impressions . Echocardiogram Report: Interpretation Summary Left ventricular systolic function is moderately reduced with the ejection fraction estimated to be 40-45% but has significantly improved compared to the prior exam. There is mild to moderate global hypokinesis that is significantly improved compared to the previous study but remains worse in the distal anteroseptum, apex, and periapical sgemtns which are essentially akinetic and unchanged from the previous study. Assessment of diastolic parameters indicates a relaxation abnormality of the left ventricle, consistent with normal filling pressures, and is unchanged compared to the previous study. The right ventricle is normal in size and function and has markedly improved compared to the previous study. The right ventricular systolic pressure is estimated at 39 mmHg assuming a right atrial pressure of 3 mm Hg, and is likely significantly lower compared to the previous study. The left atrium is mildly dilated and has mildly increased in size since the prior echo exam. Right atrial size is normal and has significantly decreased in size. There is moderate mitral regurgitation that is unchanged compared to the previous study, and mild to moderate tricuspid regurgitation that has significantly improved compared to the previous study. The ascending aorta is at the upper limits of normal in size and unchanged compared to the previous study. There is no pleural effusion seen, suggesting resolution of the previously seen effusions on the previous study. Additional Diagnostics DATE COLLECTED:06/02/2016 16:33 SPECIMEN: Lung Biopsy CLINICAL HISTORY: RIGHT LUNG MASS 1). RIGHT LOWER LUNG MASS FINAL DIAGNOSIS: 1.BIOPSIES, RIGHT LOWER LUNG MASS: MINUTE FRAGMENTS OF PULMONARY TISSUE WITH DILATED AIR SPACES CONSISTENT WITH EMPHYSEMA. TWO FRAGMENTS OF PULMONARY TISSUE WITH PROMINENT NONSPECIFIC FIBROSIS. NEGATIVE FOR EVIDENCE OF NEOPLASM. GROSS DESCRIPTION: The specimen is received in one formalin filled container labeled with the patient's name, sublabeled "right lung mass" and consists of multiple white garcia tiny fragments of cylindrical shaped tissue which aggregate to 0.5 x 0.1 x 0.1 CM. The specimen is filtered and entirely submitted in one cassette. 06/02/2016 [facility] MICRO DESCRIPTION: See diagnosis. Assessment & Plan Patient is a 75-year-old male admitted 05/28/16 with pneumonia/pulmonary hemorrhage. He was in acute respiratory failure that seems to have resolved overnight after admission. She continues to have hemoptysis. # Right side peripheral lung mass-a CT-guided needle biopsy was performed 2016. - Patient developed a postprocedure pneumothorax and had a chest tube placed - Lung biopsy report negative for neoplasm - I have asked pulmonary to continue to follow the patient and appreciate Dr. Castillo's input today. And the plan from a pulmonary standpoint is as follows : " - Chest x-ray 06/06/2016 shows resolved trace right pneumothorax - On 06/07/2016 will start a water seal on the chest tube, and repeat chest x-ray approximately 8 hours later - If no evidence of continuing pneumothorax will remove chest tube 2016 followed by repeat chest x-ray 2-3 hours after to ensure resolution of pneumothorax" - Appreciate the pulmonary service follow-up and help - Repeat CT scan shows "no change in bilateral lung base masses". Patient may need repeat biopsy. We will discuss with pulmonary service. # Hemoptysis-present on admission and persisted until within the last couple days, - However, the hemoptysis has improved and has been minimal over the last 38 hours. # Pulmonary Hemorrhage/Pneumonia- seems to have stabilized with reversal of warfarin/anticoagulation. However, patient's emesis persisted until last 24 hours or so.. - Coumadin has been discontinued and will only resumed per pulmonary/Dhruv recommendation if needed - DVT/ +/-PE (int prob v/q) 01/18/16, Doppler/CT angiogram negative for clot/PE 05/30 - Levaquin has been discontinued - CT scan revealed a "mass" which is likely source of hemorrhage - Needle biopsy was for pathology results only and specimen was placed in formalin.. - A repeat CT scan was performed today which showed: "IMPRESSION: 1. No change in bilateral lung base masses. 2. Decreased right lower lobe pneumonia. 3. Severe emphysema. 4. Right chest tube is present. No right pneumothorax". # Acute blood loss anemia Hgb remains stable - Corrected supratherapeutic INR with vitamin K given on 05/29/16 - INR 1.39 05/30, 1.12 05/31 # COPD Exacerbation/Pneumonia - IV Levaquin was given from 05/28-05/31/16, Levaquin was changed to 500mg by mouth q48 -06/03 and has subsequently been discontinued. - We will continue to taper prednisone decreasing from 40 mg daily to 30 mg daily started on 06/03/2016. We will decrease prednisone to 20 mg by mouth daily on 06/06/2016. - Continue Oxygen by [place] patient's on 2 L which is pretty much baseline 05/30/16 # HTN/CHF/Valvular Heart Disease and Cardiomyopathy - Suspect patient has hypertensive heart disease and unsure about the cause of his valvular disease - Continue his usual Cardiac medicines of losartan, metoprolol, Lasix. - Cautious IV fluid hydration was given - The BNP was 847. Patient does not seem clinically to be in overt heart failure, would use IV fluids cautiously # JG/Chronic Kidney Disease 3-JG resolved, IV fluids discontinued 05/31 -Creatinine was 1.64 05/29 -Creatinine is now 1.26 and appears to have reached baseline # Thrombocytopenia improved - The patient's baseline platelet seemed to be around 90,000 historically - Today the platelet count has improved to 162,000. - Lovenox DVT prophylaxis is on hold due to the pulmonary hemorrhage and hemoptysis. # Supratherapeutic INR -resolved 05/30/16, off anticoagulation 05/28/16 -In the setting of warfarin/Levaquin I will give vitamin K 2.5 mg by mouth 05/29. -INR 1.39 05/30, 1.12 05/31 # DVT/PE 02/01-patient is coming up on 6 months of therapy with there are ongoing issues risk of warfarin outweighs benefit at this point in time and will likely be discontinued. Pain Evaluation: Adequate Pain Control GI Prophylaxis: Proton Pump Inhibitor VTE Prophylaxis: Theraputic Anticoag with Warfarin VTE Mechanical Devices: Intermittant Pneumatic CD Resuscitation Status: CPR: Attempt Resuscitation Jose Cruz Carlson MD Jun 07, 2016 21:22
[2016-06-08] VITALS (8 sets, daily range): BP systolic 137–155; BP diastolic 64–73; PULSE 60–97; RESP 18–20; O2SAT 93–96
--- NOTE | 2016-06-08 05:18 | NUR ---
Respiration/Chest tube Pt states SOB "much better", breathing comfortably at rest, mild SOB when get OOB. Cough "a little bit blood" yesterday morning per pt,no hemoptysis overnight. Lung sounds improved, crackles mostly at right LL posteriorly. No wheezes or rubs. O2 2l per nc, SPO2 around 95%. Right chest tube water sealed yesterday, no bubbling with cough and deep breathing, dressing CDI. CXR at evening after water seal indicates no pneumothorax. Recheck CXR this morning has been ordered.
[2016-06-08 06:22] LABS: BASOPHILS % (AUTO) 0.3 % (0-3); EOSINOPHILS % (AUTO) 2.4 % (0-5); MONOCYTES % (AUTO) 11.5 % (4-12); Mean Corpuscular Hemoglobin 30.2 pg (27.0-35.0); Mean Corpuscular Volume 94.3 fL (81-100); NEUTROPHILS % (AUTO) 67.4 % (40-74); Platelet Count 156 bil/L (150-400)
[2016-06-08 06:52] LABS: Magnesium 2.2 mg/dL (1.6-2.6)
[2016-06-08] MEDS: Albuterol-Ipratropium 3 mL Inhalation Solution NEB SCH ×4 (07:58→19:31)
[2016-06-08] MEDS: FORMOTEROL FUMARATE INHALATION SCH ×2 (07:59→20:30)
[2016-06-08] MEDS: 0.9% NaCl + KCl 20 mEq/L 1,000 ML IV SCH ×2 (08:51→21:06)
[2016-06-08] MEDS: Pantoprazole 40 mg ER24 Tablet PO SCH (09:32)
[2016-06-08] MEDS: Fluticasone 100 mCg Inhaler INHALATION SCH ×2 (09:32→20:55)
[2016-06-08] MEDS: predniSONE 20 mg Tablet PO SCH (09:33)
[2016-06-08] MEDS: MeTOProlol XL 50 mg ER24 Tablet PO SCH ×2 (09:33→20:55)
[2016-06-08] MEDS: Senna-Docusate 8.6-50 mg Tablet PO SCH (09:34)
--- NOTE | 2016-06-08 10:43 | DRSVH ---
PROCEDURE: X-RAY CHEST ONE VIEW, PORTABLE ([id number]) INDICATIONS: Chest tube pneumo monitoring TECHNIQUE: One view of the chest was acquired. COMPARISON: [facility], CR, XR CHEST 1VW (PORTABLE), 06/07/2016, 19:17. FINDINGS: Surgical changes and devices: Grossly unchanged position of right chest tube Lungs and pleura: No pleural effusions or pneumothorax. Patchy consolidative opacities in the right lung base are unchanged since prior exam. Right lung base nodule is unchanged Mediastinum: Mediastinal contours appear normal. Heart size is normal. Bones and chest wall: No suspicious bony lesions. Overlying soft tissues appear unremarkable. IMPRESSION: Stable chest. Dictated by: Sudhakar Jo RRA Interpreted: Siena Choi MD on 06/08/2016 at 10:42 Transcribed by: JAQUAN on 06/08/2016 at 10:43 Approved by: Siena Choi MD, PhD on 06/08/2016 at 16:51
--- NOTE | 2016-06-08 13:32 | NUR ---
NUTRITION ASSESSMENT: ASSESS:75 YO male admitted for pulmonary hemorrhage and COPD exacerbation and Pneumonia. Pt had R sided peripheral lung mass s/p CT guided needle biopsy resulting in a pneumothorax which required chest tube placement. Chest tube may be able to be removed today. PMHx: CHF, COPD, tobacco and alcohol abuse, acute kidney injury, DVT bilateral LE. LABS: Reviewed. Glu 117, Alb 3.5. MEDS: Reviewed. GI: BM x 2 (06/08) CURRENT WT: 77.4 kg (05/28/16) DIET: General. PO intake 100%. EST. NEEDS: 2854-1378 kcals (25-30 kcals/kg BW), 75-116 g protein (1.0-1.5 g/kg BW) NUTRITION DIAGNOSIS: 1.) No nutritional diagnosis at this time. NUTRITION INTERVENTION: 1.) No nutritional intervention at this time. MONITOR / EVAL: PO intake, labs, nutritional status. Follow per low nutritional risk guidelines.
--- NOTE | 2016-06-08 13:47 | NUR ---
Social Work: Readiness for d/c Data: Pt is on day 11 of hospitalization. EMR reviewed, pt discussed in rounds. MD to consult with pulmonology. MD states pt likely to d/c in 1-2 days. [facility] will continue to follow. Assessment: Pt who is independent at baseline. Plan: Pt will d/c home via POV with daughter when medically stable, likely in 1-2 days per MD, with [facility], RN/PT/OT. [facility] will continue to follow. MIGUEL Recinos
--- NOTE | 2016-06-08 15:26 | PCM.PNMED ---
Subjective Date of Service Jun 08, 2016 Subjective Pulmonology Consult: Attending physician Dr. Fabio Mcneil. Requesting Physician Dr. Powell Mr Hein is a 75 year old male with a past medical history of COPD, CHF with EF of ~23% and MR, DVT, Pulmonary hypertension and renal insufficiency presented to [facility] ED secondary to hemoptysis x 2 days. Pulmonology consult requested secondary to hemoptysis. Differential includes PE, barotrauma, underlying malignancy. Overnight: Another uneventful night. Pt states he still has no complaints and is in no pain, but would like to leave the hospital. Denies KIM, N/V, SOB, CP, ABD pain or any pain. He did have some slight hemoptysis yesterday evening but none overnight. Exam Vital Signs Vital Sign - Last Date Time Temp Pulse Resp B/P Pulse Ox O2 Delivery O2 Flow Rate FiO2 06/08/16 12:00 84 20 94 Nasal Cannula 1.00 06/08/16 10:10 36.4 150/73 Intake and Output 06/07/16 06/07/16 06/08/16 Cumulative From/Thru 15:00 23:00 07:00 05/28/16 14:05 - 06/08/16 04:33 Intake Total 1900 ml 1720 ml 66132 ml Output Total 4100 ml 25572 ml Balance -2200 ml 1720 ml 254 ml Intake Oral 1900 ml 00114 ml IV Total 1720 ml 39721 ml Output Urine Total 4100 ml 57543 ml Emesis 4 ml Chest Tube Drainage Total 75 ml Drainage Total 120 ml # Voids 11 # Bowel Movements 2 14 Exam General: Sitting in bed side chair in no distress, awake and alert and mentating appropriately. Chest tube in place. HEENT: Normocephalic, atraumatic. External ears without defect. Pupils equal, round, and reactive to light and accommodation. Neck: No JVD. Cardiovascular: Regular rate and rhythm with no murmurs, rubs, or gallops appreciated. Pulmonary: Chest tube in place right flank. bandage intact Right lower lobe crackles. Other lung andrews clear to auscultation Abdomen:Soft, nontender, nondistended. Extremities: Finger clubbing, no cyanosis. No edema. Left index finger missing after second knuckle. Neurological: Cranial nerves grossly intact. Psychiatric: Normal mood and affect. Alert and oriented to person, place, and time. IVs and Medications Medications Reviewed: Medications were reviewed in detail Lab and Diagnostics Result Diagram: 06/08/16 0600 06/08/16 06 Microbiology Cultures are negative at 5 days. X-Rays, CTs and MRIs . X-RAY CHEST ONE VIEW, PORTABLE 05/28/2016 IMPRESSION: Right mid and lower lung patchy radiopacities suspicious for aspiration/infection superimposed on severe centrilobular emphysema. Short interval followup is recommended to ensure resolution of this finding and exclude underlying pulmonary pathology. X-RAY CHEST, TWO VIEWS 05/30/2016 IMPRESSION: 1. Mid right and lower lung diffuse interstitial opacities redemonstrated not significantly changed which may be related to aspiration/infection but pulmonary hemorrhage cannot be excluded. If indicated chest CT scan could be performed for further characterization. 2. Emphysematous changes redemonstrated. X-RAY CHEST, TWO VIEWS 06/03/2016 IMPRESSION: Trace apical right sided pneumothorax. X-RAY CHEST ONE VIEW, PORTABLE 06/05/2016 IMPRESSION: Resolved right pneumothorax and patchy opacity in the right lung base as well as focal opacity, stable compared to prior exam. Continued radiographic surveillance to resolution is recommended. X-RAY CHEST, TWO VIEWS 06/06/2016 IMPRESSION: Resolved trace right pneumothorax otherwise no change from prior exam. Continued radiographic surveillance to resolution is recommended. CT ANGIO CHEST PULMONARY EMBOLISM 05/30/2016 IMPRESSION: 1. Consolidative airspace opacity throughout the right lower lobe suspicious for aspiration/infection. Aspiration secondary to hemoptysis could also cause this appearance. 2. Discrete mass lesion within the lateral aspect of the right lower lobe. This finding is suspicious for a discrete neoplastic mass. Additionally, 2 spiculated lesions are present within the left lung base suspicious for neoplastic lesions. If clinically indicated, the right lower lobe mass may be amenable to CT-guided percutaneous biopsy. Of note, the patient is at increased risk for complication such as pneumothorax given the extensive emphysematous disease. 3. Solitary enlarged subcarinal lymph node. Differential considerations include reactive/infectious etiologies and korin metastasis. 4. No acute pulmonary embolus. 1. CT-guided lung biopsy. 06/02/[address]-guided chest tube placement. IMPRESSION: 1. CT guided chest tube placement for treatment of pneumothorax encountered during lung biopsy. 2. Successful CT-guided biopsy of left lung base nodule. US VENOUS LEG DUPLEX BILATERAL 05/30/2016 IMPRESSION: No deep venous thrombosis identified within either the left or right lower extremities. PROCEDURE: X-RAY CHEST, TWO VIEWS IMPRESSION: Resolved trace right pneumothorax otherwise no change from prior exam. Continued radiographic surveillance to resolution is recommended. Cardiac Echo Impressions . Echocardiogram Report: Interpretation Summary Left ventricular systolic function is moderately reduced with the ejection fraction estimated to be 40-45% but has significantly improved compared to the prior exam. There is mild to moderate global hypokinesis that is significantly improved compared to the previous study but remains worse in the distal anteroseptum, apex, and periapical sgemtns which are essentially akinetic and unchanged from the previous study. Assessment of diastolic parameters indicates a relaxation abnormality of the left ventricle, consistent with normal filling pressures, and is unchanged compared to the previous study. The right ventricle is normal in size and function and has markedly improved compared to the previous study. The right ventricular systolic pressure is estimated at 39 mmHg assuming a right atrial pressure of 3 mm Hg, and is likely significantly lower compared to the previous study. The left atrium is mildly dilated and has mildly increased in size since the prior echo exam. Right atrial size is normal and has significantly decreased in size. There is moderate mitral regurgitation that is unchanged compared to the previous study, and mild to moderate tricuspid regurgitation that has significantly improved compared to the previous study. The ascending aorta is at the upper limits of normal in size and unchanged compared to the previous study. There is no pleural effusion seen, suggesting resolution of the previously seen effusions on the previous study. Additional Diagnostics DATE COLLECTED:06/02/2016 16:33 SPECIMEN: Lung Biopsy CLINICAL HISTORY: RIGHT LUNG MASS 1). RIGHT LOWER LUNG MASS FINAL DIAGNOSIS: 1.BIOPSIES, RIGHT LOWER LUNG MASS: MINUTE FRAGMENTS OF PULMONARY TISSUE WITH DILATED AIR SPACES CONSISTENT WITH EMPHYSEMA. TWO FRAGMENTS OF PULMONARY TISSUE WITH PROMINENT NONSPECIFIC FIBROSIS. NEGATIVE FOR EVIDENCE OF NEOPLASM. GROSS DESCRIPTION: The specimen is received in one formalin filled container labeled with the patient's name, sublabeled "right lung mass" and consists of multiple white garcia tiny fragments of cylindrical shaped tissue which aggregate to 0.5 x 0.1 x 0.1 CM. The specimen is filtered and entirely submitted in one cassette. 06/02/2016 [facility] MICRO DESCRIPTION: See diagnosis. Assessment & Plan 75 male admitted 05/28/2016 with pneumonia/pulmonary hemorrhage. Pulmonology consult secondary to hemoptysis and mass found on CT. During needle biopsy patient had pneumothorax requiring addition to hospital stay. 1. Pneumothorax secondary to CT transthoracic fine-needle biopsy, requiring chest tube placement. - Chest x-ray 06/06/2016 shows resolved trace right pneumothorax, follow up CXR 06/07/2016 remains clear - Water seal started on the chest tube 06/07/2016 - F/U CXR did not show any evidence of pneumothorax. - Chest tube was clamped on 06/08/2016, but will remain in place as IR will be doing an additional biopsy tomorrow. 2. Lung mass. - CT showed a mass which may be neoplastic in nature. - Pathology report received 06/06/2016 NEGATIVE FOR EVIDENCE OF NEOPLASM. - Additional CT guided biopsy has been ordered for 06/09/2016. 3. Hemoptysis. Resolved - CT showed no evidence of pulmonary embolism - Hemoptysis has mostly resolved. One episode of bloody cough yesterday evening but this was minimal. - Hemoptysis most likely secondary to barotrauma from chronic cough, with concomitant supratherapeutic INR on admission 4. COPD Exacerbation/Pneumonia - Patient finished Levaquin course - Prednisone taper continues - Continue supplemental oxygen Total time spent 30 min GI Prophylaxis: Proton Pump Inhibitor VTE Prophylaxis: Theraputic Anticoag with Warfarin VTE Mechanical Devices: Intermittant Pneumatic CD Resuscitation Status: CPR: Attempt Resuscitation Attending Statement The patient was seen and examined together with Dr. Merino on 06/08/2016 and I agree with the history, exam and plan as outlined in the note above. ROSALINDA MERINO DO Jun 08, 2016 15:26 Fabio Mcneil MD Jul 10, 2016 13:07 # Acute blood loss anemia Hgb remains stable - Corrected supratherapeutic INR with vitamin K given on 05/29/16 - INR 1.39 05/30, 1.12 05/31 # COPD Exacerbation/Pneumonia - IV Levaquin was given from 05/28-05/31/16, Levaquin was changed to 500mg by mouth q48 -06/03 and has subsequently been discontinued. - We will continue to taper prednisone decreasing from 40 mg daily to 30 mg daily started on 06/03/2016. We will decrease prednisone to 20 mg by mouth daily on 06/06/2016. - Continue Oxygen by [place] patient's on 2 L which is pretty much baseline 05/30/16 # HTN/CHF/Valvular Heart Disease and Cardiomyopathy - Suspect patient has hypertensive heart disease and unsure about the cause of his valvular disease - Continue his usual Cardiac medicines of losartan, metoprolol, Lasix. - Cautious IV fluid hydration was given - The BNP was 847. Patient does not seem clinically to be in overt heart failure, would use IV fluids cautiously # JG/Chronic Kidney Disease 3-JG resolved, IV fluids discontinued 05/31 -Creatinine was 1.64 05/29 -Creatinine is now 1.26 and appears to have reached baseline # Thrombocytopenia improved - The patient's baseline platelet seemed to be around 90,000 historically - Today the platelet count has improved to 162,000. - Lovenox DVT prophylaxis is on hold due to the pulmonary hemorrhage and hemoptysis. # Supratherapeutic INR -resolved 05/30/16, off anticoagulation 05/28/16 -In the setting of warfarin/Levaquin I will give vitamin K 2.5 mg by mouth 05/29. -INR 1.39 05/30, 1.12 05/31 # DVT/PE 02/01-patient is coming up on 6 months of therapy with there are ongoing issues risk of warfarin outweighs benefit at this point in time and will likely be discontinued. GI Prophylaxis: Proton Pump Inhibitor VTE Prophylaxis: Theraputic Anticoag with Warfarin VTE Mechanical Devices: Intermittant Pneumatic CD Resuscitation Status: CPR: Attempt Resuscitation ROSALINDA MERINO DO Jun 08, 2016 15:26
--- NOTE | 2016-06-08 18:59 | NUR ---
Dayshift Pt sitting in chair for most of day. Comfortable, no c/o pain. Chest tube with water seal showing no bubbles. Later clamped per MD orders. No SOB episodes during shift. Pt steady and strong on feet. Cooperative with plan of care. Pt scheduled for Biopsy of Lung mass tomorrow. Will be NPO at midnight. Report given to NOC shift.
--- NOTE | 2016-06-08 23:43 | PCM.PNMED ---
Subjective Date of Service Jun 08, 2016 Subjective Patient is feeling okay. He has no new complaints. He remains in good spirits. Exam Vital Signs Vital Sign - Last Date Time Temp Pulse Resp B/P Pulse Ox O2 Delivery O2 Flow Rate FiO2 06/08/16 21:30 36.3 86 20 141/73 96 Nasal Cannula 1.00 Intake and Output 06/07/16 06/07/16 06/08/16 Cumulative From/Thru 15:00 23:00 07:00 05/28/16 14:05 - 06/08/16 05:00 Intake Total 1900 ml 1720 ml 36263 ml Output Total 4100 ml 61712 ml Balance -2200 ml 1720 ml 254 ml Intake Oral 1900 ml 70695 ml IV Total 1720 ml 73942 ml Output Urine Total 4100 ml 94124 ml Emesis 4 ml Chest Tube Drainage Total 75 ml Drainage Total 120 ml # Voids 11 # Bowel Movements 2 14 Exam General: Patient is in no apparent distress sitting up in a bedside chair. HEENT: Head is atraumatic and normocephalic. Eyes: Pupils are equally round and reactive to light and accommodation. Extraocular muscles are intact. Sclera are white, anicteric. Subconjunctival mucosa is pink. Ears and nose are unremarkable. Oropharynx: There is no mucosal lesions, there is no thrush, there is no pharyngitis. Neck: Is supple, there are no nodes, or masses or tenderness. Chest: There is improved breath sounds again today on the right. The chest tube in right chest is intact and the site is unremarkable. Heart: Rate, rhythm is regular. There is no new murmur, rub or gallop. Abdomen: Good bowel sounds are present. Abdomen is soft, nontender, no organomegaly or masses were appreciated. Extremities: Are symmetrical and well perfused. There is no edema, there is no cellulitis, no rash. Neurologic: There are no focal neurological deficits. Cranial nerves II through XII are intact. There are no sensory or motor deficits. Psychiatric: Patients mood is calm and he shows no sign of agitation. Genital: Deferred Rectal: Deferred Lab and Diagnostics Result Diagram: 06/08/16 0600 06/08/16 0600 Microbiology Cultures are negative at 5 days. X-Rays, CTs and MRIs . X-RAY CHEST ONE VIEW, PORTABLE 05/28/2016 IMPRESSION: Right mid and lower lung patchy radiopacities suspicious for aspiration/infection superimposed on severe centrilobular emphysema. Short interval followup is recommended to ensure resolution of this finding and exclude underlying pulmonary pathology. X-RAY CHEST, TWO VIEWS 05/30/2016 IMPRESSION: 1. Mid right and lower lung diffuse interstitial opacities redemonstrated not significantly changed which may be related to aspiration/infection but pulmonary hemorrhage cannot be excluded. If indicated chest CT scan could be performed for further characterization. 2. Emphysematous changes redemonstrated. X-RAY CHEST, TWO VIEWS 06/03/2016 IMPRESSION: Trace apical right sided pneumothorax. X-RAY CHEST ONE VIEW, PORTABLE 06/05/2016 IMPRESSION: Resolved right pneumothorax and patchy opacity in the right lung base as well as focal opacity, stable compared to prior exam. Continued radiographic surveillance to resolution is recommended. X-RAY CHEST, TWO VIEWS 06/06/2016 IMPRESSION: Resolved trace right pneumothorax otherwise no change from prior exam. Continued radiographic surveillance to resolution is recommended. CT ANGIO CHEST PULMONARY EMBOLISM 05/30/2016 IMPRESSION: 1. Consolidative airspace opacity throughout the right lower lobe suspicious for aspiration/infection. Aspiration secondary to hemoptysis could also cause this appearance. 2. Discrete mass lesion within the lateral aspect of the right lower lobe. This finding is suspicious for a discrete neoplastic mass. Additionally, 2 spiculated lesions are present within the left lung base suspicious for neoplastic lesions. If clinically indicated, the right lower lobe mass may be amenable to CT-guided percutaneous biopsy. Of note, the patient is at increased risk for complication such as pneumothorax given the extensive emphysematous disease. 3. Solitary enlarged subcarinal lymph node. Differential considerations include reactive/infectious etiologies and kroin metastasis. 4. No acute pulmonary embolus. 1. CT-guided lung biopsy. 06/02/[address]-guided chest tube placement. IMPRESSION: 1. CT guided chest tube placement for treatment of pneumothorax encountered during lung biopsy. 2. Successful CT-guided biopsy of left lung base nodule. US VENOUS LEG DUPLEX BILATERAL 05/30/2016 IMPRESSION: No deep venous thrombosis identified within either the left or right lower extremities. PROCEDURE: X-RAY CHEST, TWO VIEWS IMPRESSION: Resolved trace right pneumothorax otherwise no change from prior exam. Continued radiographic surveillance to resolution is recommended. Cardiac Echo Impressions . Echocardiogram Report: Interpretation Summary Left ventricular systolic function is moderately reduced with the ejection fraction estimated to be 40-45% but has significantly improved compared to the prior exam. There is mild to moderate global hypokinesis that is significantly improved compared to the previous study but remains worse in the distal anteroseptum, apex, and periapical sgemtns which are essentially akinetic and unchanged from the previous study. Assessment of diastolic parameters indicates a relaxation abnormality of the left ventricle, consistent with normal filling pressures, and is unchanged compared to the previous study. The right ventricle is normal in size and function and has markedly improved compared to the previous study. The right ventricular systolic pressure is estimated at 39 mmHg assuming a right atrial pressure of 3 mm Hg, and is likely significantly lower compared to the previous study. The left atrium is mildly dilated and has mildly increased in size since the prior echo exam. Right atrial size is normal and has significantly decreased in size. There is moderate mitral regurgitation that is unchanged compared to the previous study, and mild to moderate tricuspid regurgitation that has significantly improved compared to the previous study. The ascending aorta is at the upper limits of normal in size and unchanged compared to the previous study. There is no pleural effusion seen, suggesting resolution of the previously seen effusions on the previous study. Additional Diagnostics DATE COLLECTED:06/02/2016 16:33 SPECIMEN: Lung Biopsy CLINICAL HISTORY: RIGHT LUNG MASS 1). RIGHT LOWER LUNG MASS FINAL DIAGNOSIS: 1.BIOPSIES, RIGHT LOWER LUNG MASS: MINUTE FRAGMENTS OF PULMONARY TISSUE WITH DILATED AIR SPACES CONSISTENT WITH EMPHYSEMA. TWO FRAGMENTS OF PULMONARY TISSUE WITH PROMINENT NONSPECIFIC FIBROSIS. NEGATIVE FOR EVIDENCE OF NEOPLASM. GROSS DESCRIPTION: The specimen is received in one formalin filled container labeled with the patient's name, sublabeled "right lung mass" and consists of multiple white garcia tiny fragments of cylindrical shaped tissue which aggregate to 0.5 x 0.1 x 0.1 CM. The specimen is filtered and entirely submitted in one cassette. 06/02/2016 [facility] MICRO DESCRIPTION: See diagnosis. Assessment & Plan Patient is a 75-year-old male admitted 05/28/16 with pneumonia/pulmonary hemorrhage. He was in acute respiratory failure that seems to have resolved overnight after admission. She continues to have hemoptysis. # Right side peripheral lung mass-a CT-guided needle biopsy was performed 2016. - Patient developed a postprocedure pneumothorax and had a chest tube placed - Lung biopsy report negative for neoplasm - I have discussed case with interventional radiologist Dr. Matthew and ask him if he would perform another needle biopsy for more definitive diagnosis. He states that he will do so tomorrow with the chest tube remaining in place. - As the first biopsy was negative for neoplasm-added additional studies to be performed and an infectious source. I have ordered fungal cultures if the smear and AFB culture and fungal DNA probe and routine Gram stain and culture. - I have also asked Otilio Oshea of infectious diseases who the patient and he will do so tomorrow. - I appreciate all consultants help. # Hemoptysis-present on admission and persisted until within the last couple days, - However, the hemoptysis has improved and has been minimal over the last 38 hours. # Pulmonary Hemorrhage/Pneumonia- seems to have stabilized with reversal of warfarin/anticoagulation. However, patient's emesis persisted until last 24 hours or so.. - Coumadin has been discontinued and will only resumed per pulmonary/Dhruv recommendation if needed - DVT/ +/-PE (int prob v/q) 01/18/16, Doppler/CT angiogram negative for clot/PE 05/30 - Levaquin has been discontinued - CT scan revealed a "mass" which is likely source of hemorrhage - Needle biopsy was for pathology results only and specimen was placed in formalin.. - A repeat CT scan was performed 10 days after the first one which showed: "IMPRESSION: 1. No change in bilateral lung base masses. 2. Decreased right lower lobe pneumonia. 3. Severe emphysema. 4. Right chest tube is present. No right pneumothorax". # Acute blood loss anemia Hgb remains stable - Corrected supratherapeutic INR with vitamin K given on 05/29/16 - INR 1.39 05/30, 1.12 05/31 # COPD Exacerbation/Pneumonia - IV Levaquin was given from 05/28-05/31/16, Levaquin was changed to 500mg by mouth q48 -06/03 and has subsequently been discontinued. - We will continue to taper prednisone decreasing from 40 mg daily to 30 mg daily started on 06/03/2016. We will decrease prednisone to 20 mg by mouth daily on 06/06/2016. - Continue Oxygen by [place] patient's on 2 L which is pretty much baseline 05/30/16 # HTN/CHF/Valvular Heart Disease and Cardiomyopathy - Suspect patient has hypertensive heart disease and unsure about the cause of his valvular disease - Continue his usual Cardiac medicines of losartan, metoprolol, Lasix. - Cautious IV fluid hydration was given - The BNP was 847. Patient does not seem clinically to be in overt heart failure, would use IV fluids cautiously # JG/Chronic Kidney Disease 3-JG resolved, IV fluids discontinued 05/31 -Creatinine was 1.64 05/29 -Creatinine is now 1.26 and appears to have reached baseline # Thrombocytopenia improved - The patient's baseline platelet seemed to be around 90,000 historically - Today the platelet count has improved to 162,000. - Lovenox DVT prophylaxis is on hold due to the pulmonary hemorrhage and hemoptysis. # Supratherapeutic INR -resolved 05/30/16, off anticoagulation 05/28/16 -In the setting of warfarin/Levaquin I will give vitamin K 2.5 mg by mouth 05/29. -INR 1.39 05/30, 1.12 05/31 # DVT/PE 02/01-patient is coming up on 6 months of therapy with there are ongoing issues risk of warfarin outweighs benefit at this point in time and will likely be discontinued. Disposition: Patient will likely he will go home after he safely has a needle biopsy of one of his 3 lung masses and his chest tube was able to be removed. Dr. Ibrahim will follow in a.m. Pain Evaluation: Adequate Pain Control GI Prophylaxis: Proton Pump Inhibitor VTE Prophylaxis: Theraputic Anticoag with Warfarin VTE Mechanical Devices: Intermittant Pneumatic CD Resuscitation Status: CPR: Attempt Resuscitation Jose Cruz Carlson MD Jun 08, 2016 23:43
[2016-06-09] VITALS (11 sets, daily range): BP systolic 99–136; BP diastolic 53–68; PULSE 60–88; RESP 16–20; O2SAT 84–97
--- NOTE | 2016-06-09 03:58 | NUR ---
NOC shift note Patient was cooperative with care, pleasant with staff. Denies pain. Chest tube insertion site remains secured. Patient aware of NPO status at midnight. Uneventful night. Call light within reach, intentional rounding in place.
[2016-06-09 06:35] LABS: BASOPHILS % (AUTO) 0.1 % (0-3); EOSINOPHILS % (AUTO) 1.9 % (0-5); MONOCYTES % (AUTO) 11.2 % (4-12); Mean Corpuscular Hemoglobin 30.2 pg (27.0-35.0); Mean Corpuscular Volume 94.7 fL (81-100); Platelet Count 160 bil/L (150-400)
[2016-06-09 06:53] LABS: INR 0.97 ratio
[2016-06-09 07:05] LABS: Magnesium 2.1 mg/dL (1.6-2.6)
[2016-06-09] MEDS: Albuterol-Ipratropium 3 mL Inhalation Solution NEB SCH ×4 (08:01→21:10)
[2016-06-09] MEDS: FORMOTEROL FUMARATE INHALATION SCH ×2 (08:02→21:10)
--- NOTE | 2016-06-09 09:29 | PCM.PNMED ---
Subjective Date of Service Jun 09, 2016 Subjective - Pt seen and examined this morning. He is AAO x 3. - States that he is feeling better than yesterday. - c/o mild shortness of breath. - Denies any chest pain. Exam Vital Signs Vital Sign - Last Date Time Temp Pulse Resp B/P Pulse Ox O2 Delivery O2 Flow Rate FiO2 06/09/16 08:00 88 20 96 Nasal Cannula 1.00 06/09/16 04:34 36.5 108/61 Intake and Output 06/08/16 06/08/16 06/09/16 Cumulative From/Thru 15:00 23:00 07:00 05/28/16 14:05 - 06/09/16 06:55 Intake Total 715 ml 2531 ml 878 ml 08162 ml Output Total 1500 ml 1750 ml 750 ml 15950 ml Balance -785 ml 781 ml 128 ml 378 ml Intake Oral 715 ml 1476 ml 100 ml 17500 ml IV Total 1055 ml 778 ml 25920 ml Output Urine Total 1500 ml 1750 ml 750 ml 22289 ml Emesis 4 ml Chest Tube Drainage Total 75 ml Drainage Total 120 ml # Voids 11 # Bowel Movements 2 1 17 Exam General: Patient is in no apparent distress sitting up in a bedside chair. HEENT: Head is atraumatic and normocephalic. Eyes: Pupils are equally round and reactive to light and accommodation. Extraocular muscles are intact. Sclera are white, anicteric. Subconjunctival mucosa is pink. Ears and nose are unremarkable. Oropharynx: There is no mucosal lesions, there is no thrush, there is no pharyngitis. Neck: Is supple, there are no nodes, or masses or tenderness. Chest: There is improved breath sounds again today on the right. The chest tube in right chest is intact and the site is unremarkable. Heart: Rate, rhythm is regular. There is no new murmur, rub or gallop. Abdomen: Good bowel sounds are present. Abdomen is soft, nontender, no organomegaly or masses were appreciated. Extremities: Are symmetrical and well perfused. There is no edema, there is no cellulitis, no rash. Neurologic: There are no focal neurological deficits. Cranial nerves II through XII are intact. There are no sensory or motor deficits. Psychiatric: Patients mood is calm and he shows no sign of agitation. IVs and Medications Medications Reviewed: Medications were reviewed in detail Lab and Diagnostics Result Diagram: 06/09/1661606/09/16616 Microbiology Cultures are negative at 5 days. X-Rays, CTs and MRIs . X-RAY CHEST ONE VIEW, PORTABLE 05/28/2016 IMPRESSION: Right mid and lower lung patchy radiopacities suspicious for aspiration/infection superimposed on severe centrilobular emphysema. Short interval followup is recommended to ensure resolution of this finding and exclude underlying pulmonary pathology. X-RAY CHEST, TWO VIEWS 05/30/2016 IMPRESSION: 1. Mid right and lower lung diffuse interstitial opacities redemonstrated not significantly changed which may be related to aspiration/infection but pulmonary hemorrhage cannot be excluded. If indicated chest CT scan could be performed for further characterization. 2. Emphysematous changes redemonstrated. X-RAY CHEST, TWO VIEWS 06/03/2016 IMPRESSION: Trace apical right sided pneumothorax. X-RAY CHEST ONE VIEW, PORTABLE 06/05/2016 IMPRESSION: Resolved right pneumothorax and patchy opacity in the right lung base as well as focal opacity, stable compared to prior exam. Continued radiographic surveillance to resolution is recommended. X-RAY CHEST, TWO VIEWS 06/06/2016 IMPRESSION: Resolved trace right pneumothorax otherwise no change from prior exam. Continued radiographic surveillance to resolution is recommended. CT ANGIO CHEST PULMONARY EMBOLISM 05/30/2016 IMPRESSION: 1. Consolidative airspace opacity throughout the right lower lobe suspicious for aspiration/infection. Aspiration secondary to hemoptysis could also cause this appearance. 2. Discrete mass lesion within the lateral aspect of the right lower lobe. This finding is suspicious for a discrete neoplastic mass. Additionally, 2 spiculated lesions are present within the left lung base suspicious for neoplastic lesions. If clinically indicated, the right lower lobe mass may be amenable to CT-guided percutaneous biopsy. Of note, the patient is at increased risk for complication such as pneumothorax given the extensive emphysematous disease. 3. Solitary enlarged subcarinal lymph node. Differential considerations include reactive/infectious etiologies and korin metastasis. 4. No acute pulmonary embolus. 1. CT-guided lung biopsy. 06/02/[address]-guided chest tube placement. IMPRESSION: 1. CT guided chest tube placement for treatment of pneumothorax encountered during lung biopsy. 2. Successful CT-guided biopsy of left lung base nodule. US VENOUS LEG DUPLEX BILATERAL 05/30/2016 IMPRESSION: No deep venous thrombosis identified within either the left or right lower extremities. PROCEDURE: X-RAY CHEST, TWO VIEWS IMPRESSION: Resolved trace right pneumothorax otherwise no change from prior exam. Continued radiographic surveillance to resolution is recommended. Cardiac Echo Impressions . Echocardiogram Report: Interpretation Summary Left ventricular systolic function is moderately reduced with the ejection fraction estimated to be 40-45% but has significantly improved compared to the prior exam. There is mild to moderate global hypokinesis that is significantly improved compared to the previous study but remains worse in the distal anteroseptum, apex, and periapical sgemtns which are essentially akinetic and unchanged from the previous study. Assessment of diastolic parameters indicates a relaxation abnormality of the left ventricle, consistent with normal filling pressures, and is unchanged compared to the previous study. The right ventricle is normal in size and function and has markedly improved compared to the previous study. The right ventricular systolic pressure is estimated at 39 mmHg assuming a right atrial pressure of 3 mm Hg, and is likely significantly lower compared to the previous study. The left atrium is mildly dilated and has mildly increased in size since the prior echo exam. Right atrial size is normal and has significantly decreased in size. There is moderate mitral regurgitation that is unchanged compared to the previous study, and mild to moderate tricuspid regurgitation that has significantly improved compared to the previous study. The ascending aorta is at the upper limits of normal in size and unchanged compared to the previous study. There is no pleural effusion seen, suggesting resolution of the previously seen effusions on the previous study. Additional Diagnostics DATE COLLECTED:06/02/2016 16:33 SPECIMEN: Lung Biopsy CLINICAL HISTORY: RIGHT LUNG MASS 1). RIGHT LOWER LUNG MASS FINAL DIAGNOSIS: 1.BIOPSIES, RIGHT LOWER LUNG MASS: MINUTE FRAGMENTS OF PULMONARY TISSUE WITH DILATED AIR SPACES CONSISTENT WITH EMPHYSEMA. TWO FRAGMENTS OF PULMONARY TISSUE WITH PROMINENT NONSPECIFIC FIBROSIS. NEGATIVE FOR EVIDENCE OF NEOPLASM. GROSS DESCRIPTION: The specimen is received in one formalin filled container labeled with the patient's name, sublabeled "right lung mass" and consists of multiple white garcia tiny fragments of cylindrical shaped tissue which aggregate to 0.5 x 0.1 x 0.1 CM. The specimen is filtered and entirely submitted in one cassette. 06/02/2016 [facility] MICRO DESCRIPTION: See diagnosis. Assessment & Plan 75-year-old male admitted 05/28/16 with pneumonia/pulmonary hemorrhage. He was in acute respiratory failure that seems to have resolved overnight after admission. She continues to have hemoptysis. # Right side peripheral lung mass-a CT-guided needle biopsy was performed 2016. - Patient developed a postprocedure pneumothorax and had a chest tube placed - Lung biopsy report negative for neoplasm - Dr. Matthew is planning to perform another needle biopsy for more definitive diagnosis possible today with the chest tube remaining in place. - As the first biopsy was negative for neoplasm-added additional studies to be performed and an infectious source. - Pending ID evaluation # Hemoptysis-present on admission and persisted until within the last couple days, - However, the hemoptysis has improved and has been minimal over the last 38 hours. # Pulmonary Hemorrhage/Pneumonia- seems to have stabilized with reversal of warfarin/anticoagulation. However, patient's emesis persisted until last 24 hours or so.. - Coumadin has been discontinued and will only resumed per pulmonary/Dhruv recommendation if needed - DVT/ +/-PE (int prob v/q) 01/18/16, Doppler/CT angiogram negative for clot/PE 05/30 - Levaquin has been discontinued - CT scan revealed a "mass" which is likely source of hemorrhage - Needle biopsy was for pathology results only and specimen was placed in formalin.. - A repeat CT scan was performed 10 days after the first one which showed: "1. No change in bilateral lung base masses. 2. Decreased right lower lobe pneumonia.3. Severe emphysema.4. Right chest tube is present. No right pneumothorax". # Acute blood loss anemia Hgb remains stable - Corrected supratherapeutic INR with vitamin K given on 05/29/16 - INR 1.39 05/30, 1.12 05/31 # COPD Exacerbation/Pneumonia - IV Levaquin was given from 05/28-05/31/16, Levaquin was changed to 500mg by mouth q48 -06/03 and has subsequently been discontinued. - We will continue to taper prednisone decreasing from 40 mg daily to 30 mg daily started on 06/03/2016. We will decrease prednisone to 20 mg by mouth daily on 06/06/2016. - Continue Oxygen by MI patient's on 2 L which is pretty much baseline 05/30/16 # HTN/CHF/Valvular Heart Disease and Cardiomyopathy - Suspect patient has hypertensive heart disease and unsure about the cause of his valvular disease - Continue his usual Cardiac medicines of losartan, metoprolol, Lasix. - Cautious IV fluid hydration was given - The BNP was 847. Patient does not seem clinically to be in overt heart failure, would use IV fluids cautiously # JG/Chronic Kidney Disease 3-JG resolved, IV fluids discontinued 05/31 -Creatinine was 1.64 on 05/29 - Creatinine today is 1.06 and is stable since past 5 days # Thrombocytopenia improved - The patient's baseline platelet seemed to be around 90,000 historically - Today the platelet count has improved to 160,000. - Lovenox DVT prophylaxis is on hold due to the pulmonary hemorrhage and hemoptysis. # Supratherapeutic INR -resolved 05/30/16, off anticoagulation 05/28/16 -In the setting of warfarin/Levaquin I will give vitamin K 2.5 mg by mouth 05/29. -INR 1.39 05/30, 1.12 05/31 # DVT/PE 02/01-patient is coming up on 6 months of therapy with there are ongoing issues risk of warfarin outweighs benefit at this point in time and will likely be discontinued. Disposition: Patient will likely he will go home in 2 - 3 days after he safely has a needle biopsy of one of his 3 lung masses and his chest tube was able to be removed. GI Prophylaxis: Proton Pump Inhibitor VTE Prophylaxis: Theraputic Anticoag with Warfarin VTE Mechanical Devices: Intermittant Pneumatic CD Resuscitation Status: CPR: Attempt Resuscitation Bakari Ibrahim MD Jun 09, 2016 09:29
[2016-06-09] MEDS ORDERED: fentaNYL-PF 50 mCg/mL 2 mL Inj ONE (12:04)
--- NOTE | 2016-06-09 12:41 | NUR ---
Off to CT Pt off unit for lung bx. Picked up by CT, on a stretcher. Pt denied pain. Addendum: 06/09/16 at 1344 by BOBY NAVA RN Pt returned at 1335. Denies pain. A&O. LICO from procedure here to f/u post procedure. Lunch ordered for pt.
--- NOTE | 2016-06-09 13:49 | DRSVH ---
PROCEDURE: CT-GUIDED BIOPSY OF THE LUNG OR MEDIASTINUM ([id number]) Sedation analgesia for 30 minutes. INDICATIONS: Biopsy of lung mass TECHNIQUE: The indications, alternatives, benefits, risks, and possible complications of the procedure were comm unicated to the patient. Informed written consent from the patient was obtained and placed in the art. Continuous EKG and hemodynamic monitoring was started by trained personnel. For radiation dose reduction, the following was used: automated exposure control, adjustment of mA and/or kV according to patient size. The patient was brought to the CT suite and sample coordinator spiral CT imaging was performed with localization g rid. The appropriate site for percutaneous access to the biopsy target was marked, was prepped and d raped sterilely, and was infused with local anaesthesia. Under CT guidance, a core biopsy trocar and needle set was advanced to the biopsy target, and specimen(s) were obtained. The trocar and needle were then removed, a small pneumothorax was evacuated through the pre-existing chest tube, and the pa tient was returned to the floor. COMPARISON: [facility], CT, CT CHEST W CON, 06/07/2016, 10:32. [facility], C T, CT BX LUNG MEDIASTINUM, 06/02/2016, 8:51. FINDINGS: Biopsy site: Right lower lobe nodule Needle: 20 gauge biopsy needle with introducer trocar. Number of passes: 4 Medications: 1% lidocaine for local anaesthesia. IV Fentanyl and Versed for conscious sedation for 30 minutes (see nursing record). Complications: None. IMPRESSION: Successful CT-guided biopsy of right lung base nodule. Dictated by: Young Matthew M.D. on 06/09/2016 at 13:47 Approved by: Young Matthew M.D. on 06/09/2016 at 13:48
[2016-06-09] MEDS: Pantoprazole 40 mg ER24 Tablet PO SCH (13:56)
[2016-06-09] MEDS: predniSONE 20 mg Tablet PO SCH (13:57)
[2016-06-09] MEDS: MeTOProlol XL 50 mg ER24 Tablet PO SCH ×2 (13:58→19:53)
[2016-06-09] MEDS: Fluticasone 100 mCg Inhaler INHALATION SCH ×2 (13:58→19:53)
[2016-06-09] MEDS: Senna-Docusate 8.6-50 mg Tablet PO SCH (13:59)
--- NOTE | 2016-06-09 15:22 | PROG NOTE ---
[address] [address] PROGRESS NOTE PATIENT: Enriqueta CERVANTES : 1940 MR#: [id number] ADMIT: 05/28/2016 JOB ID: [id number] DATE: 06/09/2016 PULMONARY PROGRESS NOTE: The patient is a 75-year-old man seen in followup for lung mass suspected malignancy and emphysema. INTERVAL HISTORY: Recall that the patient had attempted biopsy of the lung mass last week though was complicated by a pneumothorax and the pathology was nondiagnostic. A repeat biopsy was done today with pigtail chest tube still in place. The patient denies any significant chest pain, shortness of breath, cough. REVIEW OF SYSTEMS: As above. PHYSICAL EXAMINATION: Vital signs reviewed. Temperature 36.5, pulse 72, respirations 20, BP 136/67, sats 94% on 1 L nasal cannula. General: Lying in bed. Alert, comfortable, in no distress. Chest is clear to auscultation. He has a right-sided chest tube that is to water seal. No suction. No air leak and no respiratory variation seen. LABORATORIES: Reviewed. ASSESSMENT AND RECOMMENDATIONS: 1. Right lower lobe lung mass. 2. Iatrogenic pneumothorax. 3. Emphysema. This 75-year-old gentleman with severe emphysema has a lung mass suspicious for malignancy that was attempted to be biopsied last week and resulted in a pneumothorax and no diagnosis on path. A repeat attempt was made today and path will be pending I suspect until Sunday or Sunday of next week. I ordered a postprocedure chest x-ray to ensure pneumothorax has not reaccumulated, especially because his chest tube is only to water seal. If there is no pneumothorax, then we can leave the tube to water seal, but if there is any recurrent pneumothorax, then we should put the chest tube back to suction. We also have a repeat chest x-ray tomorrow morning to follow up on the same issue. I am available for any questions but may not see the patient this weekend if there is no acute problems.
--- NOTE | 2016-06-09 16:39 | CONS ---
[address] [address] CONSULTATION REPORT PATIENT: Enriqueta CERVANTES : 1940 MR#: [id number] ADMIT: 05/28/2016 JOB ID: [id number] DATE OF SERVICE: 06/09/2016 INFECTIOUS DISEASE CONSULTATION: I thank Dr. Jesus Carlson for this consult. REASON FOR CONSULTATION: Pulmonary nodules of unknown etiology associated with hemoptysis. HISTORY OF PRESENT ILLNESS: The patient is a delightful 75-year-old gentleman whom I had a chance to meet back at the end of December 2015. At that time, he has basically been evaluated at the [facility] for newly discovered heart failure and COPD. He was started on medicines but developed more shortness of breath and ended coming to our hospital with congestive heart failure, COPD, renal failure and hepatic injury, which was likely due to his underlying CHF and the medicines that were perhaps overly aggressively prescribed to lower that blood pressure. During that admission, I was asked to see whether I thought he had any infection and I thought not. Among other things, I got a Strongyloides antibody as he had grown up in [facility] but this turned out to be negative and the patient was subsequently discharged without any proof of any infection. The patient is readmitted at this time because of hemoptysis which started a couple weeks ago and was associated with night sweats, but not fever or chills. The patient underwent CT scanning, which showed pulmonary nodules which were more prominent on the right than the left as well as increased carinal lymph nodes. Given his extensive smoking history, this suggested lung malignancy and the patient underwent a lung biopsy to establish the diagnosis of lung carcinoma. The biopsy surprisingly came back negative, however, which led to reconsideration of a possible infection and another needle biopsy was done just today of the right lung. We have been asked what tests should be properly ordered for this and to followup on the tests to rule out infection. The patient tells us that prior to this readmission which occurred basically back on the , more than one week ago, that he had been free of fevers or chills. He reports the sudden onset of hemoptysis for a few days prior to that admission in association with some slowly and progressively increasing shortness of breath. The patient had little else in the way of symptomatology, and denied fevers or chills. He says he tells us that he has been on and off antibiotics over the past six months since he started getting back involved with medical care after a 50 year hiatus not seeing any doctor. He states he has been diagnosed with pneumonia several times and has received oral antibiotics with good results and has actually gained some weight, and started to feel a bit better. He was also discovered during the last few months to have a DVT and was started on some Coumadin which he has been continuing. The renal failure that had been a problem in late December and early January last year has basically resolved and the patient has remained off alcohol and cigarettes the past six months. PAST MEDICAL HISTORY: 1. Organic heart disease: a. Congestive heart failure. b. Severe mitral and tricuspid regurg. 2. COPD. 3. History of severe renal injury December 2015 which has improved. 4. DVT bilateral lower extremity history. 5. Chronic renal insufficiency. SOCIAL HISTORY: The patient was a heavy alcohol consumer until December 2015 with 10-20 cans of beer a day for many decades. He was also a heavy smoker until December 2015. He is now retired but used to work in the [employer]. He was born in [place] but has not been back in decades. FAMILY HISTORY: Negative for tuberculosis in all first-degree relatives. There is a strong family history of diabetes. REVIEW OF SYSTEMS: Was done. The patient, at this point, has no headache, no visual change, no sore throat. His hemoptysis is essentially resolved here in the hospital. The patient also reports that his night sweats, which was his other main complaint prior to admission, have basically resolved. He has had no chest pain. No nausea, vomiting, diarrhea, dysuria. No weight loss. The patient has noted edema of the lower extremities up to the knee. Remainder of the review of systems negative. PHYSICAL EXAMINATION: Reveals an elderly gentleman who appears healthier than when I saw him on January 17 last year when he had multiorgan failure. He has been afebrile throughout this admission. Temperature 36.4, pulse 80, respiratory rate 18, blood pressure 99/53, saturating 91% on 1 L. He is awake, alert, in no acute distress. Eyes without conjunctivitis. No scleral icterus. Oral cavity without thrush or pharyngitis. No cervical or supraclavicular adenopathy. Lungs: Reasonably clear with some diminished air flow bilaterally. Cardiac tones: Regular rate and rhythm with a notable murmur. Abdomen: No hepatosplenomegaly. Does not have a [place] catheter. The patient is neurologically intact. He is able to walk without evidence of any motor deficit. He does have edema up to the knees bilaterally which is 3+ edema up to the knees bilaterally. No skin breakdown. No evidence of cellulitis. No evidence of neuropathy. Also notable is the fact he has a chest tube on the right side following his biopsy earlier today. LABORATORIES: Include a white count was 14,000 on admission and then consistently normal every day since. Currently 8300. Hematocrit is 30 and creatinine 1.06. LFTs normal. Albumin 3.4. Urinalysis not done during this admission. Hep C and Strongyloides antibodies were done during his prior admission. They were normal. Micro studies from his last admission were negative except for a urine that grew E coli. During this admission, we have negative blood cultures and a pending AFB fungal and routine cultures from this biopsy. I have spoken to the lab today too and asked that a fungal and AFB PCRs be done on the lung biopsy. Note that the pathology on the first sample from the lung had only minute fragments of pulmonary tissue with emphysema. IMAGING: Imaging includes the original CT scan from this admission which shows airspace opacity in the right lower lobe and a discrete mass in the right lower lobe suspicious for malignancy. There is also two spiculated lesions in the base of the left lung. The right side was the lesion that was biopsied. There is also a large subcarinal lymph node noticed but no pulmonary embolism. The follow up lung biopsy CT is from today and denotes the successful effort to biopsy the right lung nodule once again. IMPRESSION: This is a patient who I got to know during an earlier admission. This patient had gone 50 years without seeing the doctor and presented with shortness of breath, congestive heart failure, chronic obstructive pulmonary disease and hypertension to the [facility] He was given aggressive anti- hypertensives and other drugs and then developed a period of hypotension associated with renal and hepatic injury which led him to this hospital on or around January 17 last year. He got through that very complex hospitalization fairly well and has been doing okay until he developed hemoptysis and night sweats. He was admitted for evaluation of these problems and a CT scan suggested malignancy with a right lower lobe significant sized mass as well as smaller bilateral spiculated lesions in the left lung in association with a subcarinal lymph node which was very enlarged. Given his extraordinary smoking history, it made sense to biopsy the right lung nodule and rule in a diagnosis of malignancy. That biopsy, however, proved to be negative and no cultures were done. So he has been re-biopsied today. Cultures for AFB, fungal and routine cultures are pending and we have contacted the laboratory and added AFB and fungal PCR studies. RECOMMENDATIONS: 1. No antibiotics at this point as the patient does not appear acutely infected. 2. We await the PCR studies which we have ordered on the lung tissue as well as the cultures and more histopath. 3. Will continue to follow this interesting patient with you next week.
--- NOTE | 2016-06-09 16:51 | DRSVH ---
PROCEDURE: X-RAY CHEST ONE VIEW, PORTABLE ([id number]) INDICATIONS: s/p CT biopsy TECHNIQUE: One view of the chest was acquired. COMPARISON: [facility], CR, XR CHEST 1VW (PORTABLE), 06/08/2016, 5:32. [facility], CR, XR CHEST 1VW (PORTABLE), 06/07/2016, 19:17. [facility], CR, XR CHEST 1VW (PORT ABLE), 06/07/2016, 10:04. FINDINGS: Surgical changes and devices: Right inferior pleural pigtail drain is present. Lungs and pleura: Small right pleural effusion. Small right basilar pneumothorax. No change in mild p atchy right basilar opacity. Severe emphysema with apical predominance. Right basilar lung nodule. Mediastinum: Mediastinal contours appear normal. Heart size is normal. Bones and chest wall: No suspicious bony lesions. Overlying soft tissues appear unremarkable. IMPRESSION: Small right hydropneumothorax. No change in right basilar airspace opacity and right basi lar lung nodule. Dictated by: Young Matthew M.D. on 06/09/2016 at 16:48 Approved by: Young Matthew M.D. on 06/09/2016 at 16:50
[2016-06-10] VITALS (8 sets, daily range): BP systolic 118–157; BP diastolic 55–77; PULSE 58–83; RESP 14–18; O2SAT 93–99
[2016-06-10 05:57] LABS: BASOPHILS % (AUTO) 0 % (0-3); EOSINOPHILS % (AUTO) 0.6 % (0-5); MONOCYTES % (AUTO) 9.9 % (4-12); Mean Corpuscular Hemoglobin 30.1 pg (27.0-35.0); Mean Corpuscular Volume 93.6 fL (81-100); Platelet Count 165 bil/L (150-400)
[2016-06-10 06:17] LABS: Magnesium 2.3 mg/dL (1.6-2.6)
[2016-06-10] MEDS: Albuterol-Ipratropium 3 mL Inhalation Solution NEB SCH ×4 (07:37→21:17)
[2016-06-10] MEDS: FORMOTEROL FUMARATE INHALATION SCH ×2 (07:37→21:17)
[2016-06-10] MEDS: Fluticasone 100 mCg Inhaler INHALATION SCH ×2 (07:48→19:56)
[2016-06-10] MEDS: MeTOProlol XL 50 mg ER24 Tablet PO SCH ×2 (07:48→19:56)
[2016-06-10] MEDS: Pantoprazole 40 mg ER24 Tablet PO SCH (07:48)
[2016-06-10] MEDS: predniSONE 20 mg Tablet PO SCH (07:49)
[2016-06-10] MEDS: Senna-Docusate 8.6-50 mg Tablet PO SCH (07:50)
--- NOTE | 2016-06-10 10:24 | PCM.PNMED ---
Subjective Date of Service Jun 10, 2016 Subjective - Pt seen and examined this morning. He is AAO x 3. - c/o mild shortness of breath. Denies any chest pain. - He underwent CT guided lung biopsy yesterday. Tolerated the procedure well. Exam Vital Signs Vital Sign - Last Date Time Temp Pulse Resp B/P Pulse Ox O2 Delivery O2 Flow Rate FiO2 06/10/16 07:54 Supplement Oxygen 06/10/16 07:20 68 18 95 1.00 06/10/16 05:15 36.4 118/63 Intake and Output 06/09/16 06/09/16 06/10/16 Cumulative From/Thru 15:00 23:00 07:00 05/28/16 14:05 - 06/10/16 06:07 Intake Total 774 ml 600 ml 98770 ml Output Total 1525 ml 1425 ml 39215 ml Balance -751 ml -825 ml -1198 ml Intake Oral 774 ml 600 ml 39127 ml IV Total 95814 ml Output Urine Total 1525 ml 1425 ml 90412 ml Emesis 4 ml Chest Tube Drainage Total 75 ml Drainage Total 120 ml # Voids 11 # Bowel Movements 3 20 Exam General: Patient is in no apparent distress sitting up in a bedside chair. HEENT: Head is atraumatic and normocephalic. Eyes: Pupils are equally round and reactive to light and accommodation. Extraocular muscles are intact. Sclera are white, anicteric. Subconjunctival mucosa is pink. Ears and nose are unremarkable. Oropharynx: There is no mucosal lesions, there is no thrush, there is no pharyngitis. Neck: Is supple, there are no nodes, or masses or tenderness. Chest: There is improved breath sounds again today on the right. The chest tube in right chest is intact and the site is unremarkable. Heart: Rate, rhythm is regular. There is no new murmur, rub or gallop. Abdomen: Good bowel sounds are present. Abdomen is soft, nontender, no organomegaly or masses were appreciated. Extremities: Are symmetrical and well perfused. There is no edema, there is no cellulitis, no rash. Neurologic: There are no focal neurological deficits. Cranial nerves II through XII are intact. There are no sensory or motor deficits. Psychiatric: Patients mood is calm and he shows no sign of agitation. IVs and Medications Medications Reviewed: Medications were reviewed in detail Lab and Diagnostics Result Diagram: 06/10/1651906/10/16519 Microbiology Cultures are negative at 5 days. X-Rays, CTs and MRIs . X-RAY CHEST ONE VIEW, PORTABLE 05/28/2016 IMPRESSION: Right mid and lower lung patchy radiopacities suspicious for aspiration/infection superimposed on severe centrilobular emphysema. Short interval followup is recommended to ensure resolution of this finding and exclude underlying pulmonary pathology. X-RAY CHEST, TWO VIEWS 05/30/2016 IMPRESSION: 1. Mid right and lower lung diffuse interstitial opacities redemonstrated not significantly changed which may be related to aspiration/infection but pulmonary hemorrhage cannot be excluded. If indicated chest CT scan could be performed for further characterization. 2. Emphysematous changes redemonstrated. X-RAY CHEST, TWO VIEWS 06/03/2016 IMPRESSION: Trace apical right sided pneumothorax. X-RAY CHEST ONE VIEW, PORTABLE 06/05/2016 IMPRESSION: Resolved right pneumothorax and patchy opacity in the right lung base as well as focal opacity, stable compared to prior exam. Continued radiographic surveillance to resolution is recommended. X-RAY CHEST, TWO VIEWS 06/06/2016 IMPRESSION: Resolved trace right pneumothorax otherwise no change from prior exam. Continued radiographic surveillance to resolution is recommended. CT ANGIO CHEST PULMONARY EMBOLISM 05/30/2016 IMPRESSION: 1. Consolidative airspace opacity throughout the right lower lobe suspicious for aspiration/infection. Aspiration secondary to hemoptysis could also cause this appearance. 2. Discrete mass lesion within the lateral aspect of the right lower lobe. This finding is suspicious for a discrete neoplastic mass. Additionally, 2 spiculated lesions are present within the left lung base suspicious for neoplastic lesions. If clinically indicated, the right lower lobe mass may be amenable to CT-guided percutaneous biopsy. Of note, the patient is at increased risk for complication such as pneumothorax given the extensive emphysematous disease. 3. Solitary enlarged subcarinal lymph node. Differential considerations include reactive/infectious etiologies and korin metastasis. 4. No acute pulmonary embolus. 1. CT-guided lung biopsy. 06/02/[address]-guided chest tube placement. IMPRESSION: 1. CT guided chest tube placement for treatment of pneumothorax encountered during lung biopsy. 2. Successful CT-guided biopsy of left lung base nodule. US VENOUS LEG DUPLEX BILATERAL 05/30/2016 IMPRESSION: No deep venous thrombosis identified within either the left or right lower extremities. PROCEDURE: X-RAY CHEST, TWO VIEWS IMPRESSION: Resolved trace right pneumothorax otherwise no change from prior exam. Continued radiographic surveillance to resolution is recommended. Cardiac Echo Impressions . Echocardiogram Report: Interpretation Summary Left ventricular systolic function is moderately reduced with the ejection fraction estimated to be 40-45% but has significantly improved compared to the prior exam. There is mild to moderate global hypokinesis that is significantly improved compared to the previous study but remains worse in the distal anteroseptum, apex, and periapical sgemtns which are essentially akinetic and unchanged from the previous study. Assessment of diastolic parameters indicates a relaxation abnormality of the left ventricle, consistent with normal filling pressures, and is unchanged compared to the previous study. The right ventricle is normal in size and function and has markedly improved compared to the previous study. The right ventricular systolic pressure is estimated at 39 mmHg assuming a right atrial pressure of 3 mm Hg, and is likely significantly lower compared to the previous study. The left atrium is mildly dilated and has mildly increased in size since the prior echo exam. Right atrial size is normal and has significantly decreased in size. There is moderate mitral regurgitation that is unchanged compared to the previous study, and mild to moderate tricuspid regurgitation that has significantly improved compared to the previous study. The ascending aorta is at the upper limits of normal in size and unchanged compared to the previous study. There is no pleural effusion seen, suggesting resolution of the previously seen effusions on the previous study. Additional Diagnostics DATE COLLECTED:06/02/2016 16:33 SPECIMEN: Lung Biopsy CLINICAL HISTORY: RIGHT LUNG MASS 1). RIGHT LOWER LUNG MASS FINAL DIAGNOSIS: 1.BIOPSIES, RIGHT LOWER LUNG MASS: MINUTE FRAGMENTS OF PULMONARY TISSUE WITH DILATED AIR SPACES CONSISTENT WITH EMPHYSEMA. TWO FRAGMENTS OF PULMONARY TISSUE WITH PROMINENT NONSPECIFIC FIBROSIS. NEGATIVE FOR EVIDENCE OF NEOPLASM. GROSS DESCRIPTION: The specimen is received in one formalin filled container labeled with the patient's name, sublabeled "right lung mass" and consists of multiple white garcia tiny fragments of cylindrical shaped tissue which aggregate to 0.5 x 0.1 x 0.1 CM. The specimen is filtered and entirely submitted in one cassette. 06/02/2016 [facility] MICRO DESCRIPTION: See diagnosis. Assessment & Plan 75-year-old male admitted 05/28/16 with pneumonia/pulmonary hemorrhage. He was in acute respiratory failure that seems to have resolved overnight after admission. She continues to have hemoptysis. # Right side peripheral lung mass-a CT-guided needle biopsy was performed 2016. - Patient developed a postprocedure pneumothorax and had a chest tube placed - Lung biopsy report negative for neoplasm - s/p 2nd biopsy of the lung lesion on 06/09. - As the first biopsy was negative for neoplasm-added additional studies to be performed and an infectious source. - Appreciate ID evaluation. No indication of antibiotics at this time. Follow cultures. # Hemoptysis-present on admission and persisted until within the last couple days, - However, the hemoptysis has improved and has been minimal over the last 38 hours. # Pulmonary Hemorrhage/Pneumonia- seems to have stabilized with reversal of warfarin/anticoagulation. However, patient's emesis persisted until last 24 hours or so.. - Coumadin has been discontinued and will only resumed per pulmonary/Dhruv recommendation if needed - DVT/ +/-PE (int prob v/q) 01/18/16, Doppler/CT angiogram negative for clot/PE 05/30 - Levaquin has been discontinued - CT scan revealed a "mass" which is likely source of hemorrhage - A repeat CT scan was performed 10 days after the first one which showed: "1. No change in bilateral lung base masses. 2. Decreased right lower lobe pneumonia.3. Severe emphysema.4. Right chest tube is present. No right pneumothorax". # Acute blood loss anemia Hgb remains stable - Corrected supratherapeutic INR with vitamin K given on 05/29/16 - INR 1.39 05/30, 1.12 05/31 # COPD Exacerbation/Pneumonia - IV Levaquin was given from 05/28-05/31/16, Levaquin was changed to 500mg by mouth q48 -06/03 and has subsequently been discontinued. - We will continue to taper prednisone decreasing from 40 mg daily to 30 mg daily started on 06/03/2016. We will decrease prednisone to 20 mg by mouth daily on 06/06/2016. Will further decrease to 10 mg from 06/11 - Continue Oxygen by MO patient's on 2 L which is pretty much baseline 05/30/16 # HTN/CHF/Valvular Heart Disease and Cardiomyopathy - Suspect patient has hypertensive heart disease and unsure about the cause of his valvular disease - Continue his usual Cardiac medicines of losartan, metoprolol, Lasix. - The BNP was 847. Patient does not seem clinically to be in overt heart failure, would use IV fluids cautiously # JG/Chronic Kidney Disease 3-JG resolved, IV fluids discontinued 05/31 -Creatinine was 1.64 on 05/29 - Creatinine today is 1.19 slightly up from 1.06 # Thrombocytopenia improved - The patient's baseline platelet seemed to be around 90,000 historically - Now stabilized for pst five days. - Lovenox DVT prophylaxis is on hold due to the pulmonary hemorrhage and hemoptysis. # Supratherapeutic INR -resolved 05/30/16, off anticoagulation 05/28/16 # DVT/PE 02/01-patient is coming up on 6 months of therapy with there are ongoing issues risk of warfarin outweighs benefit at this point in time and will likely be discontinued. Disposition: Patient will likely he will go home in 2 - 3 days after he safely has a needle biopsy of one of his 3 lung masses and his chest tube was able to be removed. GI Prophylaxis: Proton Pump Inhibitor VTE Prophylaxis: Theraputic Anticoag with Warfarin VTE Mechanical Devices: Intermittant Pneumatic CD Resuscitation Status: CPR: Attempt Resuscitation Bakari Ibrahim MD Jun 10, 2016 10:24
--- NOTE | 2016-06-10 10:57 | PROG NOTE ---
[address] [address] PROGRESS NOTE PATIENT: Enriqueta CERVANTES : 1940 MR#: [id number] ADMIT: 05/28/2016 JOB ID: [id number] DATE: 06/10/2016 PULMONARY PROGRESS NOTE: The patient is a 75-year-old man seen in followup for lung mass suspected to be malignancy and emphysema. INTERVAL HISTORY: He underwent a second CT-guided biopsy of the lung mass yesterday. I saw him yesterday and ordered a postprocedure chest x-ray for yesterday evening and again this morning. It does show a tiny pneumothorax but the patient is asymptomatic. He denies any chest pain, shortness of breath. REVIEW OF SYSTEMS: As above. PHYSICAL EXAMINATION: Vital signs reviewed. He is afebrile. Pulse 68, respirations 18, BP 118/63, sats 95% on 1 L nasal cannula. He is sitting in a chair, breathing comfortably. Chest is clear to auscultation. Right-sided pigtail chest tube is to water seal and has some blood-tinged fluid in the tubing itself. The chest tube is not to suction. It is only to water seal. ASSESSMENT AND RECOMMENDATIONS: 1. Right lung mass. 2. Right-sided iatrogenic pneumothorax. A 75-year-old man with emphysema and lung mass suspected to be malignancy status post CT-guided biopsy-second attempt on June 09. He has a pigtail chest tube in place from an iatrogenic pneumothorax last week following the first attempt although the chest tube is to water seal and he now has a small right lower lateral pneumothorax on chest x-ray both yesterday evening and this morning. I asked the nurse to place the chest tube to 20 cm of suction. We leave it there and repeat chest x-ray daily. I probably would not take it off suction until Sunday. Sunday, if the pneumothorax has resolved on chest x-ray, then I would put the chest tube to water seal and repeat a chest x-ray to see if it reaccumulates. With regards to the fluid that I see in the tubing for the chest tube, I do not see that this has ever been tested or sent for cytology. So, I will order fluid analysis including cytology to look for malignant pleural effusion. I am not here tomorrow but you can page me for any urgent questions.
--- NOTE | 2016-06-10 12:07 | DRSVH ---
PROCEDURE: X-RAY CHEST ONE VIEW, PORTABLE ([id number]) INDICATIONS: s/p CT biopsy TECHNIQUE: One view of the chest was acquired. COMPARISON: [facility], CT, CT CHEST W CON, 06/07/2016, 10:32. [facility], C R, XR CHEST 1VW (PORTABLE), 06/08/2016, 5:32. [facility], CR, XR CHEST 1VW (PORTABLE), , 16:31. FINDINGS: Surgical changes and devices: The right basilar pigtail chest tube is demonstrated, similar in positi on Lungs and pleura: There is a small residual right basilar loculated pneumothorax which appears uncha nged. A peripheral right basilar mass is redemonstrated. Interstitial opacities are again noted in the right lung base. Mild linear atelectasis or scarring is redemonstrated in the left lung. Mediastinum: Mediastinal contours appear unchanged. Heart size is normal. Bones and chest wall: No suspicious bony lesions. Overlying soft tissues appear unremarkable. IMPRESSION: 1. Small loculated right basilar pneumothorax appears similar in size compared to the prior study wi th chest tube again noted. 2. Right basilar mass and interstitial opacities are redemonstrated. Dictated by: Maik Holcomb M.D. on 06/10/2016 at 11:58 Approved by: Maik Holcomb M.D. on 06/10/2016 at 12:01
--- NOTE | 2016-06-10 18:08 | NUR ---
Activity/chest tube Pt alternating between reclining in bed and sitting in recliner at bedside. He is able to self transfer without issue, denies any pain/discomfort. Chest tube remains in place, drsg is CDI. Per MD, suction applied at 20 this morning. Also obtained a sample of fluid (15ml) and sent down to lab. Total chest tube output 21ml this shift. Pt currently resting comfortably in bed, call light in reach.
[2016-06-11] VITALS (7 sets, daily range): BP systolic 111–126; BP diastolic 53–62; PULSE 50–76; RESP 18; O2SAT 93–98
[2016-06-11 07:27] LABS: BASOPHILS % (AUTO) 0.2 % (0-3); EOSINOPHILS % (AUTO) 1.8 % (0-5); MONOCYTES % (AUTO) 14.1 % (4-12); Mean Corpuscular Hemoglobin 30.5 pg (27.0-35.0); Mean Corpuscular Volume 93.3 fL (81-100); NEUTROPHILS % (AUTO) 65.3 % (40-74); Platelet Count 163 bil/L (150-400)
[2016-06-11] MEDS: FORMOTEROL FUMARATE INHALATION SCH ×2 (07:28→20:03)
[2016-06-11] MEDS: Albuterol-Ipratropium 3 mL Inhalation Solution NEB SCH ×4 (07:28→19:58)
[2016-06-11] MEDS: Fluticasone 100 mCg Inhaler INHALATION SCH ×2 (08:03→20:43)
[2016-06-11] MEDS: Senna-Docusate 8.6-50 mg Tablet PO SCH (08:05)
[2016-06-11] MEDS: MeTOProlol XL 50 mg ER24 Tablet PO SCH ×2 (08:05→20:43)
[2016-06-11] MEDS: Pantoprazole 40 mg ER24 Tablet PO SCH (08:06)
[2016-06-11] MEDS: predniSONE 10 mg Tablet PO SCH (08:06)
--- NOTE | 2016-06-11 09:06 | NUR ---
Verbal consent to sign EFRAIN. MIGUEL Hinson
--- NOTE | 2016-06-11 11:04 | PCM.PNMED ---
Subjective Date of Service Jun 11, 2016 Subjective - Pt seen and examined this morning. He is AAO x 3. - c/o mild shortness of breath. Denies any chest pain. - States that he is feeling much better. Exam Vital Signs Vital Sign - Last Date Time Temp Pulse Resp B/P Pulse Ox O2 Delivery O2 Flow Rate FiO2 06/11/16 08:07 Supplement Oxygen 06/11/16 07:29 50 18 98 1.00 06/11/16 05:06 36.4 111/62 Intake and Output 06/10/16 06/10/16 06/11/16 Cumulative From/Thru 15:00 23:00 07:00 05/28/16 14:05 - 06/11/16 06:31 Intake Total 1457 ml 436 ml 30068 ml Output Total 2021 ml 950 ml 42816 ml Balance -564 ml -514 ml -2276 ml Intake Oral 1457 ml 436 ml 96461 ml IV Total 41333 ml Output Urine Total 2000 ml 950 ml 79304 ml Emesis 4 ml Chest Tube Drainage Total 75 ml Drainage Total 21 ml 141 ml # Voids 11 # Bowel Movements 0 20 Exam General: Patient is in no apparent distress sitting up in a bedside chair. HEENT: Head is atraumatic and normocephalic. Eyes: Pupils are equally round and reactive to light and accommodation. Extraocular muscles are intact. Sclera are white, anicteric. Subconjunctival mucosa is pink. Ears and nose are unremarkable. Oropharynx: There is no mucosal lesions, there is no thrush, there is no pharyngitis. Neck: Is supple, there are no nodes, or masses or tenderness. Chest: There is improved breath sounds again today on the right. The chest tube in right chest is intact and the site is unremarkable. Heart: Rate, rhythm is regular. There is no new murmur, rub or gallop. Abdomen: Good bowel sounds are present. Abdomen is soft, nontender, no organomegaly or masses were appreciated. Extremities: Are symmetrical and well perfused. There is no edema, there is no cellulitis, no rash. Neurologic: There are no focal neurological deficits. Cranial nerves II through XII are intact. There are no sensory or motor deficits. Psychiatric: Patients mood is calm and he shows no sign of agitation. IVs and Medications Medications Reviewed: Medications were reviewed in detail Lab and Diagnostics Result Diagram: 06/11/16 0657 06/11/16 0657 Microbiology Cultures are negative at 5 days. X-Rays, CTs and MRIs . X-RAY CHEST ONE VIEW, PORTABLE 05/28/2016 IMPRESSION: Right mid and lower lung patchy radiopacities suspicious for aspiration/infection superimposed on severe centrilobular emphysema. Short interval followup is recommended to ensure resolution of this finding and exclude underlying pulmonary pathology. X-RAY CHEST, TWO VIEWS 05/30/2016 IMPRESSION: 1. Mid right and lower lung diffuse interstitial opacities redemonstrated not significantly changed which may be related to aspiration/infection but pulmonary hemorrhage cannot be excluded. If indicated chest CT scan could be performed for further characterization. 2. Emphysematous changes redemonstrated. X-RAY CHEST, TWO VIEWS 06/03/2016 IMPRESSION: Trace apical right sided pneumothorax. X-RAY CHEST ONE VIEW, PORTABLE 06/05/2016 IMPRESSION: Resolved right pneumothorax and patchy opacity in the right lung base as well as focal opacity, stable compared to prior exam. Continued radiographic surveillance to resolution is recommended. X-RAY CHEST, TWO VIEWS 06/06/2016 IMPRESSION: Resolved trace right pneumothorax otherwise no change from prior exam. Continued radiographic surveillance to resolution is recommended. CT ANGIO CHEST PULMONARY EMBOLISM 05/30/2016 IMPRESSION: 1. Consolidative airspace opacity throughout the right lower lobe suspicious for aspiration/infection. Aspiration secondary to hemoptysis could also cause this appearance. 2. Discrete mass lesion within the lateral aspect of the right lower lobe. This finding is suspicious for a discrete neoplastic mass. Additionally, 2 spiculated lesions are present within the left lung base suspicious for neoplastic lesions. If clinically indicated, the right lower lobe mass may be amenable to CT-guided percutaneous biopsy. Of note, the patient is at increased risk for complication such as pneumothorax given the extensive emphysematous disease. 3. Solitary enlarged subcarinal lymph node. Differential considerations include reactive/infectious etiologies and korin metastasis. 4. No acute pulmonary embolus. 1. CT-guided lung biopsy. 06/02/[address]-guided chest tube placement. IMPRESSION: 1. CT guided chest tube placement for treatment of pneumothorax encountered during lung biopsy. 2. Successful CT-guided biopsy of left lung base nodule. US VENOUS LEG DUPLEX BILATERAL 05/30/2016 IMPRESSION: No deep venous thrombosis identified within either the left or right lower extremities. PROCEDURE: X-RAY CHEST, TWO VIEWS IMPRESSION: Resolved trace right pneumothorax otherwise no change from prior exam. Continued radiographic surveillance to resolution is recommended. Cardiac Echo Impressions . Echocardiogram Report: Interpretation Summary Left ventricular systolic function is moderately reduced with the ejection fraction estimated to be 40-45% but has significantly improved compared to the prior exam. There is mild to moderate global hypokinesis that is significantly improved compared to the previous study but remains worse in the distal anteroseptum, apex, and periapical sgemtns which are essentially akinetic and unchanged from the previous study. Assessment of diastolic parameters indicates a relaxation abnormality of the left ventricle, consistent with normal filling pressures, and is unchanged compared to the previous study. The right ventricle is normal in size and function and has markedly improved compared to the previous study. The right ventricular systolic pressure is estimated at 39 mmHg assuming a right atrial pressure of 3 mm Hg, and is likely significantly lower compared to the previous study. The left atrium is mildly dilated and has mildly increased in size since the prior echo exam. Right atrial size is normal and has significantly decreased in size. There is moderate mitral regurgitation that is unchanged compared to the previous study, and mild to moderate tricuspid regurgitation that has significantly improved compared to the previous study. The ascending aorta is at the upper limits of normal in size and unchanged compared to the previous study. There is no pleural effusion seen, suggesting resolution of the previously seen effusions on the previous study. Additional Diagnostics DATE COLLECTED:06/02/2016 16:33 SPECIMEN: Lung Biopsy CLINICAL HISTORY: RIGHT LUNG MASS 1). RIGHT LOWER LUNG MASS FINAL DIAGNOSIS: 1.BIOPSIES, RIGHT LOWER LUNG MASS: MINUTE FRAGMENTS OF PULMONARY TISSUE WITH DILATED AIR SPACES CONSISTENT WITH EMPHYSEMA. TWO FRAGMENTS OF PULMONARY TISSUE WITH PROMINENT NONSPECIFIC FIBROSIS. NEGATIVE FOR EVIDENCE OF NEOPLASM. GROSS DESCRIPTION: The specimen is received in one formalin filled container labeled with the patient's name, sublabeled "right lung mass" and consists of multiple white garcia tiny fragments of cylindrical shaped tissue which aggregate to 0.5 x 0.1 x 0.1 CM. The specimen is filtered and entirely submitted in one cassette. 06/02/2016 [facility] MICRO DESCRIPTION: See diagnosis. Assessment & Plan 75-year-old male admitted 05/28/16 with pneumonia/pulmonary hemorrhage. He was in acute respiratory failure that seems to have resolved overnight after admission. She continues to have hemoptysis. # Right side peripheral lung mass-a CT-guided needle biopsy was performed 2016. - Patient developed a postprocedure pneumothorax and had a chest tube placed - Lung biopsy report negative for neoplasm - s/p 2nd biopsy of the lung lesion on 06/09. - Pneumothorax is still present. Managed by [employer]. - As the first biopsy was negative for neoplasm-added additional studies to be performed and an infectious source. - Appreciate ID evaluation. No indication of antibiotics at this time. Follow cultures. # Hemoptysis-present on admission and persisted until within the last couple days, - However, the hemoptysis has improved and has been minimal over the last 38 hours. # Pulmonary Hemorrhage/Pneumonia- seems to have stabilized with reversal of warfarin/anticoagulation. However, patient's emesis persisted until last 24 hours or so.. - Coumadin has been discontinued and will only resumed per pulmonary/Dhruv recommendation if needed - DVT/ +/-PE (int prob v/q) 01/18/16, Doppler/CT angiogram negative for clot/PE 05/30 - Levaquin has been discontinued - CT scan revealed a "mass" which is likely source of hemorrhage - A repeat CT scan was performed 10 days after the first one which showed: "1. No change in bilateral lung base masses. 2. Decreased right lower lobe pneumonia.3. Severe emphysema.4. Right chest tube is present. No right pneumothorax". # Acute blood loss anemia Hgb remains stable - Corrected supratherapeutic INR with vitamin K given on 05/29/16 - INR 1.39 05/30, 1.12 05/31 # COPD Exacerbation/Pneumonia - IV Levaquin was given from 05/28-05/31/16, Levaquin was changed to 500mg by mouth q48 -06/03 and has subsequently been discontinued. - We will continue to taper prednisone decreasing from 40 mg daily to 30 mg daily started on 06/03/2016. We will decrease prednisone to 20 mg by mouth daily on 06/06/2016. Will further decrease to 10 mg from 06/11 - Continue Oxygen by SD patient's on 2 L which is pretty much baseline 05/30/16 # HTN/CHF/Valvular Heart Disease and Cardiomyopathy - Suspect patient has hypertensive heart disease and unsure about the cause of his valvular disease - Continue his usual Cardiac medicines of losartan, metoprolol, Lasix. - The BNP was 847. Patient does not seem clinically to be in overt heart failure, would use IV fluids cautiously # JG/Chronic Kidney Disease 3-JG resolved, IV fluids discontinued 05/31 -Creatinine was 1.64 on 05/29 - Creatinine today is 1.19 slightly up from 1.06 # Thrombocytopenia improved - The patient's baseline platelet seemed to be around 90,000 historically - Now stabilized for pst five days. - Lovenox DVT prophylaxis is on hold due to the pulmonary hemorrhage and hemoptysis. # Supratherapeutic INR -resolved 05/30/16, off anticoagulation 05/28/16 # DVT/PE 02/01-patient is coming up on 6 months of therapy with there are ongoing issues risk of warfarin outweighs benefit at this point in time and will likely be discontinued. Disposition: Patient will likely he will go home in 2 - 3 days after his chest tube was able to be removed. Pain Evaluation: Adequate Pain Control GI Prophylaxis: Proton Pump Inhibitor VTE Prophylaxis: Theraputic Anticoag with Warfarin VTE Mechanical Devices: Intermittant Pneumatic CD Resuscitation Status: CPR: Attempt Resuscitation Bakari Ibrahim MD Jun 11, 2016 11:04
--- NOTE | 2016-06-11 11:54 | NUR ---
Social Work: Continued discharge planning: Data:EMR reviewed. Pt is on day 14 of hospitalization for pneumonia per H&P. Pt anticipated to be in the hospital for several more days. Referral has been made to [facility] for RN,PT, and OT. Pt likely to be homebound and pt's daughter provides 09/10 are at home. F2F in folder. SW will continue to follow. Assessment: Pt who is independent at baseline. Plan: Pt to discharge home with daughter when medically stable via POV. Referral made to [facility] for RN,PT, and OT. F2F in folder. SW will continue to follow. MIGUEL Hinson
--- NOTE | 2016-06-11 18:35 | NUR ---
Activity/CT Pt compliant with elevating LE's while sitting in recliner at bedside. He continues to deny any px/discomfort. Chest tube remains in place, drsg is CDI.Suction remains at 20 and drsg is CDI. Total chest tube output 20ml this shift. Pt currently resting comfortably in recliner, call light in reach
[2016-06-12] VITALS (7 sets, daily range): BP systolic 112–137; BP diastolic 52–66; PULSE 56–86; RESP 16–20; O2SAT 92–97
--- NOTE | 2016-06-12 06:35 | NUR ---
activity patient up to recline until approximately 2200. moving independently, careful of chest tube. denies pain. denies dyspnea . care ongoing.
[2016-06-12] MEDS: Albuterol-Ipratropium 3 mL Inhalation Solution NEB SCH ×4 (07:19→19:23)
[2016-06-12] MEDS: FORMOTEROL FUMARATE INHALATION SCH ×2 (07:33→19:23)
[2016-06-12] MEDS: predniSONE 10 mg Tablet PO SCH (08:16)
[2016-06-12] MEDS: Fluticasone 100 mCg Inhaler INHALATION SCH ×2 (08:16→20:16)
[2016-06-12] MEDS: MeTOProlol XL 50 mg ER24 Tablet PO SCH ×2 (08:17→20:17)
[2016-06-12] MEDS: Pantoprazole 40 mg ER24 Tablet PO SCH (08:17)
[2016-06-12] MEDS: Senna-Docusate 8.6-50 mg Tablet PO SCH (08:48)
--- NOTE | 2016-06-12 08:49 | DRSVH ---
PROCEDURE: X-RAY CHEST ONE VIEW, PORTABLE ([id number]) INDICATIONS: SHORTNESS OF BREATH TECHNIQUE: One view of the chest was acquired. COMPARISON: [facility], CR, XR CHEST 1VW (PORTABLE), 06/10/2016, 5:33. FINDINGS: Surgical changes and devices: The right basilar pigtail chest tube is demonstrated, similar in positi on Lungs and pleura: There is a small residual right basilar loculated pneumothorax which appears decre ased. A peripheral right basilar mass is redemonstrated. Interstitial opacities are again noted in the right lung base. Mild linear atelectasis or scarring is redemonstrated in the left lung. Mediastinum: Mediastinal contours appear unchanged. Heart size is normal. Bones and chest wall: No suspicious bony lesions. Overlying soft tissues appear unremarkable. IMPRESSION: 1. Small loculated right basilar pneumothorax decreased in size with chest tube again noted. 2. Right basilar mass and interstitial opacities redemonstrated. Dictated by: Sudhakar Jo RRA Interpreted: Siena Choi MD on 06/12/2016 at 8:47 Transcribed by: JAQUAN on 06/12/2016 at 8:49 Approved by: Siena Choi MD, PhD on 06/12/2016 at 18:04
--- NOTE | 2016-06-12 11:53 | NUR ---
Daily update Patient alert and oriented X3. Patient able to ambulate independently and is careful not to disturb chest tube in place on right side. Patient has been coughing up moderate amount of brownish/red sputum. Patient dressing is C/D/I. Patient lungs remain decreased with a slight rubbing sound on right side. Will continue to monitor output with chest tube.
--- NOTE | 2016-06-12 15:00 | PROG NOTE ---
[address] [address] PROGRESS NOTE PATIENT: Enriqueta CERVANTES : 1940 MR#: [id number] ADMIT: 05/28/2016 JOB ID: [id number] DATE: 06/07/2016 PULMONARY PROGRESS NOTE: The patient is a 76-year-old man with emphysema, seen in followup for lung mass suspected to be malignancy and iatrogenic pneumothorax. INTERVAL HISTORY: He has had his pigtail chest tube to suction since Sunday morning, i.e. June 10. Chest x-ray today shows minimal residual pneumothorax significantly improved compared to prior. Symptom esparza, he denies any chest pain, shortness of breath. He is coughing up bloody secretions which I will looked at and seem to be almost entirely blood, although dark and clot like in appearance. He says this is unchanged for many weeks. REVIEW OF SYSTEMS: As above. No fevers, chills. PHYSICAL EXAMINATION: Vital signs reviewed. Temperature 36.6, pulse 75, respirations 16, BP 137/63, sats 94% on 1 L nasal cannula. General: Alert, sitting up in bed, breathing comfortably. Chest is clear, although poor air movement. LABORATORIES: Reviewed. Nothing of note. Creatinine down to 1.37 from 1.45. Chest x-ray reviewed and shows trace right lower lateral pneumothorax. No other changes. This is improved compared to June 10. ASSESSMENT AND RECOMMENDATIONS: 1. Right lung mass, status post second biopsy on June 09. 2. Right-sided iatrogenic pneumothorax - improving. Biopsy results are still pending at this time, but I am hoping will have some information either later today or tomorrow morning at the latest. With regards to his pneumothorax, it has improved significantly, but I think the chest tube should be left to suction tonight. We will repeat a chest x-ray tomorrow morning and reassess. If the pneumothorax has resolved, we could consider switching the chest tube to water seal. Nothing else to add from a pulmonary standpoint.
--- NOTE | 2016-06-12 17:23 | PCM.PNMED ---
Subjective Date of Service Jun 12, 2016 Subjective denies any new issues/complaints. Exam Vital Signs Vital Sign - Last Date Time Temp Pulse Resp B/P Pulse Ox O2 Delivery O2 Flow Rate FiO2 06/12/16 16:06 71 20 93 Nasal Cannula 1.00 06/12/16 13:41 36.6 137/63 Intake and Output 06/11/16 06/11/16 06/12/16 Cumulative From/Thru 15:00 23:00 07:00 05/28/16 14:05 - 06/12/16 06:41 Intake Total 1150 ml 400 ml 89591 ml Output Total 1670 ml 900 ml 55943 ml Balance -520 ml -500 ml -3296 ml Intake Oral 1150 ml 400 ml 17425 ml IV Total 62590 ml Output Urine Total 1650 ml 900 ml 66621 ml Emesis 4 ml Chest Tube Drainage Total 20 ml 0 ml 95 ml Drainage Total 141 ml # Voids 11 # Bowel Movements 2 22 General: Alert, Cooperative, No Acute Distress Eyes: Scleral Anicteric Mouth: Mucous Membr Moist/[place] Neck: Supple Chest & Lungs: Clear to auscultation & percussion, Other (chest tube in place in the right lower ) Cardiovascular: Regular Rate/Rhythm Abdomen: Non-tender, Non-distended, Normoactive bowel tones, Soft Extremities: No cyanosis/clubbing/edma bilat Neurological: Grossly Neurologically Intact, Normal Speech IVs and Medications Medications Reviewed: Medications were reviewed in detail Lab and Diagnostics Result Diagram: 06/11/16 0657 06/12/16 0800 Microbiology Cultures are negative at 5 days. X-Rays, CTs and MRIs . X-RAY CHEST ONE VIEW, PORTABLE 05/28/2016 IMPRESSION: Right mid and lower lung patchy radiopacities suspicious for aspiration/infection superimposed on severe centrilobular emphysema. Short interval followup is recommended to ensure resolution of this finding and exclude underlying pulmonary pathology. X-RAY CHEST, TWO VIEWS 05/30/2016 IMPRESSION: 1. Mid right and lower lung diffuse interstitial opacities redemonstrated not significantly changed which may be related to aspiration/infection but pulmonary hemorrhage cannot be excluded. If indicated chest CT scan could be performed for further characterization. 2. Emphysematous changes redemonstrated. X-RAY CHEST, TWO VIEWS 06/03/2016 IMPRESSION: Trace apical right sided pneumothorax. X-RAY CHEST ONE VIEW, PORTABLE 06/05/2016 IMPRESSION: Resolved right pneumothorax and patchy opacity in the right lung base as well as focal opacity, stable compared to prior exam. Continued radiographic surveillance to resolution is recommended. X-RAY CHEST, TWO VIEWS 06/06/2016 IMPRESSION: Resolved trace right pneumothorax otherwise no change from prior exam. Continued radiographic surveillance to resolution is recommended. CT ANGIO CHEST PULMONARY EMBOLISM 05/30/2016 IMPRESSION: 1. Consolidative airspace opacity throughout the right lower lobe suspicious for aspiration/infection. Aspiration secondary to hemoptysis could also cause this appearance. 2. Discrete mass lesion within the lateral aspect of the right lower lobe. This finding is suspicious for a discrete neoplastic mass. Additionally, 2 spiculated lesions are present within the left lung base suspicious for neoplastic lesions. If clinically indicated, the right lower lobe mass may be amenable to CT-guided percutaneous biopsy. Of note, the patient is at increased risk for complication such as pneumothorax given the extensive emphysematous disease. 3. Solitary enlarged subcarinal lymph node. Differential considerations include reactive/infectious etiologies and korin metastasis. 4. No acute pulmonary embolus. 1. CT-guided lung biopsy. 06/02/[address]-guided chest tube placement. IMPRESSION: 1. CT guided chest tube placement for treatment of pneumothorax encountered during lung biopsy. 2. Successful CT-guided biopsy of left lung base nodule. US VENOUS LEG DUPLEX BILATERAL 05/30/2016 IMPRESSION: No deep venous thrombosis identified within either the left or right lower extremities. PROCEDURE: X-RAY CHEST, TWO VIEWS IMPRESSION: Resolved trace right pneumothorax otherwise no change from prior exam. Continued radiographic surveillance to resolution is recommended. Cardiac Echo Impressions . Echocardiogram Report: Interpretation Summary Left ventricular systolic function is moderately reduced with the ejection fraction estimated to be 40-45% but has significantly improved compared to the prior exam. There is mild to moderate global hypokinesis that is significantly improved compared to the previous study but remains worse in the distal anteroseptum, apex, and periapical sgemtns which are essentially akinetic and unchanged from the previous study. Assessment of diastolic parameters indicates a relaxation abnormality of the left ventricle, consistent with normal filling pressures, and is unchanged compared to the previous study. The right ventricle is normal in size and function and has markedly improved compared to the previous study. The right ventricular systolic pressure is estimated at 39 mmHg assuming a right atrial pressure of 3 mm Hg, and is likely significantly lower compared to the previous study. The left atrium is mildly dilated and has mildly increased in size since the prior echo exam. Right atrial size is normal and has significantly decreased in size. There is moderate mitral regurgitation that is unchanged compared to the previous study, and mild to moderate tricuspid regurgitation that has significantly improved compared to the previous study. The ascending aorta is at the upper limits of normal in size and unchanged compared to the previous study. There is no pleural effusion seen, suggesting resolution of the previously seen effusions on the previous study. Additional Diagnostics DATE COLLECTED:06/02/2016 16:33 SPECIMEN: Lung Biopsy CLINICAL HISTORY: RIGHT LUNG MASS 1). RIGHT LOWER LUNG MASS FINAL DIAGNOSIS: 1.BIOPSIES, RIGHT LOWER LUNG MASS: MINUTE FRAGMENTS OF PULMONARY TISSUE WITH DILATED AIR SPACES CONSISTENT WITH EMPHYSEMA. TWO FRAGMENTS OF PULMONARY TISSUE WITH PROMINENT NONSPECIFIC FIBROSIS. NEGATIVE FOR EVIDENCE OF NEOPLASM. GROSS DESCRIPTION: The specimen is received in one formalin filled container labeled with the patient's name, sublabeled "right lung mass" and consists of multiple white garcia tiny fragments of cylindrical shaped tissue which aggregate to 0.5 x 0.1 x 0.1 CM. The specimen is filtered and entirely submitted in one cassette. 06/02/2016 [facility] MICRO DESCRIPTION: See diagnosis. Assessment & Plan 75-year-old male admitted 05/28/16 with pneumonia/pulmonary hemorrhage. He was in acute respiratory failure that seems to have resolved overnight after admission. # Right side peripheral lung mass-a CT-guided needle biopsy was performed 2016. - Patient developed a postprocedure pneumothorax and had a chest tube placed - Lung biopsy report negative for neoplasm - s/p 2nd biopsy of the lung lesion on 06/09 (f/u on result) - As the first biopsy was negative for neoplasm-added additional studies to be performed and an infectious source. - Appreciate ID and pulmonology consults. No indication of antibiotics at this time. # Acute pneumothorax. iatrogenic. not present on admission. improving - appreciate pulmonology consult. will f/u w/ recs - c/w chest tube - f/u repeat CXR in am # Hemoptysis-present on admission. resolved. - f/u - w/u as noted above # Pulmonary Hemorrhage/Pneumonia- seems to have stabilized with reversal of warfarin/anticoagulation. - DVT/ +/-PE (int prob v/q) 01/18/16, Doppler/CT angiogram negative for clot/PE 05/30 # Acute blood loss anemia Hgb remains stable - Corrected supra-therapeutic INR with vitamin K given on 05/29/16 - continue to hold anticoagulation # COPD Exacerbation/Pneumonia. Acute present on admission. Improved - IV Levaquin was given from 05/28-05/31/16, Levaquin was changed to 500mg by mouth q48 -06/03 and has subsequently been discontinued. - continue to taper prednisone - Continue Oxygen by NC # HTN/CHF/Valvular Heart Disease and Cardiomyopathy - Suspect patient has hypertensive heart disease and unsure about the cause of his valvular disease - Continue his usual Cardiac medicines of losartan, metoprolol, Lasix. - The BNP was 847. Patient does not seem clinically to be in overt heart failure, would use IV fluids cautiously # JG/Chronic Kidney Disease 3-JG resolved, IV fluids discontinued 05/31 -Creatinine was 1.64 on 05/29 - Creatinine today is 1.19 slightly up from 1.06 # Thrombocytopenia improved - The patient's baseline platelet seemed to be around 90,000 historically - Now stabilized - Lovenox DVT prophylaxis is on hold due to the pulmonary hemorrhage and hemoptysis. # Supra-therapeutic INR - resolved. as noted above # DVT/PE 02/01-patient is coming up on 6 months of therapy with there are ongoing issues risk of warfarin outweighs benefit at this point in time and will likely be discontinued. Disposition: Patient will likely he will go home in 2 - 3 days after his chest tube was able to be removed. GI Prophylaxis: Proton Pump Inhibitor VTE Prophylaxis: Theraputic Anticoag with Warfarin VTE Mechanical Devices: Intermittant Pneumatic CD Resuscitation Status: CPR: Attempt Resuscitation Time spent 35 min Carlos Manuel Pringle Jun 12, 2016 17:23
--- NOTE | 2016-06-12 18:35 | NUR ---
Chest tube Patient continues to have chest tube to right lateral lung. Chest tube is on continuous suction at 20. Patient had 5cc of drainage during the day today.
[2016-06-13] VITALS (7 sets, daily range): BP systolic 117–140; BP diastolic 54–67; PULSE 72–81; RESP 16–20; O2SAT 92–98
--- NOTE | 2016-06-13 06:23 | NUR ---
Chest tube Pt has chest tube on the R, draining 4cc this shift. No noted s/s of infection around chest tube, pt has no complaint of pain. Will continue to monitor.
[2016-06-13] MEDS: Albuterol-Ipratropium 3 mL Inhalation Solution NEB SCH ×4 (07:57→21:28)
[2016-06-13] MEDS: FORMOTEROL FUMARATE INHALATION SCH ×2 (08:07→21:29)
[2016-06-13] MEDS: MeTOProlol XL 50 mg ER24 Tablet PO SCH ×2 (08:22→19:38)
[2016-06-13] MEDS: Pantoprazole 40 mg ER24 Tablet PO SCH (08:22)
[2016-06-13] MEDS: Senna-Docusate 8.6-50 mg Tablet PO SCH (08:22)
[2016-06-13] MEDS: predniSONE 10 mg Tablet PO SCH (08:22)
[2016-06-13] MEDS: Fluticasone 100 mCg Inhaler INHALATION SCH ×2 (08:23→19:38)
--- NOTE | 2016-06-13 10:21 | NUR ---
FERAIN verbally signed with daughter via phone. MIGUEL Thorne
--- NOTE | 2016-06-13 10:26 | NUR ---
Social Work - Readiness for Discharge Data: EMR reviewed. Pt is on day 16 of hospitalization for pneumonia, failed output tx, and hypoxe per H&P. Per MD in morning rounds pt may be ready to discharge tomorrow. Pt would benefit from HH per MD, PT, OT. SW made referral to [facility] for RN, PT, OT. Pt is likely to be homebound and daughter to provide 24/7 care. Daughter to transport home at discharge. SW spoke to daughter by phone and she is agreeable to plan. All agreeable to plan. SW will continue to follow. Assessment: Pt who would benefit from HH. P: Pt to discharge home when medically stable via POV. Referral made to [facility] for RN, PT, OT. F2F in folder. Pt's daughter to provide 24/7 care. SW will continue to follow. MIGUEL Thorne
--- NOTE | 2016-06-13 10:34 | DRSVH ---
PROCEDURE: X-RAY CHEST ONE VIEW, PORTABLE ([id number]) INDICATIONS: pneumo monitoring TECHNIQUE: One view of the chest was acquired. COMPARISON: [facility], CR, XR CHEST 1VW (PORTABLE), 06/12/2016, 7:50. FINDINGS: Surgical changes and devices: The right basilar pigtail chest tube is demonstrated, similar in positi on Lungs and pleura: There is a small residual right basilar loculated pneumothorax which appears decre ased. A peripheral right lower lobe mass is redemonstrated. Interstitial opacities are again noted in the right lung base. Mild linear atelectasis or scarring is redemonstrated in the left lung. Mediastinum: Mediastinal contours appear unchanged. Heart size is normal. Bones and chest wall: No suspicious bony lesions. Overlying soft tissues appear unremarkable. IMPRESSION: 1. Stable chest compared to prior exam. Dictated by: Sudhakar Jo RRA Interpreted: Bradley Wade MD on 06/13/2016 at 10:33 Transcribed by: SON on 06/13/2016 at 10:34 Approved by: Bradley Wade M.D. on 06/13/2016 at 11:30
--- NOTE | 2016-06-13 12:40 | PROG NOTE ---
[address] [address] PROGRESS NOTE PATIENT: Enriqueta CERVANTES : 1940 MR#: [id number] ADMIT: 05/28/2016 JOB ID: [id number] DATE: 06/13/2016 REASON FOR FOLLOWUP: Pulmonary nodules of unknown etiology. INTERVAL HISTORY: Recall this is an elderly gentleman with heavy smoking history who has newfound pulmonary nodules and hemoptysis. Everyone in the case initially believed this was malignant, but we now have back two lung biopsies which are negative, and this caused attention to be turned to the possibility of infection. The patient tells us today he continues to have hemoptysis, though it has diminished somewhat. He has no fevers, chills, or sweats and denies being short of breath. He has no GI symptoms. PHYSICAL EXAMINATION: Reveals a comfortable gentleman sitting up having lunch. Temp 36.6, pulse 73, respiratory rate 20, blood pressure 132/67, and he is in no acute distress. Examination of the mental status reveals it to be clear. His oral cavity is negative. His lungs with some scattered coarse rales bilaterally but not changed from prior. He still has a chest tube present on the right side where both lung biopsies were performed. LABORATORIES: Include normal white count of 8700. Creatinine stable 1.39. Procalcitonin basically zero. Cryptococcal antibody was ordered. I think that was a mistake, and we were looking for cryptococcal antigen and it is still pending. Pleural fluid cultures are negative. The tissue from the lung biopsy has been sent to the [facility] for PCR for mycobacteria and fungi. Those are still pending. Blood cultures negative. IMAGING: Our most recent imaging was a chest x-ray done this morning that shows a stable chest with right basilar loculated pneumothorax. The right lower lobe mass was also seen, as are the interstitial opacities and nodules seen previously. IMPRESSION: This remains a mysterious case of a gentleman with very significant hemoptysis and right greater than left lung lesions initially thought to be malignant. So far, we have two biopsies that have come back negative for malignancy, and were waiting AFB and fungal cultures as well as PCR studies. RECOMMENDATIONS: 1. No antibiotics. 2. We await the PCR studies as well as additional histopath with special stains. 3. This case discussed in detail with Dr. Foley.
--- NOTE | 2016-06-13 15:04 | PATH ---
SURGICAL PATHOLOGY Attending Physician:See Additional MD CASE STATUS: Signed Out PATIENT NAME: Enriqueta CERVANTES PID: [id number] : 1940 DATE COLLECTED:06/09/2016 20:15 SPECIMEN: Lung Biopsy CLINICAL HISTORY: LUNG MASS 1). RIGHT LUNG BIOPSY FINAL DIAGNOSIS: 1.RIGHT LUNG, MASS, BIOPSY: SCANT FRAGMENTS OF BENIGN ALVEOLAR PARENCHYMA WITH REACTIVE PNEUMOCYTES. NO EVIDENCE OF NEOPLASM. AFB AND GMS STAINS ARE NEGATIVE FOR MYCOBACTERIA AND FUNGAL ORGANISMS, RESPECTIVELY. ICD10 CODE R91.8 GROSS DESCRIPTION: Received in formalin, labeled with the patient' s name and "unspecified", is a scant collection of fernandez tissue fragments measuring 0.1 x 0.1 x 0.1 cm in aggregate. All fragments are totally submitted in one cassette. ([id number]) MICRO DESCRIPTION: AFB and GMS stains were performed to evaluate for infectious organisms and are both negative. Control stains showed appropriate reactivity. This test was developed and its performance characteristics determined by [facility]. It has not been cleared or approved by the U. [place]. Food and Drug Administration. The FDA has determined that such clearance or approval is not necessary. This test is used for clinical purposes. It should not be regarded as investigational or for research. ICD-9 CODES: CPT CODES: 1: 08542, 74166, 02202 Electronically Signed Out Vidhi Prince MD [facility], [place] [address] Technical component performed at [facility], [facility] [address], [place], [address]
--- NOTE | 2016-06-13 16:28 | PCM.PNMED ---
Subjective Date of Service Jun 13, 2016 Subjective denies any new issues/complaints. continues to have some hemoptysis Exam Vital Signs Vital Sign - Last Date Time Temp Pulse Resp B/P Pulse Ox O2 Delivery O2 Flow Rate FiO2 06/13/16 15:58 72 20 98 Nasal Cannula 1.00 06/13/16 12:47 36.4 117/61 Intake and Output 06/12/16 06/12/16 06/13/16 Cumulative From/Thru 15:00 23:00 07:00 05/28/16 14:05 - 06/13/16 06:10 Intake Total 1250 ml 200 ml 22955 ml Output Total 800 ml 1650 ml 44569 ml Balance 450 ml -1450 ml -4296 ml Intake Oral 1240 ml 200 ml 54629 ml IV Total 10 ml 18735 ml Output Urine Total 800 ml 1650 ml 89151 ml Emesis 4 ml Chest Tube Drainage Total 95 ml Drainage Total 141 ml # Voids 11 # Bowel Movements 1 2 25 Exam General: Alert, Cooperative, No Acute Distress Eyes: Scleral Anicteric Mouth: Mucous Membr Moist/[place] Neck: Supple Chest & Lungs: Clear to auscultation & percussion, Other (chest tube in place in the right lower ) Cardiovascular: Regular Rate/Rhythm Abdomen: Non-tender, Non-distended, Normoactive bowel tones, Soft Extremities: No cyanosis/clubbing/edema bilat Neurological: Grossly Neurologically Intact, Normal Speech IVs and Medications Medications Reviewed: Medications were reviewed in detail Lab and Diagnostics Result Diagram: 06/11/16 0657 06/13/16 0610 Microbiology Cultures are negative at 5 days. X-Rays, CTs and MRIs . X-RAY CHEST ONE VIEW, PORTABLE 05/28/2016 IMPRESSION: Right mid and lower lung patchy radiopacities suspicious for aspiration/infection superimposed on severe centrilobular emphysema. Short interval followup is recommended to ensure resolution of this finding and exclude underlying pulmonary pathology. X-RAY CHEST, TWO VIEWS 05/30/2016 IMPRESSION: 1. Mid right and lower lung diffuse interstitial opacities redemonstrated not significantly changed which may be related to aspiration/infection but pulmonary hemorrhage cannot be excluded. If indicated chest CT scan could be performed for further characterization. 2. Emphysematous changes redemonstrated. X-RAY CHEST, TWO VIEWS 06/03/2016 IMPRESSION: Trace apical right sided pneumothorax. X-RAY CHEST ONE VIEW, PORTABLE 06/05/2016 IMPRESSION: Resolved right pneumothorax and patchy opacity in the right lung base as well as focal opacity, stable compared to prior exam. Continued radiographic surveillance to resolution is recommended. X-RAY CHEST, TWO VIEWS 06/06/2016 IMPRESSION: Resolved trace right pneumothorax otherwise no change from prior exam. Continued radiographic surveillance to resolution is recommended. CT ANGIO CHEST PULMONARY EMBOLISM 05/30/2016 IMPRESSION: 1. Consolidative airspace opacity throughout the right lower lobe suspicious for aspiration/infection. Aspiration secondary to hemoptysis could also cause this appearance. 2. Discrete mass lesion within the lateral aspect of the right lower lobe. This finding is suspicious for a discrete neoplastic mass. Additionally, 2 spiculated lesions are present within the left lung base suspicious for neoplastic lesions. If clinically indicated, the right lower lobe mass may be amenable to CT-guided percutaneous biopsy. Of note, the patient is at increased risk for complication such as pneumothorax given the extensive emphysematous disease. 3. Solitary enlarged subcarinal lymph node. Differential considerations include reactive/infectious etiologies and korin metastasis. 4. No acute pulmonary embolus. 1. CT-guided lung biopsy. 06/02/[address]-guided chest tube placement. IMPRESSION: 1. CT guided chest tube placement for treatment of pneumothorax encountered during lung biopsy. 2. Successful CT-guided biopsy of left lung base nodule. US VENOUS LEG DUPLEX BILATERAL 05/30/2016 IMPRESSION: No deep venous thrombosis identified within either the left or right lower extremities. PROCEDURE: X-RAY CHEST, TWO VIEWS IMPRESSION: Resolved trace right pneumothorax otherwise no change from prior exam. Continued radiographic surveillance to resolution is recommended. Cardiac Echo Impressions . Echocardiogram Report: Interpretation Summary Left ventricular systolic function is moderately reduced with the ejection fraction estimated to be 40-45% but has significantly improved compared to the prior exam. There is mild to moderate global hypokinesis that is significantly improved compared to the previous study but remains worse in the distal anteroseptum, apex, and periapical sgemtns which are essentially akinetic and unchanged from the previous study. Assessment of diastolic parameters indicates a relaxation abnormality of the left ventricle, consistent with normal filling pressures, and is unchanged compared to the previous study. The right ventricle is normal in size and function and has markedly improved compared to the previous study. The right ventricular systolic pressure is estimated at 39 mmHg assuming a right atrial pressure of 3 mm Hg, and is likely significantly lower compared to the previous study. The left atrium is mildly dilated and has mildly increased in size since the prior echo exam. Right atrial size is normal and has significantly decreased in size. There is moderate mitral regurgitation that is unchanged compared to the previous study, and mild to moderate tricuspid regurgitation that has significantly improved compared to the previous study. The ascending aorta is at the upper limits of normal in size and unchanged compared to the previous study. There is no pleural effusion seen, suggesting resolution of the previously seen effusions on the previous study. Additional Diagnostics DATE COLLECTED:06/02/2016 16:33 SPECIMEN: Lung Biopsy CLINICAL HISTORY: RIGHT LUNG MASS 1). RIGHT LOWER LUNG MASS FINAL DIAGNOSIS: 1.BIOPSIES, RIGHT LOWER LUNG MASS: MINUTE FRAGMENTS OF PULMONARY TISSUE WITH DILATED AIR SPACES CONSISTENT WITH EMPHYSEMA. TWO FRAGMENTS OF PULMONARY TISSUE WITH PROMINENT NONSPECIFIC FIBROSIS. NEGATIVE FOR EVIDENCE OF NEOPLASM. GROSS DESCRIPTION: The specimen is received in one formalin filled container labeled with the patient's name, sublabeled "right lung mass" and consists of multiple white garcia tiny fragments of cylindrical shaped tissue which aggregate to 0.5 x 0.1 x 0.1 CM. The specimen is filtered and entirely submitted in one cassette. 06/02/2016 [facility] MICRO DESCRIPTION: See diagnosis. Assessment & Plan 75-year-old male admitted 05/28/16 with pneumonia/pulmonary hemorrhage. He was in acute respiratory failure that seems to have resolved overnight after admission. # Right side peripheral lung mass-a CT-guided needle biopsy was performed 2016. - Patient developed a postprocedure pneumothorax and had a chest tube placed - Lung biopsy x 2 negative for neoplasm - f/u pending PCR studies as well as additional histopath with special stains. - Appreciate ID and pulmonology consults. will f/u w/ recs # Acute pneumothorax. iatrogenic. not present on admission. improving - appreciate pulmonology consult. will f/u w/ recs - chest tube clamping and removal per pulmonology # Hemoptysis-present on admission. ongoing but improved - f/u - w/u as noted above # Pulmonary Hemorrhage/Pneumonia- seems to have stabilized with reversal of warfarin/anticoagulation. - DVT/ +/-PE (int prob v/q) 01/18/16, Doppler/CT angiogram negative for clot/PE 05/30 # Acute blood loss anemia Hgb remains stable - Corrected supra-therapeutic INR with vitamin K given on 05/29/16 - continue to hold anticoagulation # COPD Exacerbation/Pneumonia. Acute present on admission. Improved - IV Levaquin was given from 05/28-05/31/16, Levaquin was changed to 500mg by mouth q48 -06/03 and has subsequently been discontinued. - continue to taper prednisone - Continue Oxygen by NC # HTN/CHF/Valvular Heart Disease and Cardiomyopathy - Suspect patient has hypertensive heart disease and unsure about the cause of his valvular disease - Continue his usual Cardiac medicines of losartan, metoprolol, Lasix. - The BNP was 847. Patient does not seem clinically to be in overt heart failure, would use IV fluids cautiously # JG/Chronic Kidney Disease 3-JG resolved, IV fluids discontinued 05/31 - Creatinine was 1.64 on 05/29 - Creatinine today is 1.19 slightly up from 1.06 # Thrombocytopenia improved - The patient's baseline platelet seemed to be around 90,000 historically - Now stabilized - Lovenox DVT prophylaxis is on hold due to the pulmonary hemorrhage and hemoptysis. # Supra-therapeutic INR - resolved. as noted above # DVT/PE 02/01-patient is coming up on 6 months of therapy with there are ongoing issues risk of warfarin outweighs benefit at this point in time and will likely be discontinued. Disposition: Patient will likely he will go home in 2 - 3 days after his chest tube was able to be removed. GI Prophylaxis: Proton Pump Inhibitor VTE Prophylaxis: Theraputic Anticoag with Warfarin VTE Mechanical Devices: Intermittant Pneumatic CD Resuscitation Status: CPR: Attempt Resuscitation Time spent 35 min Carlos Manuel Pringle Jun 13, 2016 16:28
[2016-06-13] MEDS: 0.9% Sodium Chloride 1,000 ML IV SCH (17:23)
[2016-06-14] VITALS (7 sets, daily range): BP systolic 122–142; BP diastolic 47–61; PULSE 64–73; RESP 18; O2SAT 95–98
[2016-06-14] MEDS: 0.9% Sodium Chloride 1,000 ML IV SCH ×2 (05:55→17:24)
--- NOTE | 2016-06-14 05:57 | NUR ---
Tube Drainage. Pt has had no complications with chest tube this shift, continues to drain minimal amount of sero-sanguineous drainage. Pt able to independently get from bed, to chair, to BSC with out any difficulties.
[2016-06-14] MEDS: FORMOTEROL FUMARATE INHALATION SCH ×2 (07:09→21:08)
[2016-06-14] MEDS: Albuterol-Ipratropium 3 mL Inhalation Solution NEB SCH ×4 (07:09→21:08)
[2016-06-14] MEDS: predniSONE 10 mg Tablet PO SCH (08:24)
[2016-06-14] MEDS: MeTOProlol XL 50 mg ER24 Tablet PO SCH ×2 (08:24→19:31)
[2016-06-14] MEDS: Pantoprazole 40 mg ER24 Tablet PO SCH (08:24)
[2016-06-14] MEDS: Senna-Docusate 8.6-50 mg Tablet PO SCH (08:24)
[2016-06-14] MEDS: Fluticasone 100 mCg Inhaler INHALATION SCH ×2 (08:24→19:31)
--- NOTE | 2016-06-14 08:24 | PROG NOTE ---
[address] [address] PROGRESS NOTE PATIENT: Enriqueta CERVANTES : 1940 MR#: [id number] ADMIT: 05/28/2016 JOB ID: [id number] DATE: 06/13/2016 PULMONARY PROGRESS NOTE: The patient is a 76-year-old man with and emphysema and lung mass status post CT-guided biopsy twice with iatrogenic pneumothorax. INTERVAL HISTORY: He continues to cough up bloody sputum which he has been doing for a couple of weeks. Denies fevers, chills. Denies chest pain or shortness of breath. REVIEW OF SYSTEMS: As above. PHYSICAL EXAMINATION: Vital signs reviewed. He is afebrile. Pulse 72, respirations 20, BP 117/61, sats 98% on 1 L nasal cannula. Pleasant gentleman sitting up in a chair. Chest tube is to suction with no air leak. LABORATORIES: Reviewed. Chest x-ray is reviewed and shows complete resolution of minimal previously seen pneumothorax. ASSESSMENT AND RECOMMENDATIONS: 1. Bilateral right greater than left lung masses. 2. Severe emphysema. 3. Iatrogenic pneumothorax following CT-guided biopsy. I received a call from the radiologist with a preliminary report saying they are not seeing any evidence of malignancy on the second CT-guided biopsy samples either. They are going to do additional testing for infectious processes including AFB and fungal stains. Also Dr. Oshea has been following the patient and has requested AFB and fungal PCRs on the tissue samples. This is still pending at the [facility]. I reviewed the patient's CT scan once again. He does have severe upper lobe predominant emphysema. He does have evidence of consolidation in the right lower lobe with a lateral right lower lobe mass measuring around 5 cm. It is well rounded and does not have the appearance of rounded atelectasis. There is a satellite lesion right next to it. There is also another small spiculated mass in the left lower lobe in the posterior lateral segment which is smaller-approximately 2 cm or less. Now after two attempts at biopsying the right mass, we do not yet have a diagnosis of malignancy. Infectious Disease is following the patient and pursuing alternative diagnoses. The other possibility to consider would be an autoimmune process although unlikely, rheumatoid nodules, vasculitides could have this appearance. I would recommend checking NAMAN, ANCA, rheumatoid factor, anti CCP, etc. and I ordered all of these. With regards to his chest tube, I am going to repeat a chest x-ray and if the pneumothorax continues to be resolved, we can put the chest tube to water seal and repeat another chest x-ray. I suspect we can have the chest tube removed either tomorrow or so if there is no evidence of recurrence of pneumothorax on water seal.
[2016-06-14 08:32] LABS: Mean Corpuscular Hemoglobin 30.1 pg (27.0-35.0); Mean Corpuscular Volume 94.8 fL (81-100)
[2016-06-14] MEDS ORDERED: Fluticasone 100 mCg Inhaler INHALATION ONE (09:18)
--- NOTE | 2016-06-14 14:42 | PCM.PNMED ---
Subjective Date of Service Jun 14, 2016 Subjective denies any new issues/complaints. continues to have some hemoptysis Exam Vital Signs Vital Sign - Last Date Time Temp Pulse Resp B/P Pulse Ox O2 Delivery O2 Flow Rate FiO2 06/14/16 13:00 36.7 64 18 131/47 98 Nasal Cannula 1.00 Intake and Output 06/13/16 06/13/16 06/14/16 Cumulative From/Thru 15:00 23:00 07:00 05/28/16 14:05 - 06/14/16 06:09 Intake Total 997 ml 1733 ml 65393 ml Output Total 1500 ml 1250 ml 87060 ml Balance -503 ml 483 ml -4316 ml Intake Oral 987 ml 718 ml 15685 ml IV Total 10 ml 1015 ml 72848 ml Output Urine Total 1500 ml 1250 ml 76132 ml Emesis 4 ml Chest Tube Drainage Total 95 ml Drainage Total 141 ml # Voids 11 # Bowel Movements 1 26 Exam General: Alert, Cooperative, No Acute Distress Eyes: Scleral Anicteric Mouth: Mucous Membr Moist/[place] Neck: Supple Chest & Lungs: Clear to auscultation & percussion, Other (chest tube in place in the right lower ) Cardiovascular: Regular Rate/Rhythm Abdomen: Non-tender, Non-distended, Normoactive bowel tones, Soft Extremities: No cyanosis/clubbing/edema bilat Neurological: Grossly Neurologically Intact, Normal Speech IVs and Medications Medications Reviewed: Medications were reviewed in detail Lab and Diagnostics Result Diagram: 06/14/16 0500 06/14/16 0730 Microbiology Cultures are negative at 5 days. X-Rays, CTs and MRIs . X-RAY CHEST ONE VIEW, PORTABLE 05/28/2016 IMPRESSION: Right mid and lower lung patchy radiopacities suspicious for aspiration/infection superimposed on severe centrilobular emphysema. Short interval followup is recommended to ensure resolution of this finding and exclude underlying pulmonary pathology. X-RAY CHEST, TWO VIEWS 05/30/2016 IMPRESSION: 1. Mid right and lower lung diffuse interstitial opacities redemonstrated not significantly changed which may be related to aspiration/infection but pulmonary hemorrhage cannot be excluded. If indicated chest CT scan could be performed for further characterization. 2. Emphysematous changes redemonstrated. X-RAY CHEST, TWO VIEWS 06/03/2016 IMPRESSION: Trace apical right sided pneumothorax. X-RAY CHEST ONE VIEW, PORTABLE 06/05/2016 IMPRESSION: Resolved right pneumothorax and patchy opacity in the right lung base as well as focal opacity, stable compared to prior exam. Continued radiographic surveillance to resolution is recommended. X-RAY CHEST, TWO VIEWS 06/06/2016 IMPRESSION: Resolved trace right pneumothorax otherwise no change from prior exam. Continued radiographic surveillance to resolution is recommended. CT ANGIO CHEST PULMONARY EMBOLISM 05/30/2016 IMPRESSION: 1. Consolidative airspace opacity throughout the right lower lobe suspicious for aspiration/infection. Aspiration secondary to hemoptysis could also cause this appearance. 2. Discrete mass lesion within the lateral aspect of the right lower lobe. This finding is suspicious for a discrete neoplastic mass. Additionally, 2 spiculated lesions are present within the left lung base suspicious for neoplastic lesions. If clinically indicated, the right lower lobe mass may be amenable to CT-guided percutaneous biopsy. Of note, the patient is at increased risk for complication such as pneumothorax given the extensive emphysematous disease. 3. Solitary enlarged subcarinal lymph node. Differential considerations include reactive/infectious etiologies and korin metastasis. 4. No acute pulmonary embolus. 1. CT-guided lung biopsy. 06/02/[address]-guided chest tube placement. IMPRESSION: 1. CT guided chest tube placement for treatment of pneumothorax encountered during lung biopsy. 2. Successful CT-guided biopsy of left lung base nodule. US VENOUS LEG DUPLEX BILATERAL 05/30/2016 IMPRESSION: No deep venous thrombosis identified within either the left or right lower extremities. PROCEDURE: X-RAY CHEST, TWO VIEWS IMPRESSION: Resolved trace right pneumothorax otherwise no change from prior exam. Continued radiographic surveillance to resolution is recommended. Cardiac Echo Impressions . Echocardiogram Report: Interpretation Summary Left ventricular systolic function is moderately reduced with the ejection fraction estimated to be 40-45% but has significantly improved compared to the prior exam. There is mild to moderate global hypokinesis that is significantly improved compared to the previous study but remains worse in the distal anteroseptum, apex, and periapical sgemtns which are essentially akinetic and unchanged from the previous study. Assessment of diastolic parameters indicates a relaxation abnormality of the left ventricle, consistent with normal filling pressures, and is unchanged compared to the previous study. The right ventricle is normal in size and function and has markedly improved compared to the previous study. The right ventricular systolic pressure is estimated at 39 mmHg assuming a right atrial pressure of 3 mm Hg, and is likely significantly lower compared to the previous study. The left atrium is mildly dilated and has mildly increased in size since the prior echo exam. Right atrial size is normal and has significantly decreased in size. There is moderate mitral regurgitation that is unchanged compared to the previous study, and mild to moderate tricuspid regurgitation that has significantly improved compared to the previous study. The ascending aorta is at the upper limits of normal in size and unchanged compared to the previous study. There is no pleural effusion seen, suggesting resolution of the previously seen effusions on the previous study. Additional Diagnostics DATE COLLECTED:06/02/2016 16:33 SPECIMEN: Lung Biopsy CLINICAL HISTORY: RIGHT LUNG MASS 1). RIGHT LOWER LUNG MASS FINAL DIAGNOSIS: 1.BIOPSIES, RIGHT LOWER LUNG MASS: MINUTE FRAGMENTS OF PULMONARY TISSUE WITH DILATED AIR SPACES CONSISTENT WITH EMPHYSEMA. TWO FRAGMENTS OF PULMONARY TISSUE WITH PROMINENT NONSPECIFIC FIBROSIS. NEGATIVE FOR EVIDENCE OF NEOPLASM. GROSS DESCRIPTION: The specimen is received in one formalin filled container labeled with the patient's name, sublabeled "right lung mass" and consists of multiple white garcia tiny fragments of cylindrical shaped tissue which aggregate to 0.5 x 0.1 x 0.1 CM. The specimen is filtered and entirely submitted in one cassette. 06/02/2016 [facility] MICRO DESCRIPTION: See diagnosis. Assessment & Plan 75-year-old male admitted 05/28/16 with pneumonia/pulmonary hemorrhage. He was in acute respiratory failure that seems to have resolved overnight after admission. # Right side peripheral lung mass-a CT-guided needle biopsy was performed 2016. - Patient developed a postprocedure pneumothorax and had a chest tube placed - Lung biopsy x 2 negative for neoplasm - f/u pending PCR studies as well as additional histopath with special stains. - Appreciate ID and pulmonology consults. will f/u w/ recs # Acute pneumothorax. iatrogenic. not present on admission. improving - appreciate pulmonology consult. will f/u w/ recs - chest tube clamping and removal per pulmonology # Hemoptysis-present on admission. ongoing but improved - f/u - w/u as noted above # Pulmonary Hemorrhage/Pneumonia- seems to have stabilized with reversal of warfarin/anticoagulation. - DVT/ +/-PE (int prob v/q) 01/18/16, Doppler/CT angiogram negative for clot/PE 05/30 # Acute blood loss anemia Hgb remains stable - Corrected supra-therapeutic INR with vitamin K given on 05/29/16 - continue to hold anticoagulation # COPD Exacerbation/Pneumonia. Acute present on admission. Improved - IV Levaquin was given from 05/28-05/31/16, Levaquin was changed to 500mg by mouth q48 -06/03 and has subsequently been discontinued. - continue to taper prednisone - Continue Oxygen by NC # HTN/CHF/Valvular Heart Disease and Cardiomyopathy - Suspect patient has hypertensive heart disease and unsure about the cause of his valvular disease - Continue his usual Cardiac medicines of losartan, metoprolol, Lasix. - The BNP was 847. Patient does not seem clinically to be in overt heart failure, would use IV fluids cautiously # JG/Chronic Kidney Disease 3 - resolved with IVF # Thrombocytopenia improved - The patient's baseline platelet seemed to be around 90,000 historically - Now stabilized - Lovenox DVT prophylaxis is on hold due to the pulmonary hemorrhage and hemoptysis. # Supra-therapeutic INR - resolved. as noted above # DVT/PE 02/01-patient is coming up on 6 months of therapy with there are ongoing issues risk of warfarin outweighs benefit at this point in time and will likely be discontinued. Disposition: Patient will likely he will go home in 2 - 3 days after his chest tube removed. GI Prophylaxis: Proton Pump Inhibitor VTE Prophylaxis: Theraputic Anticoag with Warfarin VTE Mechanical Devices: Intermittant Pneumatic CD Resuscitation Status: CPR: Attempt Resuscitation Carlos Manuel Pringle Jun 14, 2016 14:42
--- NOTE | 2016-06-14 18:24 | NUR ---
Chest tube/activity Pt compliant with elevating LE's while sitting in recliner at bedside. He continues to deny any px/discomfort. Chest tube remains in place, drsg is CDI.Suction remains at 20 and drsg is CDI. Total chest tube output 25ml this shift of serious fluid. He continues to cough up moderate amount of blood. Pt currently resting comfortably in recliner, call light in reach
[2016-06-15] VITALS (7 sets, daily range): BP systolic 126–164; BP diastolic 56–72; PULSE 64–88; RESP 16–18; O2SAT 93–98
[2016-06-15] MEDS: Albuterol-Ipratropium 3 mL Inhalation Solution NEB SCH ×4 (05:45→20:20)
[2016-06-15] MEDS: FORMOTEROL FUMARATE INHALATION SCH ×2 (05:45→20:21)
[2016-06-15] MEDS: 0.9% Sodium Chloride 1,000 ML IV SCH (06:00)
--- NOTE | 2016-06-15 06:25 | NUR ---
IV fluids Refusal At end of shift this Rn went to hang a new bag of fluids and Pt politely declined treatment. Pt said he has been "peeing my brains out" and that he didn't see the need for it any more.
[2016-06-15] MEDS: Fluticasone 100 mCg Inhaler INHALATION SCH ×2 (07:38→19:52)
[2016-06-15] MEDS: MeTOProlol XL 50 mg ER24 Tablet PO SCH ×2 (07:40→19:52)
[2016-06-15] MEDS: Pantoprazole 40 mg ER24 Tablet PO SCH (07:40)
[2016-06-15] MEDS: Senna-Docusate 8.6-50 mg Tablet PO SCH (07:40)
[2016-06-15] MEDS: predniSONE 10 mg Tablet PO SCH (07:40)
[2016-06-15 11:08] LABS: RNP Antibodies <0.2 AI (0.0-0.9)
--- NOTE | 2016-06-15 11:37 | NUR ---
NUTRITION FOLLOW-UP: ASSESS: 75 YO male admitted for pulmonary hemorrhage, COPD exacerbation and Pneumonia. Pt has R sided peripheral lung mass and is s/p CT guided needle biopsy resulting in a pneumothorax x 2 which required chest tube placement x 2. Chest tube will hopefully be able to be placed to water seal soon. Pt continues to have excellent po intake. PMHx: CHF, COPD, tobacco and alcohol abuse, acute kidney injury, DVT bilateral LE. LABS: Reviewed. MEDS: Reviewed. GI: BM x 1 (06/15) CURRENT WT: 78.9 kg. Admit wt: 77.4 kg (05/28/16) DIET: General. PO intake 100%. EST. NEEDS: 7216-2190 kcals (25-30 kcals/kg BW), 75-116 g protein (1.0-1.5 g/kg BW) NUTRITION DIAGNOSIS: 1.) No nutritional diagnosis at this time. NUTRITION INTERVENTION: 1.) No nutritional intervention at this time. MONITOR / EVAL: PO intake, labs, nutritional status. Follow per low nutritional risk guidelines.
--- NOTE | 2016-06-15 11:39 | DRSVH ---
PROCEDURE: X-RAY CHEST ONE VIEW, PORTABLE ([id number]) INDICATIONS: f/u pneumothorax TECHNIQUE: One view of the chest was acquired. COMPARISON: Located Within [facility], CR, XR CHEST 1VW (PORTABLE), 06/10/2016, 5:33. [facility], CR, XR CHEST 1VW (PORTABLE), 06/12/2016, 7:50. Located Within [facility], CR, XR CHEST 1VW (CASANDRA BLE), 06/13/2016, 5:39. FINDINGS: Surgical changes and devices: Right chest wall pleural drainage catheter appears stable in position. Lungs and pleura: There is no discrete displaced pleural reflection but there is lucency in the righ t costophrenic angle laterally suggestive of a small residual loculated pneumothorax. This appears p rogressively decreased compared to prior studies. Right basilar mass and linear atelectasis are rede monstrated. Linear left basilar opacities are also compatible of atelectasis or scarring. Mediastinum: Mediastinal contours appear unchanged. Heart size is normal. Bones and chest wall: No suspicious bony lesions. Overlying soft tissues appear unremarkable. IMPRESSION: 1. Small residual right basilar loculated pneumothorax which appears progressively decreased compare d to prior studies. Dictated by: Maik Holcomb M.D. on 06/15/2016 at 11:33 Approved by: Maik Holcomb M.D. on 06/15/2016 at 11:37
--- NOTE | 2016-06-15 13:23 | PCM.PNMED ---
Subjective Date of Service Jun 15, 2016 Subjective denies any new issues/complaints. continues to have some hemoptysis Exam Vital Signs Vital Sign - Last Date Time Temp Pulse Resp B/P Pulse Ox O2 Delivery O2 Flow Rate FiO2 06/15/16 12:41 36.5 68 16 126/56 95 Nasal Cannula 1.00 Intake and Output 06/14/16 06/14/16 06/15/16 Cumulative From/Thru 15:00 23:00 07:00 05/28/16 14:05 - 06/15/16 06:26 Intake Total 884 ml 975 ml 22045 ml Output Total 25 ml 92295 ml Balance 859 ml 975 ml -2482 ml Intake Oral 14088 ml IV Total 884 ml 975 ml 71341 ml Output Urine Total 82063 ml Emesis 4 ml Chest Tube Drainage Total 25 ml 120 ml Drainage Total 141 ml # Voids 11 # Bowel Movements 26 Exam General: Alert, Cooperative, No Acute Distress Eyes: Scleral Anicteric Mouth: Mucous Membr Moist/[place] Neck: Supple Chest & Lungs: Clear to auscultation & percussion, Other (chest tube in place in the right lower ) Cardiovascular: Regular Rate/Rhythm Abdomen: Non-tender, Non-distended, Normoactive bowel tones, Soft Extremities: No cyanosis/clubbing/edema bilat Neurological: Grossly Neurologically Intact, Normal Speech IVs and Medications Medications Reviewed: Medications were reviewed in detail Lab and Diagnostics Result Diagram: 06/14/16 0500 06/14/16 0730 Microbiology Cultures are negative at 5 days. X-Rays, CTs and MRIs . X-RAY CHEST ONE VIEW, PORTABLE 05/28/2016 IMPRESSION: Right mid and lower lung patchy radiopacities suspicious for aspiration/infection superimposed on severe centrilobular emphysema. Short interval followup is recommended to ensure resolution of this finding and exclude underlying pulmonary pathology. X-RAY CHEST, TWO VIEWS 05/30/2016 IMPRESSION: 1. Mid right and lower lung diffuse interstitial opacities redemonstrated not significantly changed which may be related to aspiration/infection but pulmonary hemorrhage cannot be excluded. If indicated chest CT scan could be performed for further characterization. 2. Emphysematous changes redemonstrated. X-RAY CHEST, TWO VIEWS 06/03/2016 IMPRESSION: Trace apical right sided pneumothorax. X-RAY CHEST ONE VIEW, PORTABLE 06/05/2016 IMPRESSION: Resolved right pneumothorax and patchy opacity in the right lung base as well as focal opacity, stable compared to prior exam. Continued radiographic surveillance to resolution is recommended. X-RAY CHEST, TWO VIEWS 06/06/2016 IMPRESSION: Resolved trace right pneumothorax otherwise no change from prior exam. Continued radiographic surveillance to resolution is recommended. CT ANGIO CHEST PULMONARY EMBOLISM 05/30/2016 IMPRESSION: 1. Consolidative airspace opacity throughout the right lower lobe suspicious for aspiration/infection. Aspiration secondary to hemoptysis could also cause this appearance. 2. Discrete mass lesion within the lateral aspect of the right lower lobe. This finding is suspicious for a discrete neoplastic mass. Additionally, 2 spiculated lesions are present within the left lung base suspicious for neoplastic lesions. If clinically indicated, the right lower lobe mass may be amenable to CT-guided percutaneous biopsy. Of note, the patient is at increased risk for complication such as pneumothorax given the extensive emphysematous disease. 3. Solitary enlarged subcarinal lymph node. Differential considerations include reactive/infectious etiologies and korin metastasis. 4. No acute pulmonary embolus. 1. CT-guided lung biopsy. 06/02/[address]-guided chest tube placement. IMPRESSION: 1. CT guided chest tube placement for treatment of pneumothorax encountered during lung biopsy. 2. Successful CT-guided biopsy of left lung base nodule. US VENOUS LEG DUPLEX BILATERAL 05/30/2016 IMPRESSION: No deep venous thrombosis identified within either the left or right lower extremities. PROCEDURE: X-RAY CHEST, TWO VIEWS IMPRESSION: Resolved trace right pneumothorax otherwise no change from prior exam. Continued radiographic surveillance to resolution is recommended. Cardiac Echo Impressions . Echocardiogram Report: Interpretation Summary Left ventricular systolic function is moderately reduced with the ejection fraction estimated to be 40-45% but has significantly improved compared to the prior exam. There is mild to moderate global hypokinesis that is significantly improved compared to the previous study but remains worse in the distal anteroseptum, apex, and periapical sgemtns which are essentially akinetic and unchanged from the previous study. Assessment of diastolic parameters indicates a relaxation abnormality of the left ventricle, consistent with normal filling pressures, and is unchanged compared to the previous study. The right ventricle is normal in size and function and has markedly improved compared to the previous study. The right ventricular systolic pressure is estimated at 39 mmHg assuming a right atrial pressure of 3 mm Hg, and is likely significantly lower compared to the previous study. The left atrium is mildly dilated and has mildly increased in size since the prior echo exam. Right atrial size is normal and has significantly decreased in size. There is moderate mitral regurgitation that is unchanged compared to the previous study, and mild to moderate tricuspid regurgitation that has significantly improved compared to the previous study. The ascending aorta is at the upper limits of normal in size and unchanged compared to the previous study. There is no pleural effusion seen, suggesting resolution of the previously seen effusions on the previous study. Additional Diagnostics DATE COLLECTED:06/02/2016 16:33 SPECIMEN: Lung Biopsy CLINICAL HISTORY: RIGHT LUNG MASS 1). RIGHT LOWER LUNG MASS FINAL DIAGNOSIS: 1.BIOPSIES, RIGHT LOWER LUNG MASS: MINUTE FRAGMENTS OF PULMONARY TISSUE WITH DILATED AIR SPACES CONSISTENT WITH EMPHYSEMA. TWO FRAGMENTS OF PULMONARY TISSUE WITH PROMINENT NONSPECIFIC FIBROSIS. NEGATIVE FOR EVIDENCE OF NEOPLASM. GROSS DESCRIPTION: The specimen is received in one formalin filled container labeled with the patient's name, sublabeled "right lung mass" and consists of multiple white garcia tiny fragments of cylindrical shaped tissue which aggregate to 0.5 x 0.1 x 0.1 CM. The specimen is filtered and entirely submitted in one cassette. 06/02/2016 DAC MICRO DESCRIPTION: See diagnosis. Assessment & Plan 75-year-old male admitted 05/28/16 with pneumonia/pulmonary hemorrhage. He was in acute respiratory failure that seems to have resolved overnight after admission. # Right side peripheral lung mass-a CT-guided needle biopsy was performed 2016. - Patient developed a postprocedure pneumothorax and had a chest tube placed - Lung biopsy x 2 negative for neoplasm - PCR studies and culture negative so far - Appreciate ID and pulmonology consults. will f/u w/ recs # Acute pneumothorax. iatrogenic. not present on admission. improving - appreciate pulmonology consult. will f/u w/ recs - chest tube clamping and removal per pulmonology # Hemoptysis-present on admission. ongoing but improved - f/u - w/u as noted above # Pulmonary Hemorrhage/Pneumonia- seems to have stabilized with reversal of warfarin/anticoagulation. - DVT/ +/-PE (int prob v/q) 01/18/16, Doppler/CT angiogram negative for clot/PE 05/30 # Acute blood loss anemia Hgb remains stable - Corrected supra-therapeutic INR with vitamin K given on 05/29/16 - continue to hold anticoagulation # COPD Exacerbation/Pneumonia. Acute present on admission. Improved - IV Levaquin was given from 05/28-05/31/16, Levaquin was changed to 500mg by mouth q48 -06/03 and has subsequently been discontinued. - continue to taper prednisone - Continue Oxygen by NC # HTN/CHF/Valvular Heart Disease and Cardiomyopathy - Suspect patient has hypertensive heart disease and unsure about the cause of his valvular disease - Continue his usual Cardiac medicines of losartan, metoprolol, Lasix. - The BNP was 847. Patient does not seem clinically to be in overt heart failure, would use IV fluids cautiously # JG/Chronic Kidney Disease 3 - resolved with IVF # Thrombocytopenia improved - The patient's baseline platelet seemed to be around 90,000 historically - Now stabilized - Lovenox DVT prophylaxis is on hold due to the pulmonary hemorrhage and hemoptysis. # Supra-therapeutic INR - resolved. as noted above # DVT/PE 02/01-patient is coming up on 6 months of therapy with there are ongoing issues risk of warfarin outweighs benefit at this point in time and will likely be discontinued. Disposition: ? home vs transfer for further CT surgery pending chest tube removal and further recs by pulmonology GI Prophylaxis: Proton Pump Inhibitor VTE Prophylaxis: Theraputic Anticoag with Warfarin VTE Mechanical Devices: Intermittant Pneumatic CD Resuscitation Status: CPR: Attempt Resuscitation Carlos Manuel Pringle Jun 15, 2016 13:23
--- NOTE | 2016-06-15 13:24 | PROG NOTE ---
[address] [address] PROGRESS NOTE PATIENT: Enriqueta CERVANTES : 1940 MR#: [id number] ADMIT: 05/28/2016 JOB ID: [id number] DATE: 06/15/2016 PULMONARY PROGRESS NOTE: The patient is a 76-year-old man with emphysema and lung mass, status post CT-guided biopsy with iatrogenic pneumothorax. INTERVAL HISTORY: He continues to deny any complaints of cough, shortness of breath, chest pain. He is still coughing up bloody sputum that is unchanged. REVIEW OF SYSTEMS: No fever, chills, sweats. PHYSICAL EXAMINATION: Vital signs reviewed. Temperature 36.5, pulse 82, respirations 18, BP 126/56, sats 98% on 1 L nasal cannula. General: Sitting in chair, alert, appropriate. Chest: Poor air movement bilaterally. Right-sided pigtail chest tube with no air leak, to 20 cm of suction. DIAGNOSTIC DATA: Imaging: Chest x-ray reviewed and shows complete resolution of previously seen pneumothorax with small pigtail tube in appropriate position in the right lower lateral chest. Pathology report from the lung biopsy June 09: Fragments of benign alveolar parenchymal with reactive pneumocytes. AFB and GMS stains are negative for mycobacterial and fungal organisms. So far, no positive results on tissue cultures on sample obtained June 09 and on PCR. ASSESSMENT AND RECOMMENDATIONS: 1. Bilateral right greater than left lung masses. 2. Severe emphysema. 3. Iatrogenic pneumothorax following CT-guided biopsy. Final report from the pathologist says there is no evidence of malignancy on now this 2nd attempted biopsy of this lung mass. While appearance is highly suspicious for malignancy, I agree with Dr. Oshea regarding working up for infectious etiologies. The PCRs would really be the most definitive answer, although if there is a fungus or acid-fast bacillus in this lesion, I would expect them to grown on cultures, but it may be slower. Symptom-esparza, the patient is completely asymptomatic except for his ongoing hemoptysis for many weeks. With regards to his chest tube, his pneumothorax has resolved. I am going to put his chest tube to water seal today and repeat a chest x-ray later today. As long as this is stable tomorrow as well, I think we should be able to remove the chest tube tomorrow. If all of the infectious workup listed above is negative, then I think our next best step is to let the patient go home and have him come back with a repeat chest CT in about two months to see if there is any improvement in these bilateral "masses." The other thing I would do is get a PET scan in a couple of months to see what the activity in these masses is. Beyond that, I am not sure there is anything to be gained by surgical biopsy or by repeating a CT-guided biopsy in this patient.
--- NOTE | 2016-06-15 17:01 | DRSVH ---
PROCEDURE: X-RAY CHEST ONE VIEW, PORTABLE ([id number]) INDICATIONS: chest tube to water seal. ? pneumo TECHNIQUE: One view of the chest was acquired. COMPARISON: [facility], CR, XR CHEST 1VW (PORTABLE), 06/13/2016, 5:39. [facility], CR, XR CHEST 1VW (PORTABLE), 06/12/2016, 7:50. [facility], CR, XR CHEST 1VW (CASANDRA BLE), 06/15/2016, 11:14. FINDINGS: Surgical changes and devices: Right pigtail pleural drain projected over the peripheral right lung ba se. Lungs and pleura: No definite right pneumothorax. Right basilar focal masslike density redemonstrate d in interstitial opacities present within the lung bases unchanged. Mediastinum: Mediastinal contours appear normal. Heart size is normal. Bones and chest wall: No suspicious bony lesions. Overlying soft tissues appear unremarkable. IMPRESSION: 1. No definite right pneumothorax and stable positioning of right basilar pleural drain. 2. Right lung base masslike opacity and interstitial densities unchanged. Dictated by: Sudhakar Jo Guzman Interpreted: Young Matthew MD on 06/15/2016 at 17:00 Transcribed by: STEVE on 06/15/2016 at 17:01 Approved by: Young Matthew M.D. on 06/16/2016 at 16:22
--- NOTE | 2016-06-15 18:22 | NUR ---
Chest tube/activity Chest tube remains in place, drsg is CDI. Per MD order, CT changed to water seal this afternoon. Total chest tube output 15ml this shift of serious fluid. He continues to cough up moderate amount of blood. Pt tolerating activity well transferring ind from bed to recliner to BSC. Pt currently resting comfortably in recliner, call light in reach.
[2016-06-16] VITALS (8 sets, daily range): BP systolic 119–145; BP diastolic 60–75; PULSE 67–89; RESP 16–20; O2SAT 93–98
--- NOTE | 2016-06-16 07:11 | NUR ---
Tube Clamped At 2200 Dr. Foley called and ordered this RN to clamp chest tube. Tube clamped at 2200. No change in respiratory status this shift. Pt in good spirits and hoping for discharge in AM.
[2016-06-16] MEDS: Albuterol-Ipratropium 3 mL Inhalation Solution NEB SCH ×4 (07:13→20:25)
[2016-06-16] MEDS: FORMOTEROL FUMARATE INHALATION SCH ×2 (07:13→20:25)
[2016-06-16] MEDS: Fluticasone 100 mCg Inhaler INHALATION SCH ×2 (08:22→20:01)
[2016-06-16] MEDS: MeTOProlol XL 50 mg ER24 Tablet PO SCH ×2 (08:22→20:01)
[2016-06-16] MEDS: predniSONE 10 mg Tablet PO SCH (08:22)
[2016-06-16] MEDS: Pantoprazole 40 mg ER24 Tablet PO SCH (08:22)
[2016-06-16] MEDS: Senna-Docusate 8.6-50 mg Tablet PO SCH (08:26)
--- NOTE | 2016-06-16 10:00 | DRSVH ---
PROCEDURE: X-RAY CHEST ONE VIEW, PORTABLE ([id number]) INDICATIONS: f/u pneumo. chest tube clamped TECHNIQUE: One view of the chest was acquired. COMPARISON: [facility], CR, XR CHEST 1VW (PORTABLE), 06/15/2016, 15:52. FINDINGS: Surgical changes and devices: Right pigtail pleural drain projected over the peripheral right lung ba se. Lungs and pleura: No definite right pneumothorax. Right basilar focal masslike density redemonstrate d and interstitial opacities present within the lung bases unchanged. Mediastinum: Mediastinal contours appear normal. Heart size is normal. Bones and chest wall: No suspicious bony lesions. Overlying soft tissues appear unremarkable. IMPRESSION: Stable chest. Dictated by: Sudhakar Jo RRA Interpreted: Siena Choi MD on 06/16/2016 at 9:58 Transcribed by: JAQUAN on 06/16/2016 at 9:59 Approved by: Siena Choi MD, PhD on 06/16/2016 at 16:35
--- NOTE | 2016-06-16 10:25 | NUR ---
EFRAIN signed Verbal permission to sign by pt's daughter over the phone. MIGUEL Recinos
--- NOTE | 2016-06-16 13:19 | DRSVH ---
PROCEDURE: X-RAY FLUORO BY RAD LESS THAN 1 HOUR ([id number]) INDICATIONS: PULL CHEST TUBE/PER DR. CUNNINGHAM TO BE DONE IN XRAY TECHNIQUE: Real time fluoroscopy was performed of the thorax. COMPARISON: [facility], , XR CHEST 1VW (PORTABLE), 06/15/2016, 15:52. FINDINGS: Right basilar percutaneous pleural drain was removed under fluoroscopic guidance without im mediate complication. Followup chest x-ray will be performed. IMPRESSION: Removal of right basilar percutaneous pleural drain under fluoroscopy without any immedia te complication. Dictated by: Sudhakar DAVIS Interpreted: Young Cunningham MD on 06/16/2016 at 13:17 Transcribed by: STEVE on 06/16/2016 at 13:19 Approved by: Young Cunningham M.D. on 06/16/2016 at 16:23
[2016-06-16 14:09] LABS: Antiproteinase 3 (PR-3) Abs <3.5 U/mL (0.0-3.5); Perinuclear (P-ANCA) <1:20 titer (Neg:<1:20)
--- NOTE | 2016-06-16 15:33 | NUR ---
Social Work: Continued d/c planning Data: pt is on day 19 of hospitalization. EMR reviewed, pt discussed in rounds. states that pt likely to d/c over the weekend. INSTALLATION & MAINTENANCE EXECUTIVE spoke with pt's daughter who reports no needs at this time. INSTALLATION & MAINTENANCE EXECUTIVE will continue to follow. Assessment: Pt with caregiving from daughter at baseline. Plan: Pt will d/c home via POV when medically stable with daughter and [facility], RN/PT/OT. INSTALLATION & MAINTENANCE EXECUTIVE will continue to follow. MIGUEL Recinos
--- NOTE | 2016-06-16 16:34 | PCM.PNMED ---
Subjective Date of Service Jun 16, 2016 Subjective denies any new issues/complaints. continues to have some hemoptysis but says improving Exam Vital Signs Vital Sign - Last Date Time Temp Pulse Resp B/P Pulse Ox O2 Delivery O2 Flow Rate FiO2 06/16/16 16:15 89 20 97 Nasal Cannula 1.00 06/16/16 13:47 36.4 123/64 Intake and Output 06/15/16 06/15/16 06/16/16 Cumulative From/Thru 15:00 23:00 07:00 05/28/16 14:05 - 06/15/16 21:29 Intake Total 400 ml 1000 ml 29601 ml Output Total 1200 ml 2680 ml 42431 ml Balance -800 ml -1680 ml -4962 ml Intake Oral 400 ml 1000 ml 45682 ml IV Total 93380 ml Output Urine Total 1200 ml 2680 ml 97843 ml Emesis 4 ml Chest Tube Drainage Total 120 ml Drainage Total 141 ml # Voids 11 # Bowel Movements 1 29 Exam General: Alert, Cooperative, No Acute Distress Eyes: Scleral Anicteric Mouth: Mucous Membr Moist/[place] Neck: Supple Chest & Lungs: Clear to auscultation & percussion, Other (chest tube in place in the right lower and clamped) Cardiovascular: Regular Rate/Rhythm Abdomen: Non-tender, Non-distended, Normoactive bowel tones, Soft Extremities: No cyanosis/clubbing/edema bilat Neurological: Grossly Neurologically Intact, Normal Speech IVs and Medications Medications Reviewed: Medications were reviewed in detail Lab and Diagnostics Result Diagram: 06/14/16 0500 06/16/16 0520 Microbiology Cultures are negative at 5 days. X-Rays, CTs and MRIs . X-RAY CHEST ONE VIEW, PORTABLE 05/28/2016 IMPRESSION: Right mid and lower lung patchy radiopacities suspicious for aspiration/infection superimposed on severe centrilobular emphysema. Short interval followup is recommended to ensure resolution of this finding and exclude underlying pulmonary pathology. X-RAY CHEST, TWO VIEWS 05/30/2016 IMPRESSION: 1. Mid right and lower lung diffuse interstitial opacities redemonstrated not significantly changed which may be related to aspiration/infection but pulmonary hemorrhage cannot be excluded. If indicated chest CT scan could be performed for further characterization. 2. Emphysematous changes redemonstrated. X-RAY CHEST, TWO VIEWS 06/03/2016 IMPRESSION: Trace apical right sided pneumothorax. X-RAY CHEST ONE VIEW, PORTABLE 06/05/2016 IMPRESSION: Resolved right pneumothorax and patchy opacity in the right lung base as well as focal opacity, stable compared to prior exam. Continued radiographic surveillance to resolution is recommended. X-RAY CHEST, TWO VIEWS 06/06/2016 IMPRESSION: Resolved trace right pneumothorax otherwise no change from prior exam. Continued radiographic surveillance to resolution is recommended. CT ANGIO CHEST PULMONARY EMBOLISM 05/30/2016 IMPRESSION: 1. Consolidative airspace opacity throughout the right lower lobe suspicious for aspiration/infection. Aspiration secondary to hemoptysis could also cause this appearance. 2. Discrete mass lesion within the lateral aspect of the right lower lobe. This finding is suspicious for a discrete neoplastic mass. Additionally, 2 spiculated lesions are present within the left lung base suspicious for neoplastic lesions. If clinically indicated, the right lower lobe mass may be amenable to CT-guided percutaneous biopsy. Of note, the patient is at increased risk for complication such as pneumothorax given the extensive emphysematous disease. 3. Solitary enlarged subcarinal lymph node. Differential considerations include reactive/infectious etiologies and korin metastasis. 4. No acute pulmonary embolus. 1. CT-guided lung biopsy. 06/02/[address]-guided chest tube placement. IMPRESSION: 1. CT guided chest tube placement for treatment of pneumothorax encountered during lung biopsy. 2. Successful CT-guided biopsy of left lung base nodule. US VENOUS LEG DUPLEX BILATERAL 05/30/2016 IMPRESSION: No deep venous thrombosis identified within either the left or right lower extremities. PROCEDURE: X-RAY CHEST, TWO VIEWS IMPRESSION: Resolved trace right pneumothorax otherwise no change from prior exam. Continued radiographic surveillance to resolution is recommended. Cardiac Echo Impressions . Echocardiogram Report: Interpretation Summary Left ventricular systolic function is moderately reduced with the ejection fraction estimated to be 40-45% but has significantly improved compared to the prior exam. There is mild to moderate global hypokinesis that is significantly improved compared to the previous study but remains worse in the distal anteroseptum, apex, and periapical sgemtns which are essentially akinetic and unchanged from the previous study. Assessment of diastolic parameters indicates a relaxation abnormality of the left ventricle, consistent with normal filling pressures, and is unchanged compared to the previous study. The right ventricle is normal in size and function and has markedly improved compared to the previous study. The right ventricular systolic pressure is estimated at 39 mmHg assuming a right atrial pressure of 3 mm Hg, and is likely significantly lower compared to the previous study. The left atrium is mildly dilated and has mildly increased in size since the prior echo exam. Right atrial size is normal and has significantly decreased in size. There is moderate mitral regurgitation that is unchanged compared to the previous study, and mild to moderate tricuspid regurgitation that has significantly improved compared to the previous study. The ascending aorta is at the upper limits of normal in size and unchanged compared to the previous study. There is no pleural effusion seen, suggesting resolution of the previously seen effusions on the previous study. Additional Diagnostics DATE COLLECTED:06/02/2016 16:33 SPECIMEN: Lung Biopsy CLINICAL HISTORY: RIGHT LUNG MASS 1). RIGHT LOWER LUNG MASS FINAL DIAGNOSIS: 1.BIOPSIES, RIGHT LOWER LUNG MASS: MINUTE FRAGMENTS OF PULMONARY TISSUE WITH DILATED AIR SPACES CONSISTENT WITH EMPHYSEMA. TWO FRAGMENTS OF PULMONARY TISSUE WITH PROMINENT NONSPECIFIC FIBROSIS. NEGATIVE FOR EVIDENCE OF NEOPLASM. GROSS DESCRIPTION: The specimen is received in one formalin filled container labeled with the patient's name, sublabeled "right lung mass" and consists of multiple white garcia tiny fragments of cylindrical shaped tissue which aggregate to 0.5 x 0.1 x 0.1 CM. The specimen is filtered and entirely submitted in one cassette. 06/02/2016 [facility] MICRO DESCRIPTION: See diagnosis. Assessment & Plan 75-year-old male admitted 05/28/16 with pneumonia/pulmonary hemorrhage. He was in acute respiratory failure that seems to have resolved overnight after admission. # Right side peripheral lung mass-a CT-guided needle biopsy was performed 2016. - Patient developed a postprocedure pneumothorax and had a chest tube placed - Lung biopsy x 2 negative for neoplasm - PCR studies and culture negative so far - Appreciate ID and pulmonology consults. will f/u w/ recs # Acute pneumothorax. iatrogenic. not present on admission. seems resolved - appreciate pulmonology consult. will f/u w/ recs - chest tube removal per pulmonology # Hemoptysis-present on admission. ongoing but improved - further f/u w/ repeat imaging as outpatient # Pulmonary Hemorrhage/Pneumonia- seems to have stabilized with reversal of warfarin/anticoagulation. - DVT/ +/-PE (int prob v/q) 01/18/16, Doppler/CT angiogram negative for clot/PE 05/30 # Acute blood loss anemia Hgb remains stable - Corrected supra-therapeutic INR with vitamin K given on 05/29/16 - continue to hold anticoagulation # COPD Exacerbation/Pneumonia. Acute present on admission. Improved - IV Levaquin was given from 05/28-05/31/16, Levaquin was changed to 500mg by mouth q48 -06/03 and has subsequently been discontinued. - continue to taper prednisone - Continue Oxygen by NC # HTN/CHF/Valvular Heart Disease and Cardiomyopathy - Suspect patient has hypertensive heart disease and unsure about the cause of his valvular disease - Continue his usual Cardiac medicines of losartan, metoprolol, Lasix. - The BNP was 847. Patient does not seem clinically to be in overt heart failure, would use IV fluids cautiously # JG/Chronic Kidney Disease 3 - resolved with IVF # Thrombocytopenia improved - The patient's baseline platelet seemed to be around 90,000 historically - Now stabilized - Lovenox DVT prophylaxis is on hold due to the pulmonary hemorrhage and hemoptysis. # Supra-therapeutic INR - resolved. as noted above # DVT/PE 02/01-patient is coming up on 6 months of therapy with there are ongoing issues risk of warfarin outweighs benefit at this point in time and will likely be discontinued. Disposition: likely home in am after chest tube removal GI Prophylaxis: Proton Pump Inhibitor VTE Prophylaxis: Theraputic Anticoag with Warfarin VTE Mechanical Devices: Intermittant Pneumatic CD Resuscitation Status: CPR: Attempt Resuscitation Time spent 25 min Carlos Manuel Pringle Jun 16, 2016 16:34
--- NOTE | 2016-06-16 16:57 | PROG NOTE ---
[address] [address] PROGRESS NOTE PATIENT: Enriqueta CERVANTES : 1940 MR#: [id number] ADMIT: 05/28/2016 JOB ID: [id number] DATE: 06/16/2016 PULMONARY PROGRESS NOTE: The patient is a 76-year-old man with severe emphysema and bilateral lung masses, status post two attempts at CT-guided biopsy, complicated by iatrogenic pneumothorax and no diagnosis. INTERVAL HISTORY: He had chest tubes taken out by Interventional Radiology today and is doing well. No change in symptoms. Hemoptysis continues and has been ongoing for weeks. Denies any chest pain, cough, fevers. REVIEW OF SYSTEMS: As above. PHYSICAL EXAMINATION: Vital signs reviewed. He is afebrile. Pulse 89, respirations 20, BP 123/64, sats 97% on 1 L nasal cannula. General: Alert, oriented, pleasant. Chest: Poor air movement. LABORATORIES: Reviewed. ASSESSMENT AND RECOMMENDATIONS: 1. Bilateral right greater than left lung masses--appearance is highly suggestive of malignancy but now he has had two CT-guided lung biopsies, most recently on June 09, which does not show any evidence of malignancy. 2. Iatrogenic pneumothorax following CT-guided biopsy--resolved. Chest tube out today. 3. Severe emphysema. There was no evidence of reaccumulation of pneumothorax. IR removed his chest tube today. I ordered another chest x-ray for tomorrow morning to confirm there has been no reaccumulation of his pneumo. With regards to his lung masses, this has been really a challenging situation. The appearance of these masses in this high-risk patient with emphysema and smoking history is most consistent with a malignancy. However, he has had two attempted biopsies, both of which show no evidence of malignancy on them. Also both of these biopsies were complicated by pneumothorax, so these are not necessarily benign procedures at this point. Interestingly, his NAMAN is positive as is his double stranded DNA. Lab does not give us a titer on the NAMAN, so I am not sure what to make of it, but I suppose it is conceivable that these masses are some form of vasculitis, although I do think that is not very likely. I recommended to the primary team that he get a Rheumatology consult as an outpatient. He is also going to see Dr. Oshea in a couple of weeks. His AFB PCR on the tissue from the second biopsy attempt has come back negative but fungal PCR is still negative. I would like to see him back in clinic in about a month's time. At that point, if his lung masses persist, I would recommend getting a PET scan. He is okay for discharge from a pulmonary standpoint tomorrow as long as his chest x-ray shows no reaccumulation of pneumothorax. Plan was discussed with Dr. Pringle, as well as Dr. Oshea.
--- NOTE | 2016-06-16 17:24 | PROG NOTE ---
[address] [address] PROGRESS NOTE PATIENT: Enriqueta CERVANTES : 1940 MR#: [id number] ADMIT: 05/28/2016 JOB ID: [id number] DATE: 06/16/2016 REASON FOR FOLLOWUP: Pulmonary mass and nodules concerning for malignancy but no malignancy proven. INTERVAL HISTORY: The patient continues to have an intermittent low level hemoptysis. No fevers. No chills. No shortness of breath. He is anxious to be discharged. He is having no GI or symptoms. PHYSICAL EXAMINATION: Reveals an afebrile, comfortable gentleman. Temp 36.4, pulse 89, respiratory rate 20, blood pressure 123/64, saturating well on 1 L, and he does use home oxygen at home. He is awake and alert in a good mood. His oral cavity is benign. His lungs have decreased breath sounds bilaterally but no focality. Abdomen negative. LABORATORIES: Include white count 9600, platelets 158, creatinine 1.13. Procalcitonin is zero. Interestingly, NAMAN is positive and double-stranded DNA is positive. Cryptococcal antigen negative. Multiple studies on sputum are negative, including Gram stain, culture, and mycobacterial PCR. Fungal PCR from his lung biopsy is still pending, and AFB PCR and mentioned is actually from the lung biopsy. Cultures from that are negative as well. IMPRESSION: This is a very confusing case of an elderly gentleman who is at incredibly high risk for lung cancer and has radiographs that would be compatible. He has now had two separate lung biopsies with prolonged chest tube drainage following without any diagnosis. The histopath has not been positive for cancer, nor has been positive for any microorganisms, and we await still the fungal PCR which I am told by the laboratory will be back in a day or two. This patient was discussed in detail with Dr. Foley of Pulmonary today. We agreed the patient could probably go home, as his hemoptysis is low level and in fact declining. There is still no diagnosis, but we await the fungal PCR and other pending studies. Dr. Foley recommended that I see the patient in a couple weeks, as [place], and at that time consider reimaging his chest and seeing how he is doing. If there is more indications of possible cancer, PET scan will be done, and chest radiation therapy may be considered even without a tissue diagnosis based on the high probability of cancer. In addition, the patient will be seen in Rheumatology to evaluate his positive NAMAN and double-stranded DNA. RECOMMENDATIONS: 1. Follow up with Rheumatology. 2. Follow up with me in two weeks. An appointment card was provided and instructions given. 3. Okay to discharge today from ID point of view. Okay to call me if there are additional issues.
--- NOTE | 2016-06-16 18:25 | NUR ---
Chest Tube Pt's chest tube removed at 1200, dressing changed x 2 with moderate serious drainage. No s/s of infection or redness around site, last check dressing was c/d/i. Pt denies pain or discomfort in area.
[2016-06-17 04:35] VITALS: BP 122/50; PULSE 70; RESP 18; O2SAT 95
--- NOTE | 2016-06-17 05:16 | NUR ---
NOC shift note Patient slept well through the night, denied pain. Chest tube site dressing remained CDI. Vital signs stable, alert and oriented, cooperative with care.
--- NOTE | 2016-06-17 06:58 | DRSVH ---
PROCEDURE: X-RAY CHEST ONE VIEW, PORTABLE ([id number]) INDICATIONS: 76-year-old male with chest tube removal. Assess for pneumothorax. TECHNIQUE: One view of the chest was acquired. COMPARISON: [facility], CT, CT BX LUNG MEDIASTINUM, 06/09/2016, 12:37. [facility] pital, CR, XR CHEST 1VW (PORTABLE), 06/16/2016, 5:41. [facility], CR, XR CHEST 1VW (CASANDRA BLE), 06/15/2016, 15:52. [facility], CR, XR CHEST 1VW (PORTABLE), 06/15/2016, 11:14. FINDINGS: Surgical changes and devices: Right basilar pleural pigtail catheter has been withdrawn. Lungs and pleura: No pleural effusions or pneumothorax. Lungs are clear, except for previously biop sied lateral right lung base mass. Mediastinum: Mediastinal contours appear normal. Heart size is normal. There is aortic atheroscler osis. Bones and chest wall: No suspicious bony lesions. Overlying soft tissues appear unremarkable. IMPRESSION: 1. No pneumothorax status post interval withdrawal of right basilar pleural pigtail catheter. 2. Recently biopsied lateral right lung base mass appears unchanged. Dictated by: Brendan Alanis M.D. on 06/17/2016 at 6:55 Approved by: Brendan Alanis M.D. on 06/17/2016 at 6:57
[2016-06-17 07:17] VITALS: PULSE 54; RESP 20; O2SAT 97
[2016-06-17] MEDS: Albuterol-Ipratropium 3 mL Inhalation Solution NEB SCH ×2 (07:17→12:04)
[2016-06-17] MEDS: FORMOTEROL FUMARATE INHALATION SCH (07:17)
[2016-06-17] MEDS ORDERED: predniSONE 5 mg Tablet PO SCH (08:30)
[2016-06-17] MEDS: Senna-Docusate 8.6-50 mg Tablet PO SCH (08:30)
[2016-06-17] MEDS: Pantoprazole 40 mg ER24 Tablet PO SCH (08:35)
[2016-06-17] MEDS: MeTOProlol XL 50 mg ER24 Tablet PO SCH (08:38)
[2016-06-17] MEDS: Fluticasone 100 mCg Inhaler INHALATION SCH (08:42)
[2016-06-17] MEDS ORDERED: FERR-74 PO (10:09)
--- NOTE | 2016-06-17 10:10 | NUR ---
Social Work: Discharge Data: Pt is on day 20 of hospitalization. EMR reviewed. D/C orders are in. [employer] notified Avelino Rouse with [employer], F2F faxed to them, access previously given. No further d/c planning needs at this time. [employer]AL will continue to follow if needs arise. Assessment: Pt with caregiving at baseline. Plan: Pt will d/c home via POV today with daughter with [facility], RN/PT/OT. No further d/c planning needs at this time. [employer] PROFESSIONAL will continue to follow if needs arise. MIGUEL Recinos
[2016-06-17 10:27] VITALS: BP 143/63; PULSE 83; RESP 18; O2SAT 95
--- NOTE | 2016-06-17 10:28 | PCM.DIMED ---
Discharge Instructions Date of Service Jun 17, 2016 Dates of Hospitalization May 28, 2016 at 17:19 Discharge Diagnosis Discharge Diagnosis # Right side peripheral lung mass. present on admission. unclear etiology as of yet - post two attempted biopsies, both of which show no evidence of malignancy - both of these biopsies were complicated by pneumothorax - cultures and infectious studies also negative so far - NAMAN as well as double stranded DNA are both positive raising possibility of vasculitis and thus will need close followup by Rheumatology as an outpatient which needs to be setup by primary care provider as soon as possible. # Acute pneumothorax. Iatrogenic after lung biopsies. Not present on admission. Resolved after treatment with chest tube (removed on 06/16/16) # Hemoptysis (coughing up blood), present on admission. ongoing but improved - etiology unclear and workup ongoing as noted above. # Anemia, combination of acute blood loss, iron deficiency and anemia of chronic disease. present on admission. - blood count remains stable. # Supra-therapeutic INR due to anticoagulation with Warfarin. Present on admission. Corrected and reversed with vitamin K given on 05/29/16 # COPD Exacerbation/Pneumonia. Acute and present on admission. Improved # Chronic hypertension. stable. # CHF (diastolic and chronic). stable # Valvular Heart Disease. stable # Cardiomyopathy, chronic. presumed stable. - Suspect hypertensive heart disease and unsure about the cause of valvular disease # Acute kidney injury on top of Chronic Kidney Disease 3. present on admission. Resolved. # Acute thrombocytopenia. present on admission. Resolved. # History of DVT/Pulmonary embolism - No acute pulmonary embolus noted on CTA of chest during this hospital (05/30/16 ) Diet Low fat, Low Sodium, Heart Healthy Activity No restrictions Call your provider Fever or Chills, Shortness of breath, Bleeding, Chest pain, Vomitting Patient Instructions Seek immediate medical attention if any new or worsening signs or symptoms occur. Follow-up plan 1. Followup with primary care provider (Dr. Alston) in 2-5 days and for consideration of outpatient Rheumatology referral. 2. Followup with Infectious Disease clinic (Dr. Oshea) in 2 weeks. Call to setup appointment [address] [id number] 3. Followup with pulmonology (Dr. Foley) in 4 weeks. Call to setup appointment [address] [address] 4. Followup with Rheumatology as noted above. Follow-up Provider: Cam Alston MD Follow-up with PCP in: 1 week Provider: Otilio Oshea MD Follow-up in: 2 weeks Mid-level Provider (F9): Dalila Foley MD Follow-up with Mid-level in: 4 weeks Carlos Manuel Pringle Jun 17, 2016 10:28
[2016-06-17 12:04] VITALS: PULSE 62; RESP 20
--- NOTE | 2016-06-17 13:19 | NUR ---
Discharge Pt d/c home with daughter at 1319 via wc on 1L O2 from home. Discharge info discussed with pt, questions answered. All personal belongings left home with pt-including home meds. Pt denied pain. VSS. IV d/c prior to leaving.
--- NOTE | 2016-06-17 17:42 | PCM.DC.MED ---
Discharge Summary Date of Service Jun 17, 2016 Dates of Hospitalization Date of Hospital Admission May 28, 2016 at 17:19 Date of Discharge: Jun 17, 2016 Providers: Admitting Physician: Wisam Burns MD Primary Care Physician: Cam Alston MD Attending Physician: Wisam Burns MD Diagnosis at Time of Discharge Diagnosis at Time of Discharge # Right side peripheral lung mass. present on admission. unclear etiology as of yet - post two attempted biopsies, both of which show no evidence of malignancy - both of these biopsies were complicated by pneumothorax - cultures and infectious studies also negative so far - NAMAN as well as double stranded DNA are both positive raising possibility of vasculitis and thus will need close followup by Rheumatology as an outpatient which needs to be setup by primary care provider as soon as possible. # Acute pneumothorax. Iatrogenic after lung biopsies. Not present on admission. Resolved after treatment with chest tube (removed on 06/16/16) # Hemoptysis (coughing up blood), present on admission. ongoing but improved - etiology unclear and workup ongoing as noted above. # Anemia, combination of acute blood loss, iron deficiency and anemia of chronic disease. present on admission. - blood count remains stable. # Supra-therapeutic INR due to anticoagulation with Warfarin. Present on admission. Corrected and reversed with vitamin K given on 05/29/16 # COPD Exacerbation/Pneumonia. Acute and present on admission. Improved # Chronic hypertension. stable. # CHF (diastolic and chronic). stable # Valvular Heart Disease. stable # Cardiomyopathy, chronic. presumed stable. - Suspect hypertensive heart disease and unsure about the cause of valvular disease # Acute kidney injury on top of Chronic Kidney Disease 3. present on admission. Resolved. # Acute thrombocytopenia. present on admission. Resolved. # History of DVT/Pulmonary embolism - No acute pulmonary embolus noted on CTA of chest during this hospital (05/30/16 ) Consultations 1. ID 2. Pulmonology Procedures XRay, CTs & MRIs . X-RAY CHEST ONE VIEW, PORTABLE 05/28/2016 IMPRESSION: Right mid and lower lung patchy radiopacities suspicious for aspiration/infection superimposed on severe centrilobular emphysema. Short interval followup is recommended to ensure resolution of this finding and exclude underlying pulmonary pathology. X-RAY CHEST, TWO VIEWS 05/30/2016 IMPRESSION: 1. Mid right and lower lung diffuse interstitial opacities redemonstrated not significantly changed which may be related to aspiration/infection but pulmonary hemorrhage cannot be excluded. If indicated chest CT scan could be performed for further characterization. 2. Emphysematous changes redemonstrated. X-RAY CHEST, TWO VIEWS 06/03/2016 IMPRESSION: Trace apical right sided pneumothorax. X-RAY CHEST ONE VIEW, PORTABLE 06/05/2016 IMPRESSION: Resolved right pneumothorax and patchy opacity in the right lung base as well as focal opacity, stable compared to prior exam. Continued radiographic surveillance to resolution is recommended. X-RAY CHEST, TWO VIEWS 06/06/2016 IMPRESSION: Resolved trace right pneumothorax otherwise no change from prior exam. Continued radiographic surveillance to resolution is recommended. CT ANGIO CHEST PULMONARY EMBOLISM 05/30/2016 IMPRESSION: 1. Consolidative airspace opacity throughout the right lower lobe suspicious for aspiration/infection. Aspiration secondary to hemoptysis could also cause this appearance. 2. Discrete mass lesion within the lateral aspect of the right lower lobe. This finding is suspicious for a discrete neoplastic mass. Additionally, 2 spiculated lesions are present within the left lung base suspicious for neoplastic lesions. If clinically indicated, the right lower lobe mass may be amenable to CT-guided percutaneous biopsy. Of note, the patient is at increased risk for complication such as pneumothorax given the extensive emphysematous disease. 3. Solitary enlarged subcarinal lymph node. Differential considerations include reactive/infectious etiologies and korin metastasis. 4. No acute pulmonary embolus. 1. CT-guided lung biopsy. 06/02/[address]-guided chest tube placement. IMPRESSION: 1. CT guided chest tube placement for treatment of pneumothorax encountered during lung biopsy. 2. Successful CT-guided biopsy of left lung base nodule. US VENOUS LEG DUPLEX BILATERAL 05/30/2016 IMPRESSION: No deep venous thrombosis identified within either the left or right lower extremities. PROCEDURE: X-RAY CHEST, TWO VIEWS IMPRESSION: Resolved trace right pneumothorax otherwise no change from prior exam. Continued radiographic surveillance to resolution is recommended. Date of Service: 06/17/16 0500 PROCEDURE: X-RAY CHEST ONE VIEW, PORTABLE ([id number]) IMPRESSION: 1. No pneumothorax status post interval withdrawal of right basilar pleural pigtail catheter. 2. Recently biopsied lateral right lung base mass appears unchanged. Dictated by: Brendan Alanis M.D. on 06/17/2016 at 6:55 Approved by: Brendan Alanis M.D. on 06/17/2016 at 6:57 Cardiac Echo Impression Echocardiogram Report: Interpretation Summary Left ventricular systolic function is moderately reduced with the ejection fraction estimated to be 40-45% but has significantly improved compared to the prior exam. There is mild to moderate global hypokinesis that is significantly improved compared to the previous study but remains worse in the distal anteroseptum, apex, and periapical sgemtns which are essentially akinetic and unchanged from the previous study. Assessment of diastolic parameters indicates a relaxation abnormality of the left ventricle, consistent with normal filling pressures, and is unchanged compared to the previous study. The right ventricle is normal in size and function and has markedly improved compared to the previous study. The right ventricular systolic pressure is estimated at 39 mmHg assuming a right atrial pressure of 3 mm Hg, and is likely significantly lower compared to the previous study. The left atrium is mildly dilated and has mildly increased in size since the prior echo exam. Right atrial size is normal and has significantly decreased in size. There is moderate mitral regurgitation that is unchanged compared to the previous study, and mild to moderate tricuspid regurgitation that has significantly improved compared to the previous study. The ascending aorta is at the upper limits of normal in size and unchanged compared to the previous study. There is no pleural effusion seen, suggesting resolution of the previously seen effusions on the previous study. Other Diagnostics DATE COLLECTED:06/02/2016 16:33 SPECIMEN: Lung Biopsy CLINICAL HISTORY: RIGHT LUNG MASS 1). RIGHT LOWER LUNG MASS FINAL DIAGNOSIS: 1.BIOPSIES, RIGHT LOWER LUNG MASS: MINUTE FRAGMENTS OF PULMONARY TISSUE WITH DILATED AIR SPACES CONSISTENT WITH EMPHYSEMA. TWO FRAGMENTS OF PULMONARY TISSUE WITH PROMINENT NONSPECIFIC FIBROSIS. NEGATIVE FOR EVIDENCE OF NEOPLASM. GROSS DESCRIPTION: The specimen is received in one formalin filled container labeled with the patient's name, sublabeled "right lung mass" and consists of multiple white garcia tiny fragments of cylindrical shaped tissue which aggregate to 0.5 x 0.1 x 0.1 CM. The specimen is filtered and entirely submitted in one cassette. 06/02/2016 DAC MICRO DESCRIPTION: See diagnosis. Brief History For details please refer to the H&P. Briefly, 75-year-old male admitted 05/28/16 with pneumonia/pulmonary hemorrhage. He was in acute respiratory failure that resolved overnight after admission. Hospital Course # Right side peripheral lung mass-a CT-guided needle biopsy was performed 2016. - Patient developed a postprocedure pneumothorax and had a chest tube placed - Lung biopsy x 2 negative for neoplasm - PCR studies and culture negative so far - Appreciate ID and pulmonology consults. - NAMAN as well as double stranded DNA are both positive raising possibility of vasculitis and thus will need close followup by Rheumatology as an outpatient which needs to be setup by primary care provider as outpatient. # Acute pneumothorax. iatrogenic. not present on admission. seems resolved - appreciate pulmonology consult. - chest tube removed on 06/16/16 per pulmonology # Hemoptysis-present on admission. ongoing but improved - further f/u w/ repeat imaging as outpatient # Pulmonary Hemorrhage/Pneumonia- seems to have stabilized with reversal of warfarin/anticoagulation. - DVT/ +/-PE (int prob v/q) 01/18/16, Doppler/CT angiogram negative for clot/PE 05/30 # Acute blood loss anemia Hgb remains stable - Corrected supra-therapeutic INR with vitamin K given on 05/29/16 - continue to hold anticoagulation # COPD Exacerbation/Pneumonia. Acute present on admission. Improved - IV Levaquin was given from 05/28-05/31/16, Levaquin was changed to 500mg by mouth q48 -06/03 and has subsequently been discontinued. - continue to taper prednisone - Continue Oxygen by NC # HTN/CHF/Valvular Heart Disease and Cardiomyopathy - Suspect patient has hypertensive heart disease and unsure about the cause of his valvular disease - Continue his usual Cardiac medicines of losartan, metoprolol, Lasix. - The BNP was 847. Patient does not seem clinically to be in overt heart failure, would use IV fluids cautiously # JG/Chronic Kidney Disease 3 - resolved with IVF # Thrombocytopenia - Now stabilized - Lovenox DVT prophylaxis is on hold due to the pulmonary hemorrhage and hemoptysis. # Supra-therapeutic INR - resolved. as noted above # DVT/PE 02/01-patient is coming up on 6 months of therapy with there are ongoing issues risk of warfarin outweighs benefit at this point in time and is thus discontinued. by day of d/c lungs CTA bilat. pt speaking in full sentences and denies any SOB. Exam Vital Signs (Last) Date Time Temp Pulse Resp B/P Pulse Ox O2 Delivery O2 Flow Rate FiO2 06/17/16 12:04 62 20 Nasal Cannula 1.00 06/17/16 10:27 36.5 143/63 95 Test 05/28/16 14:10 05/28/16 15:15 05/29/16 19:05 05/30/16 06:10 Pro-B-Type Natriuretic Peptide 847.7pg/mL (0-486) Hold Craven Top Tube Received (Received) Reticulocyte Count,Calculated 1.1% (0.6-2.6) Iron Level 25ug/dL (35-150) Total Iron Binding Capacity 221ug/dL (250-450) Percent Iron Saturation 11%sat (15-50) Unsaturated Iron Binding 195.7ug/dL Ferritin 1ng/mL (30-400) Vitamin B12 Level 213pg/mL (211-946) Total Creatine Kinase 117U/L (21-232) Test 05/31/16 06:15 06/02/16 06:05 06/06/16 06:23 06/09/16 06:17 Troponin T 0.010ug/L (0.0-0.011) Phosphorus Level 3.7mg/dL (2.5-4.9) C-Reactive Protein 0.4mg/dL (0.0-0.5) Prothrombin Time 10.4sec (8.1-12.5) Prothromb Time International Ratio 0.97ratio Cryptococcus Antibody Negative (Neg:<1:2) Test 06/10/16 05:20 06/10/16 10:40 06/11/16 06:57 06/12/16 08:00 Magnesium Level 2.3mg/dL (1.6-2.6) Lactate Dehydrogenase 216U/L (100-190) Hold Urine Received (Received) Neutrophils (%) (Auto) 65.3% (40-74) Lymphocytes (%) (Auto) 17.2% (14-46) Monocytes (%) (Auto) 14.1% (4-12) Eosinophils (%) (Auto) 1.8% (0-5) Basophils (%) (Auto) 0.2% (0-3) Total Bilirubin 0.5mg/dL (0.0-1.2) Aspartate Amino Transf (AST/SGOT) 15U/L (0-50) Alanine Aminotransferase (ALT/SGPT) 12U/L (0-44) Alkaline Phosphatase 74U/L (25-160) Total Protein 5.9g/dL (6.4-8.4) Albumin 3.6g/dL (3.4-5.0) Procalcitonin 0.06ng/mL (0.00-0.08) Test 06/14/16 05:00 06/14/16 11:08 06/16/16 05:20 White Blood Count 9.6th/mm3 (3.8-10.1) Red Blood Count 3.46mil/mm3 (4.40-5.80) Hemoglobin 10.4g/dL (13.8-17.2) Hematocrit 32.8% (41.0-50.0) Mean Corpuscular Volume 94.8fL (81-100) Mean Corpuscular Hemoglobin 30.1pg (27.0-35.0) Mean Corpuscular Hemoglobin Concent 31.7% (32.0-37.0) Red Cell Distribution Width 15.4% (12.3-15.4) Platelet Count 158bil/L (150-400) Myeloperoxidase <9.0U/mL (0.0-9.0) Rheumatoid Factor 10.5IU/mL (0.0-13.9) Anti-Cyclic Citrullinated Peptide 8units (0-19) Anti-Nuclear Antibody Screen Positive (Negative) Anti-Nuclear Antibody Comment Comment (.) Cytoplasmic ANCA (c-ANCA) Antibody <1:20titer (Neg:<1:20) Proteinase 3 (PR3) Antibodies <3.5U/mL (0.0-3.5) Atypical p-ANCA <1:20titer (Neg:<1:20) Perinuclear ANCA (p-ANCA) Antibody <1:20titer (Neg:<1:20) SS-A/Ro Antibody <0.2AI (0.0-0.9) SS-B/La Antibody <0.2AI (0.0-0.9) Sm ([place]) IgG Antibody, Quant <0.2AI (0.0-0.9) REHAB MANAGER Antibody <0.2AI (0.0-0.9) Anti-Double Strand DNA Antibody 17IU/mL (0-9) Sodium Level 137mEq/L (134-144) Potassium Level 3.8mEq/L (3.5-5.2) Chloride Level 99mEq/L (97-108) Carbon Dioxide Level 26mmol/L (18-29) Blood Urea Nitrogen 19mg/dL (8-27) Creatinine 1.13mg/dL (0.76-1.27) Estimat Glomerular Filtration Rate 67mL/min (>59) Glucose Level 95mg/dL (60-99) Calcium Level 9.2mg/dL (8.5-10.1) Microbiology Results Cultures are negative at 5 days. Discharge Medications Discharge Medications ([Senna/Docusate Sodium]) 1 TABLET TABLET 2 TABLET PO DAILY Prescribed by: JAMIL BRIZUELA MD ([Performist]) 20 MCG INHALATION BID (Reported) Albuterol/Ipratropium (Combivent Respimat Inhal Priddy) 120 Spr/4 Gm Inhaler 1 PUFF IH QID (Reported) Budesonide (Pulmicort Flexhaler) 1 Puff/90 Mcg Aerp 1 PUFF IH BID (Reported) Ferrous Sulfate (Feosol) 325 Mg Tablet 325 MG PO DAILYWM Prescribed by: MARY DUARTE MD Fluticasone/Salmeterol (Advair 100-50 Diskus) 60 Puffs/Inh Disk 1 PUFF INHALATION BID Prescribed by: JAMIL BRIZUELA MD Furosemide (Furosemide) 40 Mg Tablet 40 MG PO DAILY (Reported) Losartan Potassium (Losartan Potassium) 100 Mg Tablet 100 MG PO DAILY (Reported ) Metoprolol Succinate ER (Metoprolol Succinate ER) 50 Mg Tab.er.24h 50 MG PO BID (Reported) Pantoprazole DR (Pantoprazole DR) 40 Mg Tablet.dr 40 MG PO DAILY (Reported) Trazodone (Trazodone) 150 Mg Tablet 150 MG PO HS (Reported) Followup Plan Disposition: Home Follow-up plan 1. Followup with primary care provider (Dr. Alston) in 2-5 days and for consideration of outpatient Rheumatology referral. 2. Followup with Infectious Disease clinic (Dr. Oshea) in 2 weeks. Call to setup appointment [address] [id number] 3. Followup with pulmonology (Dr. Foley) in 4 weeks. Call to setup appointment [address] [id number] 4. Followup with Rheumatology as noted above. Discharge Diet: Low fat, Low Sodium, Heart Healthy Discharge Activity: No restrictions Patient Instructions Seek immediate medical attention if any new or worsening signs or symptoms occur. Follow-up Provider: Cam Alston MD Follow-up with PCP in: 1 week Provider: Otilio Oshea MD Follow-up in: 2 weeks Mid-level Provider: Dalila Foley MD Follow-up with Mid-level in: 4 weeks Time spent 35 min copies to: Cam Alston MD; Dalila Foley MD; Otilio Oshea MD, Masoud Jun 17, 2016 17:42
== END 2016-06-17 13:27 | disposition home health service (06) | DRG 314 ==
LOC: SED 13:55 → MPC 17:19
PROVIDERS: ADMIT Family Medicine; ATTEND Family Medicine
PROC: 4A033R1 Measurement of Arterial Saturation, Peripheral, Percutaneous Approach (ICD-10-PCS; 2016-05-31)
PROC: 0BBF3ZX Excision of Right Lower Lung Lobe, Percutaneous Approach, Diagnostic (ICD-10-PCS; principal; 2016-06-02)
PROC: 0W9930Z Drainage of Right Pleural Cavity with Drainage Device, Percutaneous Approach (ICD-10-PCS; 2016-06-02)
PROC: 0BBF3ZX Excision of Right Lower Lung Lobe, Percutaneous Approach, Diagnostic (ICD-10-PCS; 2016-06-09)
DX: I28.8 Other diseases of pulmonary vessels (principal); J18.9 Pneumonia, unspecified organism; J96.00 Acute respiratory failure, unspecified whether with hypoxia or hypercapnia; I50.43 Acute on chronic combined systolic (congestive) and diastolic (congestive) heart failure; R04.89 Hemorrhage from other sites in respiratory passages; D62 Acute posthemorrhagic anemia; J44.1 Chronic obstructive pulmonary disease with (acute) exacerbation; N17.9 Acute kidney failure, unspecified; R04.2 Hemoptysis; J95.811 Postprocedural pneumothorax; R91.8 Other nonspecific abnormal finding of lung field; I11.0 Hypertensive heart disease with heart failure; T70.29XA Other effects of high altitude, initial encounter; Z79.01 Long term (current) use of anticoagulants; J43.2 Centrilobular emphysema; Z86.718 Personal history of other venous thrombosis and embolism; Z87.891 Personal history of nicotine dependence; D69.6 Thrombocytopenia, unspecified; Y84.8 Other medical procedures as the cause of abnormal reaction of the patient, or of later complication, without mention of misadventure at the time of the procedure